=== PATIENT | female | born 1960 | race Caucasian/White ===

== ENCOUNTER 2025-03-28 08:31 | Emergency (ER) | payer OTHER, SELFPAY ==
[2025-03-28] VITALS (11 sets, daily range): BP systolic 162–191; BP diastolic 78–104
[2025-03-28 08:55] LABS: % Basophils 0.7 % (0-2); % Eosinophils 0.9 % (0-6); % Immature Granulocytes 1.1 % (0-0.5); % Lymphocytes 13.4 % (20.5-51.1); % Monocytes 5.4 % (1.7-9.3); % Neutrophils 78.5 % (42.2-75.2); Absolute Basophils 0.1 10^3/uL (0-0.2); Absolute Eosinophils 0.1 10^3/uL (0-0.7); Absolute Immature Granulocytes 0.1 10^3/uL (0-0.05); Absolute Lymphocytes 1.4 10^3/uL (1.2-3.4); Absolute Monocytes 0.6 10^3/uL (0.1-0.6); Hematocrit 27.3 % (37.0-47.0); Hemoglobin 9.5 g/dL (12.0-16.0); Mean Corp Hgb Conc. 34.8 g/dL (33.0-37.0); Mean Corpuscular Hgb 31.1 pg (27.0-31.0); Mean Corpuscular Volume 89.5 fL (81.0-99.0); Mean Platelet Volume 10.3 fL (7.4-10.4); Nucleated Red Blood Cells % 0 %; Platelet Count 355 10^3/uL (130-400); Red Blood Cell Count 3.05 10^6/uL (4.20-5.40); Red Cell Dist. Width 14.5 % (11.5-14.5); White Blood Cell Count 10.2 10^3/uL (4.8-10.8)
--- NOTE | 2025-03-28 08:59 | ED.GENMED ---
History of Present Illness
General
Chief Complaint: Vomiting Blood
Source: patient, records and intermediate records
Exam Limitations: none
Time Seen by Provider: 03/28/25 08:34
Nursing documentation reviewed up to this point in time: agreed with
History of Present Illness
History of Present Illness:
64-year-old female with a past medical history of hypertension, diabetes, ESRD on dialysis, GERD and Wallis's esophagus, hypothyroidism, chronic anemia, TIA, chronic left foot wound, chronic pancreatitis with GJ tube who presents to the emergency
department from [facility] for evaluation of vomiting. Patient notably was admitted at [facility] about 6 weeks ago�partha says she was admitted for infected foot and redness and unfortunately during this hospitalization had to
be transition from peritoneal dialysis (had been on PD for 2.5 years) to hemodialysis; she also had a GJ tube placed for vomiting related to chronic pancreatitis. She presents today with vomiting that she says started yesterday evening and has been
profuse and constant since. She says vomit is dark brown (coffee-ground emesis in basin during assessment). She reports some mild discomfort in the epigastrium. Denies any diarrhea or constipation. She denies fever or chills. Has not had any
chest pain. She denies any other complaints. Her last dialysis session was 2 days ago on Wednesday she reports a full uncomplicated session; she was due for dialysis this morning but instead was sent to the ER.
Review of Systems
Review of Systems
All Other Systems: ROS reviewed and negative except as documented in HPI and ROS
Constitutional: Denies fever
Respiratory: Denies trouble breathing
Cardiac: Denies chest pain
ABD/GI: Reports abdominal pain, nausea and vomiting; Denies diarrhea
: Denies flank pain
Musculoskeletal: Denies neck pain
Neurological: Denies headache
Phy Exam
Physical Exam
Physical Exam:
General: Awake, alert, oriented x3; holding emesis bag occasionally vomiting
Head: Normocephalic, atraumatic
Eyes: Conjunctiva normal, sclera anicteric
Throat: Airway intact, mucous membranes slightly dry
Neck: Trachea midline, supple without meningismus
Lungs: Clear to auscultation bilaterally, no wheezing, rales, rhonchi
Heart: Regular rate and rhythm, no murmurs, gallops, or rubs
Abd: Soft, non distended, mildly tender in the epigastrium; she has a GJ tube in place; she has surgical incision in the mid abdomen with spencer in place�no drainage, no erythema, warmth or signs of infection near surgical site
Neuro: No gross deficits
Skin: no rash; hemodialysis catheter right chest wall with no signs of infection; chronic left foot wound
Extremities: Warm and well-perfused
Scores
Heart Failure Risk
Heart Failure Risk Score: Not Applicable
Heart Score for Chest Pain Patients
STEMI patient?: Not applicable
Withdrawal Assessment of Alcohol
Withdrawal Assessment Completed?: Not applicable
Course
Orders/Labs/Results
Orders:
Orders
03/28/25 08:42
Bedside Glucose- Treatment ONCE
Ondansetron Injectable [Zofran] 4 mg IV NOW STA
03/28/25 08:43
Electrocardiogram (*1) Urgent
Reason for Study: QTc Monitoring
CT Abd/pelvis W Iv Cont Urgent
Comment:
Reason For Exam: abd pain, N/V, recent GJ tube
EKG- Treatment ONCE
Urinalysis Reflex To Culture Urgent
0.9% Sodium Chloride 500 ml [Nss] 500 ml IV BOLUS
03/28/25 08:48
Complete Blood Count/With Diff Urgent
Troponin I Urgent
03/28/25 09:21
Pantoprazole [Protonix IV] 40 mg IV NOW STA
03/28/25 10:11
Basic Metabolic Panel Stat
Lipase Stat
PTT Urgent
Prothrombin Time Urgent
03/28/25 10:54
Type+Screen Routine
BBK Wristband Number:
Magnesium Urgent
Potassium Urgent
03/28/25 12:03
ABO2 Routine
BBK Wristband Number:
Associate notified that ABO2 has been ordered: [id number]
Date: 03/28/25
Time: 11:20
Automotive Assembler ID: [id number]
03/28/25 15:32
Vital Signs- Treatment ONCE
Frequency: Once
Comment: respiratory rate
Abnormal Lab Results
03/28/25 03/28/25 03/28/25
08:48 10:11 10:54
RBC 3.05 L 10^6/uL
(4.20-5.40)
Hgb 9.5 L g/dL
(12.0-16.0)
Hct 27.3 L %
(37.0-47.0)
MCH 31.1 H pg
(27.0-31.0)
Abs Immat Gran (auto) 0.1 H 10^3/uL
(0-0.05)
Absolute Neuts (auto) 8.0 H 10^3/uL
(1.4-6.5)
Immature Gran % 1.1 H %
(0-0.5)
Neutrophils % 78.5 H %
(42.2-75.2)
Lymphocytes % 13.4 L %
(20.5-51.1)
APTT 36.7 H Sec
(23.4-35.0)
Sodium 132 L mmol/L
(135-145)
Chloride 91 L mmol/L
(98-107)
BUN 33 H mg/dl
(7-17)
Creatinine 2.1 H mg/dL
(0.6-1.0)
Glucose 123 H mg/dl
(70-99)
Magnesium 2.5 H mg/dl
(1.6-2.3)
POC Glucose
03/28/25
12:09
RBC
Hgb
Hct
MCH
Abs Immat Gran (auto)
Absolute Neuts (auto)
Immature Gran %
Neutrophils %
Lymphocytes %
APTT
Sodium
Chloride
BUN
Creatinine
Glucose
Magnesium
POC Glucose 125 H mg/dl
(70-99)
03/28/25 08:48
03/28/25 10:54
Vital Signs
Initial and Last Documented VS:
Initial Vital Signs
Pulse Pulse Ox
102 95
03/28/25 08:39 03/28/25 08:39
Last Documented Vital Signs
Temp Pulse BP Pulse Ox
36.5 C 91 178/82 93
03/28/25 08:43 03/28/25 15:45 03/28/25 15:00 03/28/25 15:45
MDM/Problems Addressed
Differential Diagnosis Includes:
Pancreatitis, cholecystitis, cholelithiasis, gastritis, bowel obstruction, DKA, anginal equivalent, uremia
MDM/Problems Addressed:
64-year-old female with history as noted, recent hospitalization and placement of GJ tube for chronic pancreatitis presents to the ER for evaluation of nausea/vomiting�dark brown coffee-ground emesis noted on assessment. She is hypertensive and
mildly tachycardic but otherwise normal vitals. Physical exam is as above. Will place large-bore IV send labs including a CBC and a CMP, lipase, troponin, type and screen and coags. Will treat with IV PPI for some upper GI bleeding associated
with vomiting. Will check CT abdomen pelvis. Will monitor closely reassess after the above.
Labs reviewed: CBC shows anemia with a hemoglobin of 9.5�no priors available for comparison. CMP shows findings consistent with known ESRD. Her lipase is normal. CT abdomen pelvis shows no acute abnormalities. No additional vomiting since Zoan
here. Patient's is now at bedside�at this point I think she should be admitted for trending of hemoglobin and monitoring of bleeding with concern for upper GI bleed. She was given PPI. Patient and are requesting that she be
transferred to [facility] for continuity of care as all of her physicians are through [facility]. Will discuss with transfer center there.
Spoke with the hospitalist at [facility] (Dr. Bravo) and patient was accepted for transfer. Will monitor pending transport.
Chronic conditions affecting care:
ESRD, chronic pancreatitis
Acute Exacerbation and/or Progression of Chronic Illness:
Acutely hypertensive
Acute Exacerbation and/or Progression of Chronic Illness: HTN
*Radiology
Radiology exam reviewed: radiology read reviewed
*Pulse Oximetry
SaO2: 95
Oxygen Mode of Delivery: Room air
Patient hypoxic: no (95%)
*Critical Care Note
Total Time (30-74mins, 75-104mins- exclusive of procedures): Not Applicable
Data Reviewed
Source: patient, records and intermediate records
Patient Management
Discussion with other providers: Hospitalist (Discussed with accepting hospitalist at [facility])
Escalation/DeEscalation of care consider admission/obs:
Admission indicated�transfer
ED Attending Note
-
Portions of this chart may have been created with voice recognition software.� Occasional wrong word or��sound alike� substitutions may have occurred due to the inherent limitations of voice recognition software.
Discharge Plan
Departure
Patient Disposition: Acute Care Hospital
Date of Disposition: 03/28/25
Time of Disposition: 14:19
Discharge Problem:
Acute upper GI bleed
Referrals:
Mario Peres, [Family Provider, Internal Medicine]
Hospital Transfer
Other hospital: [facility]
I certify that the patient requires transfer: Yes
Discussed case with accepting physician: Dr. Aure Sampson
Reason for transfer: continuity of care PCP and other
Interventions
Interventions:
*Risk Screen - Suicide Last Done: 03/28/25 08:43
*General Assessment Last Done: 03/28/25 08:43
*Neglect/Abuse Screening Last Done: 03/28/25 08:43
*ED- Fall Risk Assessment Last Done: 03/28/25 12:32
*ED COVID-19 Vaccine History Last Done: 03/28/25 12:32
VY-Mndsyx-Xqpoadyltw Assessment Last Done: 03/28/25 09:05
ED- Cardiac Assessment Last Done: 03/28/25 08:44
ED- Pulmonary Assessment Last Done: 03/28/25 09:05
Discharge Date and Time
Print Language: CHADIAN
[2025-03-28 09:38] LABS: Troponin I 0.029 ng/ml
[2025-03-28] MEDS: PROTONIX IV 40 MG IV (09:45)
[2025-03-28] MEDS: ZOFRAN 4 MG IV ×2 (09:47→10:09)
[2025-03-28 10:30] LABS: INR 1.05; PT 14.2 Sec (11.4-14.6)
[2025-03-28 10:31] LABS: APTT 36.7 Sec (23.4-35.0)
[2025-03-28 10:36] LABS: Blood Urea Nitrogen 33 mg/dl (7-17); Calcium 9.2 mg/dl (8.4-10.2); Carbon Dioxide 29 mmol/L (22-30); Chloride 91 mmol/L (98-107); Estimated Creatinine Clearance 32 ml/min; Glucose 123 mg/dl (70-99); Lipase 34 U/L (23-300); Sodium 132 mmol/L (135-145); eGFR 25.51
[2025-03-28 11:20] LABS: Magnesium 2.5 mg/dl (1.6-2.3); Potassium 4.7 mmol/L (3.5-5.1)
[2025-03-28 12:12] LABS: Glucose - Point of Care 125 mg/dl (70-99)
--- NOTE | 2025-03-28 14:10 | EDRN ---
Pt and family state that the PT is unable to give a urine sample. She states that her kidneys are 'shut down' and that we would have to pump her full of fluid and cath her. Provider made aware and stated that he is ok without the UA.
[2025-03-28] MEDS: MORPHINE SULFATE 2 MG IV (18:35)
== END 2025-03-28 20:00 | disposition short-term general hospital (02) ==
LOC: EMR 08:31
PROVIDERS: EMERGENCY PHYSICIAN Emergency Medicine; FAMILY PHYSICIAN Internal Medicine
DX: K92.2 Gastrointestinal hemorrhage, unspecified (principal); E03.9 Hypothyroidism, unspecified; E11.22 Type 2 diabetes mellitus with diabetic chronic kidney disease; I12.0 Hypertensive chronic kidney disease with stage 5 chronic kidney disease or end stage renal disease; N18.6 End stage renal disease; Z99.2 Dependence on renal dialysis; Z86.73 Personal history of transient ischemic attack (TIA), and cerebral infarction without residual deficits; Z93.1 Gastrostomy status; K86.1 Other chronic pancreatitis
CPT/HCPCS: 96374; 96375; 99285; 74177; 80048; 82962; 83690; 83735; 84132; 84484; 85025; 85610; 85730; 86850; 86900; 86901; 93005; Q9967

== ENCOUNTER 2025-04-13 11:17 | Inpatient (IN) | payer OTHER, SELFPAY ==
[2025-04-13] VITALS (42 sets, daily range): BP systolic 114–219; BP diastolic 62–130; PULSE 85; BMI 36.8; BMI 35.2
--- NOTE | 2025-04-13 09:38 | EDRN ---
Port CXR done at this time.
--- NOTE | 2025-04-13 09:44 | ED.GENMED ---
History of Present Illness
General
Chief Complaint: Breathing Problem
Source: patient, records, spouse and ambulance crew
Exam Limitations: none
Time Seen by Provider: 04/13/25 09:31
Nursing documentation reviewed up to this point in time: agreed with
History of Present Illness
History of Present Illness:
64-year-old female with a past medical history of hypertension, diabetes, ESRD on dialysis, GERD, hypothyroidism, chronic anemia, TIA, chronic pancreatitis with GJ tube who presents to the emergency department from [facility] for
evaluation of shortness of breath. Patient reports that she woke up today with significant shortness of breath�per EMS report staff noted she was hypoxic and tachypneic and EMS was called to bring her to the hospital. Per EMS on their arrival she
was hypoxic to 82% and tachypneic with labored breathing; she was placed on 4 L nasal cannula with some improvement and transported to the emergency room. Patient reports that she feels very short of breath but denies feeling chest pain. She has
had mild cough recently. She has some nausea but no vomiting. Has not noticed increased swelling in the legs. She was due for dialysis today but due to her respiratory symptoms did not receive treatment. Of note she was recently admitted at [facility] for prolonged hospitalization at which point she was transition from peritoneal dialysis to hemodialysis and had GJ tube placed; she returned with upper GI bleeding to this emergency room on 03/28 and was transferred back to [facility] at
patient request before returning to [facility].
Review of Systems
Review of Systems
All Other Systems: ROS reviewed and negative except as documented in HPI and ROS
Constitutional: Denies fever
Respiratory: Reports cough and trouble breathing
Cardiac: Denies chest pain
ABD/GI: Reports nausea; Denies abdominal pain or vomiting
Musculoskeletal: Denies edema
Neurological: Denies dizzy or headache
Phy Exam
Physical Exam
Physical Exam:
General: Awake, alert, moderate respiratory distress
Head: Normocephalic, atraumatic
Eyes: Conjunctiva normal, sclera anicteric
Throat: Airway intact, handling secretions
Neck: Trachea midline, slight JVD
Lungs: Patient has diffuse wheeze, tachypnea, speaking in 1-2 word sentences, hypoxic requiring 4 L nasal cannula
Heart: Tachycardia with regular rhythm, no murmurs, gallops, or rubs
Abd: Soft, non distended, nontender; GJ tube in place
Extremities: Trace edema on the legs bilaterally, extremities warm and well-perfused
Scores
Heart Failure Risk
Heart Failure Risk Score: Not Applicable
Heart Score for Chest Pain Patients
STEMI patient?: Not applicable
Withdrawal Assessment of Alcohol
Withdrawal Assessment Completed?: Not applicable
Course
Orders/Labs/Results
Orders:
Orders
04/13/25 09:31
Electrocardiogram (*1) Urgent
Reason for Study: Chest Pain
Cardiac Monitoring- Treatment ONCE
EKG- Treatment ONCE
04/13/25 09:32
CR Chest Portable - 1 View Urgent
Comment:
Reason For Exam: sob
Reason Study Needs to be Portable: Unable to Transport
04/13/25 09:37
Nitroglycerin Sublingual [Nitrostat (Sublingual)] 0.4 mg SL NOW STA
04/13/25 09:43
Complete Blood Count/With Diff Urgent
Comprehensive Metabolic Panel Urgent
Ferritin Urgent
Iron Urgent
NT-proBNP Urgent
Total Iron Binding Urgent
04/13/25 09:51
Furosemide [Lasix] 40 mg IV NOW STA
Furosemide [Lasix] 80 mg IV NOW STA
04/13/25 Lunch
NPO
Allow oral meds: Yes
Allow clear liquids: No
04/13/25 10:09
NEPHROLOGY CONSULT Urgent
Consulting Provider: Kya Robbins
Was physician already notified: Yes
04/13/25 10:15
Type+Screen Urgent
Venous Blood Gas Urgent
%Oxygen/Room Air: 82%
04/13/25 10:56
Admit/Transfer Patient As Directed
Co-Sign Provider:
Level of Care: Inpatient admission
Assign to:: IMU- Intermediate Care
Physician / Group: Shahrzad Howard
Diagnosis: acute heart failure exacerbation
Reason for Hospitalization: acute heart failure, ESRD on HD
Expected length of stay greater than two midnights?: Yes
ELOS- Estimated Length of Stay in days: 3
I certify the patient meets the requirements for IP care: Yes
04/13/25 10:57
PRN Pain Medication Management As Directed
May give lesser potent ordered pain med per pt: Yes
preference::
Protocol:: Medication orders for pain may be administered in a
manner that supports deferring to patient preference
when the pt is:
- Requesting an ordered lesser potent pain medication.
Least to most potent pain medications are defined
as: acetaminophen < NSAID < tramadol < opioids
(morphine, oxycodone, hydromorphone).
- Requesting a lesser dose of the same medication IF
ORDERED.
- Requesting a less intrusive route of administration
if both routes are prescribed by the provider (PO <
IV).
04/13/25 11:00
Nitroglycerin 100 mg/250 ml [Nitroglycerin Premix] 100 mg in 250 ml IV PER PROTOCOL
Initial dose in mcg/min, then titrate:: 5
Titrate to keep:: SBP < 160 mmHg
Titrate by mcg/min:: 5 mcg/min, may increase by 10 mcg/min if dose > 20 mcg/min
Frequency of titrations (minutes):: every 3-5 minutes
Maximum dose in mcg/min:: 200
Begin to taper infusion when:: Remained at goal for 2hrs
Taper by mcg/min:: 5 mcg/min
Frequency of taper (minutes) if patient maintains goal:: 30
Taper to off?: Yes
If infusion off & no longer maintaining goal:: Contact Provider
04/13/25 11:01
Code Status As Directed
Resuscitation Status: Full Code
04/13/25 11:[address] Non Medication Order As Directed
Physician Order: please wait until arrives prior to sending patient upstairs (wants to accept
admission first)
Above order entered?: Yes
04/13/25 11:12
Epoetin Mor-Epbx [Retacrit] 10,000 units IV HD-ONCE ONE
Heparin 500 units IV HD-ONCE ONE
Heparin 500 units IV HD-ONCE ONE
Heparin See Dose Instructions INTRACATH HD-ONCE ONE
Hemodialysis treatment As Directed
Treatment date:: 04/13/25
Treatment type: Hemodialysis
Ultrafiltration (kg): 2.5-3.5
Treatment time (duration): 3 hours 30 minutes
Use dialysis access:: Tunneled Cath
Dialyzer:: Optiflux 160
Blood flow rate minimum: 350
Blood flow rate maximum: 400
Dialysis flow rate: 600 mL/min
Dialysate temperature: 37 degrees Celsius
Sodium (Na): 137
Potassium (K): 2
Calcium (Ca): 2.5
Bicarbonate (HCO3): 35
04/13/25 11:13
Add On- LAB Routine
Tests Added?: Iron, Ferritin, TIBC, iron % saturation
04/13/25 11:40
Troponin I Q6H
04/13/25 12:14
Acetaminophen [Tylenol] 650 mg TUBE Q6HPRN PRN mild pain
Bisacodyl [Dulcolax] 10 mg RECTAL DAILYPRN PRN constipation
HydrOXYZINE [Atarax] 25 mg TUBE Q6HPRN PRN itching
Oxycodone [Roxicodone Oral Solution] 15 mg TUBE Q6HPRN PRN severe pains
Polyethylene Glycol Powder [Miralax] 17 grams TUBE DAILYPRN PRN constipation
Scopolamine [Transderm-Scop] 1 patch TRANSDERM Q3D
Sucralfate [Carafate] 1 gram TUBE BID
ammonium lactate 1 applic TOPICAL DAILYPRN PRN
guaifenesin 200 mg TUBE Q4HPRN PRN
hydralazine 100 mg TUBE Q8H
melatonin 10 mg TUBE HSPRN PRN
04/13/25 12:14
Echo 2D MMode Color/Doppler Routine
Reason for Study: acute heart failure
Activity As Directed
Activity Level: As Tolerated
Nursing to Place Non Medication Order As Directed
Physician Order: please TT me afternoon Hg results
Obtain Records As Directed
Dates of Information to be Released: 2024
Type of Information Requested: Discharge Summary
Consults
ER Record
Comment: 2 admissions to [facility] this year
Pneumatic Compression Sleeves As Directed
Type: Knee high
Vital Signs As Directed
Frequency: Per unit guidelines
DX Deep Vein Thrombosis Video Routine
04/13/25 Dinner
Tube Feeding
At Your Request: Non-Participating
Tube Feeding Product: Nepro w/ Carb Steady
Initial continuous pump rate (mL/hr): 20 ml/hr
Advance to goal rate (mL/hr): 45
Flush Continuous pump feedings with water (mL/hr): 25
04/13/25 16:00
Hemoglobin Routine
Clonidine [Catapres] 0.3 mg TUBE TID
04/13/25 17:00
Troponin I Q6H
04/13/25 20:00
Cholestyramine [Questran] 4 gram TUBE BID
buspirone 30 mg TUBE BID
dorzolamide-timolol (PF) 1 drop BOTH EYES BID
nystatin 1 applic TOPICAL BID
04/13/25 22:00
FAMOTIDINE /peds [PEPCID /peds] 10 mg TUBE HS
Latanoprost [Xalatan Ophthalmic Solution] 1 drop BOTH EYES HS
Mirtazapine [Remeron] 15 mg TUBE HS
simvastatin [Zocor] 40 mg TUBE HS
04/13/25 23:00
Troponin I Q6H
04/14/25 06:00
Basic Metabolic Panel IN AM
Cardiovascular Evaluation IN AM
Complete Blood Count/No Diff IN AM
Magnesium IN AM
Levothyroxine [Synthroid] 50 mcg TUBE DAILY@0600
04/14/25 08:00
Aspirin Low Dose EC [Aspir Low (Enteric Coated)] 81 mg S DAILY
Bupropion Regular Release [Wellbutrin Regular Release] 300 mg TUBE DAILY
Docusate W/Senna [Senokot-S] 1 tablet TUBE DAILY
Doxazosin Mesylate [Cardura] 2 mg TUBE DAILY
Lansoprazole [Prevacid] 30 mg TUBE DAILY
Pyridoxine [Vitamin B-6] 50 mg TUBE DAILY
Abnormal Lab Results
04/13/25 04/13/25
09:43 10:15
WBC 12.8 H 10^3/uL
(4.8-10.8)
RBC 2.36 L 10^6/uL
(4.20-5.40)
Hgb 7.1 L g/dL
(12.0-16.0)
Hct 21.3 L %
(37.0-47.0)
RDW 15.3 H %
(11.5-14.5)
MPV 10.7 H fL
(7.4-10.4)
Abs Immat Gran (auto) 0.1 H 10^3/uL
(0-0.05)
Absolute Neuts (auto) 9.8 H 10^3/uL
(1.4-6.5)
Absolute Monos (auto) 1.2 H 10^3/uL
(0.1-0.6)
Neutrophils % 76.6 H %
(42.2-75.2)
Lymphocytes % 12.1 L %
(20.5-51.1)
Monocytes % 9.5 H %
(1.7-9.3)
VBG pO2 177 H mmHg
(30-50)
Sodium 130 L mmol/L
(135-145)
Potassium 5.4 H mmol/L
(3.5-5.1)
Chloride 97 L mmol/L
(98-107)
BUN 38 H mg/dl
(7-17)
Creatinine 1.8 H mg/dL
(0.6-1.0)
Glucose 180 H mg/dl
(70-99)
TIBC 173 L ug/dl
(265-497)
Ferritin 936.0 H ng/ml
(11.1-264.0)
Alkaline Phosphatase 326 H U/L
(38-126)
Total Protein 6.0 L g/dl
(6.3-8.2)
Albumin 2.8 L g/dl
(3.5-5.0)
04/13/25 09:43
04/13/25 09:43
Vital Signs
Initial and Last Documented VS:
Initial Vital Signs
Temp Pulse Resp BP Pulse Ox
36.9 C 102 30 219/103 86
04/13/25 09:20 04/13/25 09:20 04/13/25 09:20 04/13/25 09:20 04/13/25 09:20
Last Documented Vital Signs
Temp Pulse Resp BP Pulse Ox
36.7 C 82 9 125/67 97
04/13/25 12:42 04/13/25 14:30 04/13/25 14:30 04/13/25 14:30 04/13/25 14:37
MDM/Problems Addressed
Differential Diagnosis Includes:
Volume/circulatory overload, congestive heart failure/flash pulmonary edema, pneumonia, pneumothorax, pulmonary embolism, hypertensive crisis
MDM/Problems Addressed:
64-year-old female with extensive history as described presents from [facility] for evaluation of respiratory distress�hypoxia and tachypnea with increased work of breathing. On arrival here she is in moderate respiratory distress with hypoxia and
tachypnea requiring 4 L nasal cannula�oxygenation improved but she remains mildly tachypneic despite supplemental oxygen. Will monitor respiratory status very closely if work of breathing and tachypnea not improving may consider escalation of
BiPAP. She is severely hypertensive with a blood pressure of 219/103 on arrival. Will treat with nitroglycerin. Her exam seems most consistent with volume overload although congestive heart failure/flash pulmonary edema a consideration as well.
Case was discussed with nephrology for expeditious dialysis treatment. Patient still makes urine per her report in the meantime we will treat with 80 mg of IV Lasix. Will manage blood pressure as described above. Usual labs sent off including a
CBC and a CMP, proBNP. Will check VBG. Check stat chest x-ray. Monitor very closely and reassess after the above.
Chest x-ray reviewed by me shows signs consistent with pulmonary edema. On clinical reassessment her respiratory status has stabilized nasal cannula with acceptable oxygenation, improvement in her respiratory rate and work of breathing. Discussed
with nephrology and they are facilitating dialysis treatment. Patient given Lasix and nitroglycerin and her blood pressure is improving�down from 219/103 to 172/83. Continue to monitor very closely.
Lab work reviewed: CBC does show anemia with a hemoglobin of 7.1�prior hemoglobin here was 9.5. I spoke with patient and her brother who is now at the bedside and it sounds like her baseline is closer to 7 and so this is not necessarily an unusual
number for her today�in fact they were surprised to hear that she was at 9.5 on prior hemoglobin check. She has occasionally required transfusions from GI bleeding related to esophagitis and it sounds like her prior visit that resulted in transfer
to [facility] ended up in an endoscopy showing esophagitis as likely source of bleeding. She has been on Carafate and PPI. She has not had any hematemesis or hematochezia/melena since leaving [facility] recently she says. Nevertheless I did
consent for blood in case of need and we will need to trend her hemoglobin. On review of her chemistry today, signs consistent with ESRD. Case was discussed with hospitalist to facilitate admission for this patient.
Chronic conditions affecting care:
ESRD, hypertension
Acute Exacerbation and/or Progression of Chronic Illness:
Acutely hypertensive managed as above
Acute Exacerbation and/or Progression of Chronic Illness: HTN
*Pulse Oximetry
SaO2: 99
Nasal Cannula flow liters per minute: 2
Oxygen Mode of Delivery: Room air
Patient hypoxic: yes (82% on room air)
*EKG
Interpreted by ED Provider?: Yes
Heart Rate: 103
Rate: tachycardiac
Rhythm: sinus tachycardia
[place]: normal axis
Interval: normal interval
QRS Pattern: normal QRS
Ischemia: non-specific ST changes
*Critical Care Note
Total Time (30-74mins, 75-104mins- exclusive of procedures): 36
comment:
Critical care statement: A total of 36 minutes of critical care time was provided for this patient. This includes management of unstable vital signs, evaluation of the patient at bedside, frequent reassessment, discussion with
consultants/hospitalist, and review of pertinent medical records. This time was separate from time utilized to perform any aforementioned documented procedures
Data Reviewed
Review of Other/Old Records Reveals: Labs and Records
Source: patient, records, spouse, ambulance crew and jail records
Patient Management
Discussion with other providers: Hospitalist (Discussed with hospitalist) and Chemist Enzymes (Discussed with dry heat cabinet attendant)
Escalation/DeEscalation of care consider admission/obs:
Admission indicated
ED Attending Note
-
Portions of this chart may have been created with voice recognition software.� Occasional wrong word or��sound alike� substitutions may have occurred due to the inherent limitations of voice recognition software.
Discharge Plan
Departure
Patient Disposition: Admit
Date of Disposition: 04/13/25
Time of Disposition: 10:07
Admit to doctor: Blessingu
Presentation/result/management discussed w/ accepting MD/DO: Hospitalist
Discharge Problem:
Anemia, Volume overload, Pulmonary edema, Hypertensive crisis, Acute hypoxic respiratory failure
Interventions
Interventions:
*Risk Screen - Suicide Last Done: 04/13/25 09:29
*General Assessment Last Done: 04/13/25 09:29
*Neglect/Abuse Screening Last Done: 04/13/25 09:29
*ED- Fall Risk Assessment Last Done: 04/13/25 09:33
*ED COVID-19 Vaccine History Last Done: 04/13/25 09:33
*Nursing Disposition Last Done: 04/13/25 12:10
ED- Cardiac Assessment Last Done: 04/13/25 10:15
ED- Pulmonary Assessment Last Done: 04/13/25 10:15
Discharge Date and Time
Discharge Date/Time: 04/13/25 12:10
[2025-04-13] MEDS: NITROSTAT (SUBLINGUAL) 0.4 MG SL (09:47)
[2025-04-13 09:50] LABS: Hematocrit 21.3 % (37.0-47.0); Hemoglobin 7.1 g/dL (12.0-16.0); Mean Corp Hgb Conc. 33.3 g/dL (33.0-37.0); Mean Corpuscular Volume 90.3 fL (81.0-99.0); Nucleated Red Blood Cells % 0 %; Platelet Count 321 10^3/uL (130-400); Red Cell Dist. Width 15.3 % (11.5-14.5)
--- NOTE | 2025-04-13 09:55 | EDRN ---
Dr. Pickard in room w/ pt.
[2025-04-13 10:11] LABS: ALT (SGPT) 19 U/L (0-35); AST (SGOT) 34 U/L (14-36); Albumin 2.8 g/dl (3.5-5.0); Alkaline Phosphatase 326 U/L (38-126); Blood Urea Nitrogen 38 mg/dl (7-17); Calcium 8.8 mg/dl (8.4-10.2); Carbon Dioxide 22 mmol/L (22-30); Chloride 97 mmol/L (98-107); Estimated Creatinine Clearance 39 ml/min; Glucose 180 mg/dl (70-99); Potassium 5.4 mmol/L (3.5-5.1); Sodium 130 mmol/L (135-145); Total Protein 6.0 g/dl (6.3-8.2); eGFR 30.69
[2025-04-13] MEDS: LASIX 80 MG IV (10:20)
--- NOTE | 2025-04-13 10:20 | EDRN ---
Dr. Rosen in to see pt. POX on oxygen via NC 2lpm was 98%. Pt requesting more oxygen and Dr. Rosen increased oxygen to 3lpom via NC at this time.
[2025-04-13 10:23] LABS: Venous Blood Gas B.E. -0.8 mmol/L (-4 to +4); Venous Blood Gas O2 Sat % 99.5 %
--- NOTE | 2025-04-13 10:28 | EDRN ---
Case Management in to see pt.
--- NOTE | 2025-04-13 10:31 | HPS.HSE ---
Addendum entered and electronically signed by Shahrzad Howard MD 04/13/25 11:30:
updated by patient is on plavix for stents placed in right leg for PAD
she receives sodium thiosulfate for calciphylaxis which I ordered here
GI bleed was related to esophageal irritation which she was prescribed carafate for and takes by mouth
Original Note:
Family Physician
-
Family Physician: Mario Peres, DO
Chief Complaint
-
shortness of breath
History of Present Illness
Ms. 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
presents to the ER from [facility] with shortness of breath.
Patient found to be short of breath by staff, EMS noted patient to be hypoxic to 82% and tachypneic. Patient states last HD was on Wednesday. She has not missed sessions. she was feeling fine yesterday. No recent fevers/chills, no cough or
congestion. This morning she woke up very short of breath. She denies chest pain.
Patient was recently at [facility] for prolonged hospitalization where transitioned form peritoneal dialysis to HD and had GJ tube placed; then readmitted with anemia and GI Bleeding.
Patient states she was given her anti-HTN medications this morning.
Medical History
Past Medical History
Past Medical History: Reports Other (ESRD on HD, essential HTN, DM, GERD, Hypothyroidism, TIA, chronic pancreatitis, s/p GJ tube)
Past Surgical History: Reports Other
Social History
Tobacco: Non-smoker
Alcohol: None
Family History
Family History: Not pertinent
Allergies / Home Medications
Allergies reflects when Allergies were last updated in [facility].
Home Medications with original date entered in [facility]
Allergy/Medication List:
Allergies
Allergy/AdvReac Type Severity Reaction Status Date / Time
iron Allergy diarrhea Verified 04/13/25 09:19
latex Allergy Swelling Verified 04/13/25 09:19
Penicillins Allergy Unknown Verified 04/13/25 09:19
Home Medications
acetaminophen 325 mg tablet (Tylenol) 650 mg feeding tube Q6HPRN PRN mild pain 04/13/25
ammonium lactate 12 % topical cream 1 applic topical DAILYPRN PRN dry skin 04/13/25
aspirin 81 mg tablet,delayed release 81 mg feeding tube DAILY 04/13/25
bisacodyl 10 mg rectal suppository (Dulcolax (bisacodyl)) 10 mg [place] DAILYPRN PRN constipation 04/13/25
bupropion HCl 100 mg tablet 300 mg PO DAILY g-tube 04/13/25
buspirone 30 mg tablet 30 mg feeding tube BID 04/13/25
cholestyramine (with sugar) 4 gram powder for susp in a packet (Questran) 4 g feeding tube BID 04/13/25
clonidine HCl 0.3 mg tablet 0.3 mg feeding tube TID 04/13/25
clopidogrel 75 mg tablet (Plavix) 75 mg feeding tube DAILY 04/13/25
colestipol 1 gram tablet (Colestid) 4 g PO BID g-tube 04/13/25
dorzolamide-timolol (PF) 2 %-0.5 % eye drops in a dropperette 1 drp BOTH EYES BID 04/13/25
doxazosin 2 mg tablet 2 mg feeding tube DAILY 04/13/25
famotidine 40 mg/5 mL (8 mg/mL) oral suspension 20 mg feeding tube HS 04/13/25
gemfibrozil 600 mg tablet 600 mg feeding tube BID 04/13/25
guaifenesin 200 mg/5 mL oral liquid 200 mg feeding tube Q4HPRN PRN cough 04/13/25
hydralazine 100 mg tablet 100 mg feeding tube Q6H 04/13/25
hydroxyzine HCl 25 mg tablet 25 mg feeding tube Q6HPRN PRN itching 04/13/25
latanoprost 0.005 % eye drops 1 drp BOTH EYES HS 04/13/25
levothyroxine 50 mcg tablet (Synthroid) 50 mcg feeding tube DAILY 04/13/25
melatonin 10 mg tablet 10 mg feeding tube HSPRN PRN sleep 04/13/25
mirtazapine 15 mg tablet 15 mg feeding tube HS 04/13/25
nystatin 100,000 unit/gram topical powder 1 applic topical BID abd folds 04/13/25
omeprazole 40 mg capsule,delayed release 40 mg feeding tube DAILY 04/13/25
oxycodone 5 mg/5 mL oral solution 15 mg feeding tube Q6HPRN PRN severe pains 04/13/25
polyethylene glycol 3350 17 gram oral powder packet (Miralax) 17 g feeding tube DAILYPRN PRN constipation 04/13/25
pyridoxine (vitamin B6) 50 mg tablet 50 mg feeding tube DAILY 04/13/25
scopolamine base 1 mg over 3 days transdermal patch 1 patch transdermal Q3D 04/13/25
sennosides 8.6 mg-docusate sodium 50 mg tablet (Senna Plus) 1 tab-cap PO DAILY g-tube 04/13/25
simvastatin 40 mg tablet (Zocor) 40 mg feeding tube HS 04/13/25
sodium thiosulfate 12.5 gram/50 mL (250 mg/mL) intravenous solution 25 g IV MOWEFR 04/13/25
sorbitol 70 % solution 30 ml PO DAILYPRN PRN constipation via g-tube 04/13/25
sucralfate 1 gram tablet (Carafate) 1 g feeding tube BID 04/13/25
torsemide 100 mg tablet 100 mg feeding tube DAILY 04/13/25
vitamin B complex 1 tab feeding tube DAILY 04/13/25
Review of Systems
-
History Source: Patient
A 12 point ROS was completed and negative except as noted: Yes
Physical Exam
Vital Signs
Vital Signs
Temp Pulse Resp BP Pulse Ox
98.4 F 96 12 189/84 100
04/13/25 09:20 04/13/25 10:20 04/13/25 10:00 04/13/25 10:20 04/13/25 10:29
Physical Exam
General: Other (tachypneic but able to converse )
HEENT: PERRLA
Respiratory: Rales and Other (mild end expiratory wheezing)
Cardiac: S1/S2 and Regular Rhythm
GI: Other (G-J tube in place; spencer at site of prior peritoneal dialysis tube )
Musculoskeletal: Other (2+ edema; left calf wrapped around areas of calciphylaxis wounds )
Skin: Warm and Dry
Neuro: AO x 3
Psych: Calm
Laboratory Results
-
04/13/25 09:43
04/13/25 09:43
Laboratory Results
Total Bilirubin 0.5 mg/dl (0.2-1.3) 04/13/25 09:43
AST 34 U/L (14-36) 04/13/25 09:43
ALT 19 U/L (0-35) 04/13/25 09:43
Alkaline Phosphatase 326 U/L (38-126) H 04/13/25 09:43
Data Reviewed
-
Diagnostic Radiology: Report Reviewed by me
Lab Data: Labs Reviewed by me
Impression/Plan
-
Ms. 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
presents to the ER from [facility] with shortness of breath.
Triage VS: T 36.9 C, P 102, RR 30, BP 219/103, SpO2 86%
LABS: WBC 12.8, Hg 7.1, PLT 321, Na 130, K+ 5.4, Cl 97, CO2 22, BUN 38, Cr 1.8, Glucose 180, Mag 2.5, T. Bili 0.5, AST 34, ALT 19, Alk Phos 326
CXR
IMPRESSION:
Radiographic findings highly suggestive of pulmonary edema pattern with associated pleural effusions.
MAR: IV lasix x 1, nitro subL
Hypoxic Respiratory Failure
Heart Failure unknown EF, Acute Exacerbation
-patient has not missed HD sessions, volume overloaded on exam requiring urgent HD
-admit to IMU
-currently resp status stable on supplemental O2, appears mildly tachypneic
-s/p nitro x 1, plan was to start nitro gtt but SBP now 150's
-obtain Troponins and trend
-obtain TTE
-Nephrology consulted
-may also require Cardiology consult
Hypertensive Emergency
Essential HTN
-if needed can start nitro gtt, which can easily be weaned off once HD initiated with better BP control
-continue home regimen:
Clonidine 0.3mg tube TID
Doxazosin 2mg tube daily
Hydralazine 100mg tube written as q 6h - ordered for TID here
ESRD on HD
-plans for urgent HD
-Renal consulted
Hx TIA
-MEDICAL HISTORIAN aspirin
-hold plavix with low Hg and recent GI Bleed
Recent hospitalizations at [facility]
-order in to obtain records
Acute on chronic anemia
-she had a recent GI Bleed
-blood consented in ER
-will hold Plavix, while trending Hg
-add on iron studies
-continue MEDICAL HISTORIAN PPI
HLD
-MEDICAL HISTORIAN statin
Chronic Pain, Opiate Dependence
Calciphylaxis
-MEDICAL HISTORIAN Oxycodone PRN
Hypothyroidism - MEDICAL HISTORIAN Synthroid
Anxiety - MEDICAL HISTORIAN Buspar
Gastroparesis
Chronic Pancreatitis
-recent placement G-J tube, need to obtain outside records
DVT PPx SCD with low threshold to start hep subQ if we see Hg stable
FULL CODE - confirmed on admission
Total Critical Care Time 50 minutes. I was immediately available to the patient and staff. I personally examined, reviewed labs, diagnostic images/reports, interpretations, treatment plans, discussed patient care with other providers and family
or caregivers (if patient is unable to make decisions), entered orders as appropriate and documented the medical record.
--- NOTE | 2025-04-13 10:45 | EDRN ---
Dr. Howard in to see pt.
--- NOTE | 2025-04-13 11:01 | CM ---
CM reviewed chart and met with pt and her brother bedside in ED.
Lives in LTC at [facility] since 03/2025 following an admission at [facility], lives in [place]
Is bedbound since 11/2024, uses andriy lift to move from bed to dialysis chair.
Needs assistance with ADLs and personal care.
Receives HD MWF at [facility]. Also has GJ tube.
PCP: Mario Peres
Pharmacy: [facility]
Discharge plan: Anticipate return to [facility] pending ongoing medical evaluation
--- NOTE | 2025-04-13 11:20 | W.CON.NEPH ---
Consultation
-
Date/Time Consultation Requested: 04/13/25 0950
Date/Time Consultation Performed: 04/13/25 1020
Requesting Provider: Will Trejo
Performing Provider: Kya Luis
Reason for Consultation: ESRD
Medical History
-
Chief Complaint: SOB
History of Present Illness:
64 yo woman with hx ESRD initially on PD for 2yrs and then switched to HD since December, on sodium thiosulfate for calciphylaxis, essential HTN on multiple meds, DM not on meds, GERD on carefate, Hypothyroidism on levothyroxine, TIA, chronic
pancreatitis, gastroparesis with GJ tube for tube feedings(recently rate increased to 70cc/hr), bile duct cancer (recently diagnosed, not currently undergoing chemotherapy) presents to the ER from [facility] with shortness of breath.
Patient was recently at [facility] for prolonged hospitalization where transitioned form peritoneal dialysis to HD and had GJ tube placed; then readmitted with anemia and GI Bleeding. Also diagnosed with biliary cancer, calciphylaxis and sent to
[facility] -she as been at [place] for few weeks. Due to abdominal infections PD catheter was removed 1 month ago at [facility]. She does not recall any issues with HD. Has tunneled Rt IJ catheter.
Today pt was preparing to go to HD but noted to have sob when she woke up. per EMS hypoxic to 82% and tachypneic. She has not missed sessions. she was feeling fine yesterday. No recent fevers/chills, no cough or congestion. She denies chest pain.
in ER her BPs are 200 range, feels nausea. no CORREIA. on 2lit of O2 at sat 98%. Nephrology asked for dialysis needs.
Past Medical History
ESRD on HD, essential HTN, DM, GERD, Hypothyroidism, TIA, chronic pancreatitis, s/p GJ tube
Past Surgical History: Other (PD catheter insertion and removal, right CVC )
Social History
Tobacco: Non-Smoker
Alcohol: None
Personal:
Living: [facility]
Employment: Retired (worked as patient care secretary)
Family History
Family History: Not Pertinent
Allergies / Home Medications
Allergy/AdvReac Type Severity Reaction Status Date / Time
iron Allergy diarrhea Verified 04/13/25 09:19
latex Allergy Swelling Verified 04/13/25 09:19
Penicillins Allergy Unknown Verified 04/13/25 09:19
�Medication �Instructions �Recorded �Confirmed �Type
acetaminophen 325 mg tablet 650 mg feeding tube Q6HPRN PRN 04/13/25 04/13/25 History
(Tylenol) mild pain
ammonium lactate 12 % topical cream 1 applic topical DAILYPRN PRN dry 04/13/25 04/13/25 History
skin
aspirin 81 mg tablet,delayed 81 mg feeding tube DAILY 04/13/25 04/13/25 History
release
bisacodyl 10 mg rectal suppository 10 mg [place] DAILYPRN PRN constipation 04/13/25 04/13/25 History
(Dulcolax (bisacodyl))
bupropion HCl 100 mg tablet 300 mg PO DAILY g-tube 04/13/25 04/13/25 History
buspirone 30 mg tablet 30 mg feeding tube BID 04/13/25 04/13/25 History
cholestyramine (with sugar) 4 gram 4 g feeding tube BID 04/13/25 04/13/25 History
powder for susp in a packet
(Questran)
clonidine HCl 0.3 mg tablet 0.3 mg feeding tube TID 04/13/25 04/13/25 History
clopidogrel 75 mg tablet (Plavix) 75 mg feeding tube DAILY 04/13/25 04/13/25 History
colestipol 1 gram tablet (Colestid) 4 g PO BID g-tube 04/13/25 04/13/25 History
dorzolamide-timolol (PF) 2 %-0.5 % 1 drp BOTH EYES BID 04/13/25 04/13/25 History
eye drops in a dropperette
doxazosin 2 mg tablet 2 mg feeding tube DAILY 04/13/25 04/13/25 History
famotidine 40 mg/5 mL (8 mg/mL) 20 mg feeding tube HS 04/13/25 04/13/25 History
oral suspension
gemfibrozil 600 mg tablet 600 mg feeding tube BID 04/13/25 04/13/25 History
guaifenesin 200 mg/5 mL oral liquid 200 mg feeding tube Q4HPRN PRN 04/13/25 04/13/25 History
cough
hydralazine 100 mg tablet 100 mg feeding tube Q8H 04/13/25 04/13/25 History
hydroxyzine HCl 25 mg tablet 25 mg feeding tube Q6HPRN PRN 04/13/25 04/13/25 History
itching
latanoprost 0.005 % eye drops 1 drp BOTH EYES HS 04/13/25 04/13/25 History
levothyroxine 50 mcg tablet 50 mcg feeding tube DAILY 04/13/25 04/13/25 History
(Synthroid)
melatonin 10 mg tablet 10 mg feeding tube HSPRN PRN sleep 04/13/25 04/13/25 History
mirtazapine 15 mg tablet 15 mg feeding tube HS 04/13/25 04/13/25 History
nystatin 100,000 unit/gram topical 1 applic topical BID abd folds 04/13/25 04/13/25 History
powder
omeprazole 40 mg capsule,delayed 40 mg feeding tube DAILY 04/13/25 04/13/25 History
release
oxycodone 5 mg/5 mL oral solution 15 mg feeding tube Q6HPRN PRN 04/13/25 04/13/25 History
severe pains
polyethylene glycol 3350 17 gram 17 g feeding tube DAILYPRN PRN 04/13/25 04/13/25 History
oral powder packet (Miralax) constipation
pyridoxine (vitamin B6) 50 mg 50 mg feeding tube DAILY 04/13/25 04/13/25 History
tablet
scopolamine base 1 mg over 3 days 1 patch transdermal Q3D 04/13/25 04/13/25 History
transdermal patch
sennosides 8.6 mg-docusate sodium 1 tab-cap PO DAILY g-tube 04/13/25 04/13/25 History
50 mg tablet (Senna Plus)
simvastatin 40 mg tablet (Zocor) 40 mg feeding tube HS 04/13/25 04/13/25 History
sodium thiosulfate 12.5 gram/50 mL 25 g IV MOWEFR 04/13/25 04/13/25 History
(250 mg/mL) intravenous solution
sorbitol 70 % solution 30 ml PO DAILYPRN PRN constipation 04/13/25 04/13/25 History
via g-tube
sucralfate 1 gram tablet (Carafate) 1 g feeding tube BID 04/13/25 04/13/25 History
torsemide 100 mg tablet 100 mg feeding tube DAILY 04/13/25 04/13/25 History
vitamin B complex 1 tab feeding tube DAILY 04/13/25 04/13/25 History
Review of Systems
-
All other systems: Negative unless noted
Physical Exam
Vital Signs
Vital Signs
Temp Pulse Resp BP Pulse Ox
98.1 F 78 15 146/68 100
04/13/25 12:42 04/13/25 12:00 04/13/25 12:00 04/13/25 12:00 04/13/25 12:00
Lab Results
WBC 12.8 10^3/uL (4.8-10.8) H 04/13/25 09:43
RBC 2.36 10^6/uL (4.20-5.40) L 04/13/25 09:43
Hct 21.3 % (37.0-47.0) L 04/13/25 09:43
Plt Count 321 10^3/uL (130-400) 04/13/25 09:43
Sodium 130 mmol/L (135-145) L 04/13/25 09:43
Potassium 5.4 mmol/L (3.5-5.1) H 04/13/25 09:43
Chloride 97 mmol/L (98-107) L 04/13/25 09:43
Carbon Dioxide 22 mmol/L (22-30) 04/13/25 09:43
BUN 38 mg/dl (7-17) H 04/13/25 09:43
Creatinine 1.8 mg/dL (0.6-1.0) H 04/13/25:43
eGFR 30.69 04/13/25:43
Glucose 180 mg/dl (70-99) H 04/13/25:43
Calcium 8.8 mg/dl (8.4-10.2) 04/13/25:43
Spz-I-[id number] Pept > 36161 pg/ml 04/13/25:43
Albumin 2.8 g/dl (3.5-5.0) L 04/13/25:43
Physical Exam
General: Awake, Alert, Oriented, AOx3 and Nontoxic
HEENT: EOMI, Anicteric and Facial Symmetry
Cardiac: S1/S2 and Regular Rate/Rhythm
Breast: Deferred by me
Abdomen: Soft, Nontender and Nondistended
Musculoskeletal: No Cyanosis and Edema
Skin: No Rash
Neuro: Nonfocal/Grossly Intact
Psych: Appropriate
Data Reviewed
-
Radiology: Report Reviewed by me, Discussed with Patient and Discussed with Family
Labs: Labs Reviewed by me, Discussed with Patient and Discussed with Family
Assessment/Plan
-
IMP:
Hypoxic Respiratory Failure
Heart Failure unknown EF, Acute Exacerbation
Hypertensive Emergency
Essential HTN
mild hyperkalemia
ESRD on HD at [facility] IJ HD catheter
Hx TIA
Recent hospitalizations at [facility]
Acute on chronic anemia
h/o GIB
HLD
Chronic Pain, Opiate Dependence
Calciphylaxis
Hypothyroidism
hyponatremia
Anxiety
Gastroparesis- GJ tube
Chronic Pancreatitis
Recent disgnosis of biliary malignancy
Hypoalbuminemia
Plan:
A/w sob, HTN emergency from vol overload
plan HD today and UF as tolerates
resume sodium thiosulfate for caliphylaxis
wean nitro gtt and resume home meds after HD
renal diet and FR strictly
anemia-high dose MARGARET, check fe panel, prn transfusion
await records
d/w pt and family at bedside
--- NOTE | 2025-04-13 11:21 | EDRN ---
Dr. Howard in room w/pt speaking w/ spouse.
--- NOTE | 2025-04-13 11:33 | EDRN ---
Dr. Rosen in room w/ pt at this time.
[2025-04-13 11:47] LABS: Iron 68 ug/dl (37-170)
[2025-04-13 11:56] LABS: Total Iron Binding Capacity 173 ug/dl (265-497)
[2025-04-13 12:44] LABS: Troponin I 0.164 ng/ml
[2025-04-13] MEDS: HEPARIN 500 UNITS IV ×2 (12:55→13:55)
[2025-04-13 13:01] LABS: Glucose - Point of Care 141 mg/dl (70-99)
[2025-04-13] MEDS: RETACRIT 10000 UNITS IV (14:02)
--- NOTE | 2025-04-13 14:10 | PTCARENOTE ---
Patient arrived to IMU from ED. AOx3. Patient is drowsy, but arouses to voice. On 2L NC with SpO2 greater than 92%. NSR on monitor. G tube in place. See worklist for wound care. Wound care consulted. Call garcia within reach, bed in lowest position,
and bed of wheels locked.
[2025-04-13] MEDS: FLEXBUMIN 25% FOR HEMODIALYSIS 12.5 GRAMS IV ×2 (14:36→15:25)
[2025-04-13] MEDS: MANNITOL 25% 12.5 GRAMS IV ×2 (14:36→15:35)
--- NOTE | 2025-04-13 14:40 | CON.CAR ---
Addendum entered and electronically signed by Stoney Mcneill MD 04/13/25 15:50:
Patient seen and examined in collaboration with FILM OR VIDEOTAPE EDITOR; agree with below.
- 64-year-old female with end-stage renal disease/HD, hypertension, hyperlipidemia, diabetes, previous TIA, chronic pancreatitis, and gastroparesis presenting with volume overload likely secondary to hypertensive crisis (219/103 mmHg). Cardiology
was consulted for minimal troponin elevation of 0.164.
- Troponin elevation is most likely secondary to acute nonischemic myocardial injury in the setting of hypertensive emergency and volume overload (ESRD/HD).
- Patient is currently receiving dialysis; blood pressure is now normalized.
- Echocardiogram.
- Trend cardiac enzymes.
- school lunch monitor; will follow.
Original Note:
Consultation
Consultation Request
Date/Time Consultation Requested: 04/13/2025 12:45
Date/Time Consultation Performed: 04/13/2025 14:00
Requesting Provider: Dr. Howard
Performing Provider: CAR Hollis for Dr. Mcneill
Reason for Consultation: Shortness of breath
Medical History
-
Chief Complaint: Shortness of breath
History of Present Illness:
Grace Parker is a 64-year-old female with ESRD on HD, calciphylaxis, hypertension, type 2 diabetes mellitus, TIA, chronic pancreatitis, bile duct cancer, and gastroparesis with GJ tube who presented to the emergency department with a chief
complaint of shortness of breath. She resides at [facility]. She was recently at hemodialysis for a prolonged hospitalization where peritoneal dialysis was transition to hemodialysis. During that hospitalization she also had a GJ tube placed.
Her shortness of breath started today. Per EMS, SpO2 was 82% and she was tachypneic. CXR consistent with pulmonary edema. She is due for dialysis today. Cardiology was consulted for an abnormal troponin of 0.164. Her triage blood pressure was
219/103 mmHg
Past Medical History
Past Medical History: Cancer (Bile duct), HTN, Hypercholesterolemia, NIDDM, Renal Failure (ESRD on HD) and Other (TIA)
Social History
Tobacco: Non-Smoker
Alcohol: None
Living: Shelter ([facility])
Employment: Retired
Family History
Family History: Reviewed & Not Pertinent
Allergies / Home Medications
Allergy/AdvReac Type Severity Reaction Status Date / Time
iron Allergy diarrhea Verified 04/13/25 09:19
latex Allergy Swelling Verified 04/13/25 09:19
Penicillins Allergy Unknown Verified 04/13/25 09:19
�Medication �Instructions �Recorded �Confirmed �Type
acetaminophen 325 mg tablet 650 mg feeding tube Q6HPRN PRN 04/13/25 04/13/25 History
(Tylenol) mild pain
ammonium lactate 12 % topical cream 1 applic topical DAILYPRN PRN dry 04/13/25 04/13/25 History
skin
aspirin 81 mg tablet,delayed 81 mg feeding tube DAILY 04/13/25 04/13/25 History
release
bisacodyl 10 mg rectal suppository 10 mg TX DAILYPRN PRN constipation 04/13/25 04/13/25 History
(Dulcolax (bisacodyl))
bupropion HCl 100 mg tablet 300 mg PO DAILY g-tube 04/13/25 04/13/25 History
buspirone 30 mg tablet 30 mg feeding tube BID 04/13/25 04/13/25 History
cholestyramine (with sugar) 4 gram 4 g feeding tube BID 04/13/25 04/13/25 History
powder for susp in a packet
(Questran)
clonidine HCl 0.3 mg tablet 0.3 mg feeding tube TID 04/13/25 04/13/25 History
clopidogrel 75 mg tablet (Plavix) 75 mg feeding tube DAILY 04/13/25 04/13/25 History
colestipol 1 gram tablet (Colestid) 4 g PO BID g-tube 04/13/25 04/13/25 History
dorzolamide-timolol (PF) 2 %-0.5 % 1 drp BOTH EYES BID 04/13/25 04/13/25 History
eye drops in a dropperette
doxazosin 2 mg tablet 2 mg feeding tube DAILY 04/13/25 04/13/25 History
famotidine 40 mg/5 mL (8 mg/mL) 20 mg feeding tube HS 04/13/25 04/13/25 History
oral suspension
gemfibrozil 600 mg tablet 600 mg feeding tube BID 04/13/25 04/13/25 History
guaifenesin 200 mg/5 mL oral liquid 200 mg feeding tube Q4HPRN PRN 04/13/25 04/13/25 History
cough
hydralazine 100 mg tablet 100 mg feeding tube Q8H 04/13/25 04/13/25 History
hydroxyzine HCl 25 mg tablet 25 mg feeding tube Q6HPRN PRN 04/13/25 04/13/25 History
itching
latanoprost 0.005 % eye drops 1 drp BOTH EYES HS 04/13/25 04/13/25 History
levothyroxine 50 mcg tablet 50 mcg feeding tube DAILY 04/13/25 04/13/25 History
(Synthroid)
melatonin 10 mg tablet 10 mg feeding tube HSPRN PRN sleep 04/13/25 04/13/25 History
mirtazapine 15 mg tablet 15 mg feeding tube HS 04/13/25 04/13/25 History
nystatin 100,000 unit/gram topical 1 applic topical BID abd folds 04/13/25 04/13/25 History
powder
omeprazole 40 mg capsule,delayed 40 mg feeding tube DAILY 04/13/25 04/13/25 History
release
oxycodone 5 mg/5 mL oral solution 15 mg feeding tube Q6HPRN PRN 04/13/25 04/13/25 History
severe pains
polyethylene glycol 3350 17 gram 17 g feeding tube DAILYPRN PRN 04/13/25 04/13/25 History
oral powder packet (Miralax) constipation
pyridoxine (vitamin B6) 50 mg 50 mg feeding tube DAILY 04/13/25 04/13/25 History
tablet
scopolamine base 1 mg over 3 days 1 patch transdermal Q3D 04/13/25 04/13/25 History
transdermal patch
sennosides 8.6 mg-docusate sodium 1 tab-cap PO DAILY g-tube 04/13/25 04/13/25 History
50 mg tablet (Senna Plus)
simvastatin 40 mg tablet (Zocor) 40 mg feeding tube HS 04/13/25 04/13/25 History
sodium thiosulfate 12.5 gram/50 mL 25 g IV MOWEFR 04/13/25 04/13/25 History
(250 mg/mL) intravenous solution
sorbitol 70 % solution 30 ml PO DAILYPRN PRN constipation 04/13/25 04/13/25 History
via g-tube
sucralfate 1 gram tablet (Carafate) 1 g feeding tube BID 04/13/25 04/13/25 History
torsemide 100 mg tablet 100 mg feeding tube DAILY 04/13/25 04/13/25 History
vitamin B complex 1 tab feeding tube DAILY 04/13/25 04/13/25 History
Review of Systems
-
All other systems: Negative unless noted
Constitutional: Fatigue
EENT: No Symptoms
Respiratory: Trouble Breathing
Cardiac: No Symptoms
Abdomen/GI: No Symptoms
: No Symptoms
Musculoskeletal: No Symptoms
Skin: No Symptoms
Neurological: No Symptoms
Endocrine: No Symptoms
Hematologic/Lymphatic: No Symptoms
Physical Exam
Vital Signs
Temp Pulse Resp BP Pulse Ox
98.1 F 78 15 146/68 100
04/13/25 12:42 04/13/25 12:00 04/13/25 12:00 04/13/25 12:00 04/13/25 12:00
Lab Results
04/13/25 09:43
Troponin I 0.164 ng/ml H* 04/13/25 11:40
Tng-C-Rignmqvyoki Pept > 63900 pg/ml 04/13/25 09:43
Physical Exam
General: Well Developed, Well Nourished, No Apparent Distress and Comfortable
HEENT: Normocephalic, Anicteric and Moist Mucous Membranes
Respiratory: Crackles and Non Labored Respirations
Cardiac: S1/S2 and Peripheral Edema
Breast: Deferred by me
GI: Soft, Non Tender, Non Distended and Normal Bowel Sounds
Rectal: Deferred by Provider
Genito-urinary: No Costovertebral Tender
Musculoskeletal: No Clubbing, No Cyanosis and No Edema
Skin: Warm and Dry
Neuro: AO x 3
Hematologic/Lymphatic: No Lymphadenopathy
Psych: Calm
Impression / Plan
-
I/P: 64F with ESRD on HD, calciphylaxis, hypertension, type 2 diabetes mellitus, TIA, chronic pancreatitis, bile duct cancer, and gastroparesis with GJ tube who presented to the emergency department with a chief complaint of shortness of breath
Outpatient shop welder: None
Acute hypoxic respiratory insufficiency, in the setting of volume overload
- HD per metal tube cutter
- Wean as tolerated
Hypertensive urgency
- In the setting of volume overload
- BP improving, reassess after HD
- Medical therapy per nephrology given her ESRD
- TTE Wednesday
Volume overload
- Volume management with hemodialysis
- CXR with pulmonary congestion
- proBNP >27,000 but again she is dialysis dependent
Abnormal troponin, nonischemic myocardial injury in the setting of ESRD
- Initial troponin 0.164, trend
- She denies chest pain
- EKG without acute ischemia
ESRD, on HD, consult performed while patient was on hemodialysis
Anemia, type unknown, perhaps in the setting of chronic disease
Prior TIA, on DAPT
Gastroparesis with GJ tube
SUBJECTIVE:
As above.
Data Reviewed
-
EKG: Report Reviewed by me (Sinus rhythm, rate 103)
Radiology: Report Reviewed by me (CXR: Pulmonary edema)
Labs: Labs Reviewed by me
Old Records: Reviewed
[2025-04-13 14:48] LABS: Ferritin 936.0 ng/ml (11.1-264.0)
--- NOTE | 2025-04-13 15:02 | W.PN.NEPH.HD ---
Assessment
-
pt seen during HD
vitals stable, BP improved to 130 range
cont UF as tolerates
not on nitro, only had SL in ER
sodium thiosulfate for claciphylaxis, bandage intact of left LE
CVC functions fine
will assess extra UF if needed tomorrow
wean O2 as possible
Progress Note - Hemodialysis
-
Date of Service: April 13, 2025
Duration: 30 minutes and 3 hours
Potassium Bath: 2
Calcium Bath: 2.5
Opti-Dialyzer: 160
Ultrafiltration: Other (2.5-3kg)
Blood Flow: 400
Dialysate Flow: 600
Heparin: yesx2
EPO: [id number]
[2025-04-13 15:06] LABS: Hepatitis B Surface Antigen Negative (Negative)
[2025-04-13] MEDS: DILAUDID 0.5 MG IV ×2 (15:18→21:16)
--- NOTE | 2025-04-13 15:49 | WOUNDNOTE ---
L MEDIAL PROXIMAL LOWER LEG NEAR KNEE
--- NOTE | 2025-04-13 15:49 | WOUNDNOTE ---
L LATERAL POSTERIOR LOWER LEG
--- NOTE | 2025-04-13 15:52 | WOUNDNOTE ---
WO RN note: Patient admitted with Anemia, pulmonary edema and hypoxia.
See H&P for complete history. Lives at [facility].
PMH: 64-year-old female with a past medical history of hypertension, diabetes, ESRD on dialysis, GERD, hypothyroidism, chronic anemia, TIA, chronic pancreatitis with GJ tube who presents to the emergency department from [facility] for
evaluation of shortness of breath.
Wound Location and type/assessment: Patient admitted with: L leg wounds, Aramis at bedside reports are Calciphylaxis wounds, lateral posterior is shallow, mostly pink base. Medial leg near knee intact eschar. Wounds on legs very painful,
nurse Dionna pre medicated for pain. L medial heel with thin serosanguineous filled shallow blister, suspect healing stage 3 vs stage 2 PI. said it was down to muscle in the past and is now nearly healed. Sacrum with healing stage 3 PI, base
pelaez mixed with pink, periwound macerated. R heel intact, dry flaky skin on body.
Appetite: TF, is NPO.
Pressure redistribution devices in place: On [facility] air bed, needs to stay on air mattress if transferred. TruVue lite offloading heel boots placed on, patient states are comfortable. Foam wedge used for turning, air cushion given.
Plan: Honey gel applied to sacral wound, skin prep to periwound and same silicone foam dressing used. Nurse applied recently. Silicone foams maintained on heels. L leg dressing changed with adaptic, abd pad and bill. Nurse Villareal assisted with
care. Patient had small brown formed bm when turned, asked for bedpan. Ammonium lactate lotion already on order for dry skin. fungal powder on order for skin folds.
Will confirm orders with hospitalist and update nurse. Updated care plan and will follow as needed.
Note to case management of equipment requested for discharge: Air mattress if not already has.
Recommend follow up at wound care center upon discharge.
[2025-04-13] MEDS: SODIUM THIOSULFATE 350 GRAMS IV (16:06)
[2025-04-13] MEDS: CARAFATE SUSPENSION TUBE (16:07)
[2025-04-13] MEDS: TRANSDERM-SCOP 1 PATCH TRANSDERM (16:11)
[2025-04-13 16:42] LABS: Hemoglobin 5.8 g/dL (12.0-16.0)
[2025-04-13] MEDS: HEPARIN 3200 UNITS INTRACATH (16:44)
--- NOTE | 2025-04-13 17:07 | W.PN.UPDATE ---
Update Note
Progress Note Update
patient with drop in Hg to 5.8. No cassia evidence of bleeding. Her BP is now elevated again.
1 unit PRBC ordered now
IV Protonix gtt for now.
Per , patient has required multiple transfusions over past several months
post transfusion will repeat Hg and if inappropriate rise then will send for CT angio to see if source of bleeding found (discussed with Dr. Robbins). I want patient to be stable and resuscitated before sending off unit.
patient had never had small bowel capsule endoscopy study
She had an EGD last hospitalization, awaiting records
Iron studies show anemia chronic disease
updated
[2025-04-13] MEDS: LIPITOR 20 MG TUBE (17:26)
[2025-04-13 17:35] LABS: Glucose - Point of Care 99 mg/dl (70-99)
[2025-04-13] MEDS: ZOFRAN 4 MG IV (17:48)
[2025-04-13] MEDS: CATAPRES 0.3 MG TUBE ×2 (17:57→20:26)
[2025-04-13] MEDS: PROTONIX IV 80 MG IV (17:57)
[2025-04-13] MEDS: PROTONIX 100 IV (18:11)
[2025-04-13] MEDS: NOVOLOG FLEXPEN-LOW RESISTANCE SC (18:13)
[2025-04-13 18:40] LABS: Troponin I 0.301 ng/ml
[2025-04-13] MEDS: REMERON 15 MG TUBE (20:26)
[2025-04-13] MEDS: PEPCID neonatal/peds 10 MG TUBE (20:26)
[2025-04-13] MEDS: APRESOLINE 50 MG TUBE ×2 (20:26→22:25)
[2025-04-13] MEDS: BUSPAR 30 MG TUBE (20:26)
[2025-04-13] MEDS: CARAFATE SUSPENSION 1 GM TUBE (20:27)
[2025-04-13] MEDS: QUESTRAN 4 GRAM TUBE (20:27)
[2025-04-13] MEDS: XALATAN OPHTHALMIC SOLUTION 1 DROP BOTH EYES (20:28)
[2025-04-13] MEDS: TIMOPTIC 0.5% OPHTHALMIC SOLUTION 1 DROP BOTH EYES (20:29)
[2025-04-13] MEDS: DESENEX/MITRAZOL/ZEASORB 1 APPLIC TOPICAL (20:30)
[2025-04-13] MEDS: TRUSOPT 2% OPHTHALMIC SOLUTION 1 DROP BOTH EYES (20:30)
--- NOTE | 2025-04-13 22:36 | PTCARENOTE ---
Unit of PRBCs completed without incident. Repeat H/H sent. BP continues to be hypertensive; SBP 180-200. CAR Winslow ordered another 50mg Hydralazine on top of patient's scheduled 50mg Hydralazine. Patient on and off the bedpan multiple times. Small
BM. Negative Hemetest. Barrier cream applied to perianal area; redness and irritation present. heels elevated, pt being turned q2 hours. wound dressings intact. Patient requesting pain medication; PRN IV Dilaudid provided for 9/10 pain. Protonix gtt
infusing per the DEC. Nepro w/ carb steady TF started at 20cc/hr with 25cc/hr water flush; TF to be held at midnight for possible procedure. at bedside. Call garcia within reach.
[2025-04-13 23:10] LABS: Hemoglobin 6.7 g/dL (12.0-16.0)
--- NOTE | 2025-04-13 23:19 | PTCARENOTE ---
Hemoglobin 6.7 reported to CAR Winslow.
[2025-04-13] MEDS: APRESOLINE 5 MG IV (23:50)
[2025-04-14] VITALS (83 sets, daily range): BP systolic 101–197; BP diastolic 60–168; PULSE 88; BMI 34.7
[2025-04-14] MEDS: NOVOLOG FLEXPEN-LOW RESISTANCE SC ×4 (00:31→18:45)
--- NOTE | 2025-04-14 00:37 | PTCARENOTE ---
Second unit of blood initiated. Pt offers no complaints at 15 min check. No s/s of reaction. Infusing slowly for pt tolerance. BP 181/75 (107) HR 76. NSR on telemetry. CAR Winslow was updated on BP post IV hydralazine administration. TF on hold at
this time. Call garcia within reach. at bedside.
[2025-04-14 00:42] LABS: Glucose - Point of Care 86 mg/dl (70-99)
[2025-04-14 00:50] LABS: Troponin I 0.166 ng/ml
[2025-04-14] MEDS: APRESOLINE 10 MG IV (02:11)
--- NOTE | 2025-04-14 02:43 | W.PN.UPDATE ---
Addendum entered and electronically signed by CAR Mcpherson 04/14/25 05:35:
Pt remains with uncontrolled HTN overnight despite increased po hydralazine, additional iv hydralazine and lasix in between blood transfusion. Will add nitro gtt for better control. Likely will need another HD session today
Original Note:
Update Note
Progress Note Update
2200 HH 6.7 (appropriately went up 1 gm after 1 unit). Heme test negative per RN.
Will give one more unit to get her to her baseline hemoglobin of 7s.
[2025-04-14] MEDS: LASIX 80 MG IV (03:55)
[2025-04-14] MEDS: APRESOLINE 50 MG TUBE ×3 (03:56→20:51)
[2025-04-14] MEDS: PROTONIX 100 IV (04:02)
--- NOTE | 2025-04-14 04:09 | PTCARENOTE ---
BP 183/84 after IV Hydralazine. CAR Winslow aware. Order for 80 mg IV Lasix received. Second unit PRBC complete without incident. Pt offers no complaints. Respirations even and unlabored on CPAP. NSR on telemetry. Call garcia within reach.
[2025-04-14] MEDS: ZOFRAN 4 MG IV (06:03)
[2025-04-14] MEDS: NITROGLYCERIN PREMIX 250 IV (06:08)
[2025-04-14] MEDS: SYNTHROID 50 MCG TUBE (06:27)
[2025-04-14 06:40] LABS: Glucose - Point of Care 76 mg/dl (70-99)
--- NOTE | 2025-04-14 06:43 | PTCARENOTE ---
Patient remains hypertensive. Nitro gtt initiated per protocol; refer to worklist.
PRN zofran provided for nausea.
[2025-04-14 06:47] LABS: Hematocrit 25.5 % (37.0-47.0); Hemoglobin 8.5 g/dL (12.0-16.0); Mean Corp Hgb Conc. 33.3 g/dL (33.0-37.0); Mean Corpuscular Volume 89.8 fL (81.0-99.0); Platelet Count 269 10^3/uL (130-400); Red Cell Dist. Width 15.1 % (11.5-14.5)
[2025-04-14 06:49] LABS: Blood Urea Nitrogen 19 mg/dl (7-17); Calcium 8.7 mg/dl (8.4-10.2); Carbon Dioxide 24 mmol/L (22-30); Chloride 101 mmol/L (98-107); Estimated Creatinine Clearance 61 ml/min; Glucose 59 mg/dl (70-99); HDL Cholesterol 60 mg/dl; LDL Cholesterol, Calculated 70 mg/dl; Magnesium 2.3 mg/dl (1.6-2.3); Potassium 4.1 mmol/L (3.5-5.1); Sodium 133 mmol/L (135-145); Very Low Density Lipoprotein 13 mg/dl (0-30); eGFR 55.42
--- NOTE | 2025-04-14 08:00 | W.PN.HOSP.TC ---
Today's Communication/Plan
-
HD per renal
IV nitro gtt, wean off as able with possible HD and home med regimen; consider resuming Nifedipine on DC
IV PPI BID
hold Plavix one more day, resume tomorrow if Hg remains stable
OK to resume TF
TTE
appreciate consultants
Assessment / Plan
Assessment / Plan
Ms. 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
presents to the ER from [facility] with shortness of breath.
CXR
IMPRESSION:
Radiographic findings highly suggestive of pulmonary edema pattern with associated pleural effusions.
Hypoxic Respiratory Failure; Flash Pulmonary Edema
Heart Failure unknown EF, Acute Exacerbation
ESRD on HD
-patient has not missed HD sessions, on admission she volume overloaded on exam requiring urgent HD, FPE likely 2/2 hypertensive emergency (see below)
-admitted to IMU and status post urgent HD with fluid removal and improvement in respiratory status
-Nephrology consult appreciated
-HD per renal
-O2 support as needed
Acute on Chronic Anemia
-patient with recent hospitalization at [facility] for GI bleed where she was told she had esophageal irritation and prescribed carafate
-per , she has had multiple transfusions over past 2 months
-iron studies show inflammation
-she received 2 units PRBC overnight with more than appropriate rise
-per , she has never had capsule endoscopy; she has had multiple CT scans
-given appropriate rise with transfusion, possible initial Hg in ER was outlier and patient presented more anemic? I do not see evidence of active bleeding now
-hold Plavix one more day and resume tomorrow if no further evidence of bleeding
-patient will need follow up with outpatient physicians, and close monitoring Hg as outpatient
Non ischemic Troponin elevation in setting of hypertensive emergency and fluid overload
Troponin peaked at 0.301 - appreciate Cardiology consult
-TTE ordered
Hypertensive Emergency
Essential HTN
-nitro gtt started overnight
-continue home regimen:
Clonidine 0.3mg tube TID
Doxazosin 2mg tube daily
Hydralazine 100mg tube written as q 6h - ordered for TID here
-patient was on Nifedipine in past, not on [facility] list - will consider resuming
Recent GI Bleed with diagnosis of esophageal irritation
-continue PPI, IV BID for now
-continue SPICE MILLER [employer]AMMER MILL carafate
Hx TIA
-SPICE MILLER HAMMER MILL aspirin
-hold plavix with low Hg and recent GI Bleed
Recent hospitalizations at [facility]
-order in to obtain records
HLD
-SPICE MILLER HAMMER MILL statin
Chronic Pain, Opiate Dependence
Calciphylaxis
-SPICE MILLER HAMMER MILL Oxycodone PRN
-IV sodium thiosulfate with HD
Hypothyroidism - SPICE MILLER HAMMER MILL Synthroid
Anxiety - SPICE MILLER HAMMER MILL Buspar
Gastroparesis
Chronic Pancreatitis
-recent placement G-J tube, need to obtain outside records
DVT PPx SCD with low threshold to start hep subQ if we see Hg stable
FULL CODE - confirmed on admission
51 minutes spent on patient care
Anticipated Discharge: 24 - 48 hours
Subjective/Interval History
-
Date of Service: April 14, 2025
she is tired this morning but breathing is stable
no chest pain
no bleeding
no significant abdominal or back pain
Objective Data
-
Labs:
Laboratory Results
04/13/25 04/14/25
22:18 06:06
WBC 9.7
Hgb 6.7 L* 8.5 L D
Hct 25.5 L
Plt Count 269
Sodium 133 L
Potassium 4.1
Chloride 101
Carbon Dioxide 24
BUN 19 H
Creatinine 1.1 H
Glucose 59 L
Calcium 8.7
Vital Signs:
Vital Signs
Temp Pulse Resp BP Pulse Ox
98.2 F 82 15 186/78 100
04/14/25 07:24 04/14/25 06:40 04/14/25 06:40 04/14/25 06:40 04/14/25 06:35
I&O
04/13/25 04/14/25 04/15/25
06:59 06:59 06:59
Intake Total 850 / 850
Output Total 225 / 225
Balance 625 / 625
Review of Systems
-
History Source: Patient
All other systems: Reviewed and negative
Physical Exam
-
General: No Apparent Distress and Other (frail appearing)
HEENT: PERRLA
Respiratory: Rales
Cardiac: Regular Rhythm and S1/S2
GI: Soft and Nontender
Musculoskeletal: No Edema
Skin: Warm, Dry and Other (left leg calciphylaxis wounds )
Neuro: AO x 3
Psych: Calm
Data Reviewed
-
Diagnostic Radiology: Report Reviewed by me
Labs: Labs Reviewed by me
[2025-04-14] MEDS: CARAFATE SUSPENSION 1 GM TUBE ×2 (08:59→20:51)
[2025-04-14] MEDS: NSS (PRESERVATIVE FREE) 10 ML IV ×2 (08:59→20:53)
[2025-04-14] MEDS: PROTONIX IV 40 MG IV ×2 (08:59→20:52)
[2025-04-14] MEDS: QUESTRAN 4 GRAM TUBE ×2 (08:59→20:52)
[2025-04-14] MEDS: CATAPRES 0.3 MG TUBE ×3 (09:00→22:13)
[2025-04-14] MEDS: BUSPAR 30 MG TUBE ×2 (09:00→20:51)
[2025-04-14] MEDS: WELLBUTRIN REGULAR RELEASE 300 MG TUBE (09:00)
[2025-04-14] MEDS: CARDURA 2 MG TUBE (09:00)
[2025-04-14] MEDS: VITAMIN B-6 50 MG TUBE (09:00)
[2025-04-14] MEDS: LOW STRENGTH ASPIRIN 81 MG TUBE (09:01)
[2025-04-14] MEDS: SENOKOT-S 1 TABLET TUBE (09:01)
[2025-04-14] MEDS: DESENEX/MITRAZOL/ZEASORB 1 APPLIC TOPICAL ×2 (09:01→20:53)
[2025-04-14] MEDS: TIMOPTIC 0.5% OPHTHALMIC SOLUTION 1 DROP BOTH EYES ×2 (09:03→21:06)
[2025-04-14] MEDS: TRUSOPT 2% OPHTHALMIC SOLUTION 1 DROP BOTH EYES ×2 (09:03→21:06)
[2025-04-14 10:16] LABS: Glycohemoglobin (HgbA1c) 5.7 % (4.0-5.6)
--- NOTE | 2025-04-14 11:11 | W.PN.CD ---
Today's Communication / Plan
-
Cardiology will sign off
Impression / Plan
-
Background: 64F with ESRD on HD, calciphylaxis, hypertension, type 2 diabetes mellitus, TIA, chronic pancreatitis, bile duct cancer, and gastroparesis with GJ tube who presented to the emergency department with a chief complaint of shortness of
breath
'Patient was recently at [facility] for prolonged hospitalization where transitioned form peritoneal dialysis to HD and had GJ tube placed; then readmitted with anemia and GI Bleeding'
Outpatient instrument processing tech: None
Acute hypoxic respiratory insufficiency, in the setting of volume overload
- Severe anemia (hgb 5.8) and HTN added to her acute presentation
- Volume control via HD and BP control and improving anemia are the appropriate treatments
- HD per greens keeper
Hypertensive urgency
- per nephrology
- Echo as below
Abnormal troponin, nonischemic myocardial injury in the setting of ESRD and uncontrolled HTN
- Initial troponin 0.164 = Peak 0.301
- She denies chest pain
- EKG without acute ischemia
ESRD, on HD
Anemia, multifactorial (renal, chronic disease, recent GI bleed)
Prior TIA, typically after 3 weeks therapy is decreased to single antiplatelet agent, this patient had a recent GI bleed
Gastroparesis with GJ tube
Subjective:
No CP or dyspnea.
Echo 04/13/2025:
CONCLUSIONS
Normal biventricular size and systolic function without regional wall motion
abnormality.
Mild concentric left ventricular hypertrophy.
Stage II diastolic dysfunction suggestive of abnormal relaxation and increased
filling pressures.
Moderate left atrial enlargement.
Mitral annular calcification.
Mild to moderate mitral regurgitation.
Aortic sclerosis without stenosis.
Mild to moderate tricuspid regurgitation.
Elevated pulmonary artery pressure, estimated PASP 45-50 mmHg.
No prior study available for comparison.
Physical Exam
Vital Signs/Labs
Vital Signs
Temp Pulse Resp BP Pulse Ox
98.2 F 81 13 176/142 98
04/14/25 07:24 04/14/25 09:16 04/14/25 09:16 04/14/25 09:16 04/14/25 09:16
04/13/25 04/14/25 04/15/25
06:59 06:59 06:59
Actual Weight 100.3 kg
04/14/25 06:06
04/14/25 06:06
Magnesium 2.3 mg/dl (1.6-2.3) 04/14/25 06:06
Triglycerides 68 mg/dl (10-149) 04/14/25 06:06
LDL Cholesterol, Calc 70 mg/dl 04/14/25 06:06
VLDL Cholesterol, Calc 13 mg/dl (0-30) 04/14/25 06:06
HDL Cholesterol 60 mg/dl 04/14/25 06:06
04/13/25
09:43
Kqh-F-Fomrfjgwrvr Pept > 08428
LAB Results
04/13/25 04/13/25 04/13/25
11:40 17:00 18:04
Troponin I 0.164 H* Cancelled 0.301 H* D
04/13/25 04/14/25 04/14/25
23:00 00:12 06:04
Troponin I Cancelled 0.166 H* D Cancelled
04/14/25 04/14/25
12:04 18:04
Troponin I Cancelled Cancelled
Physical Exam
Constitutional: No acute distress
EENT: Anicteric
Cardiovascular: Rhythm & rate is regular and Pedal edema is absent
Respiratory: Respiratory effort normal and Lungs clear to auscul.
GI: Soft
Neuro/Psych: Alert
Data Reviewed
-
Date of Service: April 14, 2025
[2025-04-14] MEDS: DEXTROSE 50% SYRINGE 12.5 GRAMS IV (11:32)
[2025-04-14 11:35] LABS: Glucose - Point of Care 61 mg/dl (70-99)
--- NOTE | 2025-04-14 12:07 | W.PN.NEPH.PH ---
Today's Communication / Plan
-
UF today
attempt wean nitro gtt
Assessment/Plan
-
IMP:
Hypoxic Respiratory Failure
Heart Failure unknown EF, Acute Exacerbation
Hypertensive Emergency
Essential HTN
mild hyperkalemia
ESRD on HD at [facility] HD catheter
Hx TIA
Recent hospitalizations at [facility]
Acute on chronic anemia
h/o GIB
HLD
Chronic Pain, Opiate Dependence
Calciphylaxis
Hypothyroidism
hyponatremia
Anxiety
Gastroparesis- GJ tube
Chronic Pancreatitis
Recent disgnosis of biliary malignancy
Hypoalbuminemia
Plan:
A/w sob, HTN emergency from vol overload
tolerated HD yesterday but UF was difficult with decreasing BPs
she is on nitro gtt since last night for HTN
wean nitro gtt as able post HD
cont clonidine, cardura and may increase hydralazine dose if needed
will get isolated UF today
resume sodium thiosulfate for caliphylaxis-missed dose on 04/13, dose with HD today
renal diet and FR strictly
anemia-hb better post 2 PRBC, per family pt has frequent trasnfusion lately
back on TF-decrease FWF to 10cc/hr-may have to d.c if needed
await records
d/w pt and family at bedside
d/w primary
-
-
Date of Service: April 14, 2025
CC / HPI / ROS
-
Chief Complaint:
ESRD
History of Present Illness:
had 2 untis of PRBC post HD yesterday for hb of 5.8, now today 8.5
BP high and started on nitro gtt last night
no fever. remains on O2
Review of Systems:
c/o sob
no cp
no n/v
Labs
-
Labs:
WBC 9.7 10^3/uL (4.8-10.8) 04/14/25 06:06
RBC 2.84 10^6/uL (4.20-5.40) L 04/14/25 06:06
Hgb 8.5 g/dL (12.0-16.0) L D 04/14/25 06:06
Hct 25.5 % (37.0-47.0) L 04/14/25 06:06
Plt Count 269 10^3/uL (130-400) 04/14/25 06:06
Sodium 133 mmol/L (135-145) L 04/14/25 06:06
Potassium 4.1 mmol/L (3.5-5.1) 04/14/25 06:06
Chloride 101 mmol/L (98-107) 04/14/25 06:06
Carbon Dioxide 24 mmol/L (22-30) 04/14/25 06:06
BUN 19 mg/dl (7-17) H 04/14/25 06:06
Creatinine 1.1 mg/dL (0.6-1.0) H 04/14/25 06:06
eGFR 55.42 04/14/25 06:06
Glucose 59 mg/dl (70-99) L 04/14/25 06:06
Calcium 8.7 mg/dl (8.4-10.2) 04/14/25 06:06
Ibb-R-Zkwwzfyfgmr Pept > 45321 pg/ml 04/13/25 09:43
Albumin 2.8 g/dl (3.5-5.0) L 04/13/25 09:43
Physical Exam
-
Vital Signs:
Vital Signs
Temp Pulse Resp BP Pulse Ox
98.2 F 73 13 179/79 98
04/14/25 07:24 04/14/25 11:37 04/14/25 09:16 04/14/25 11:37 04/14/25 09:16
Cardiovascular:: Regular rate and rhythm
Respiratory:: Bilateral: Coarse
Lung Excursion:: Normal
Abdomen:: Nontender and Soft
Extremity Edema:: +2: Bilateral:
Simon Catheter: No
Other Findings::
leg in bandage for calciphylaxis
[2025-04-14 12:17] LABS: Glucose - Point of Care 77 mg/dl (70-99)
[2025-04-14] MEDS: SODIUM THIOSULFATE 350 GRAMS IV (12:49)
--- NOTE | 2025-04-14 13:41 | W.PN.NEPH.HD ---
Assessment
-
pt seen during HD /isolated UF only
wean nitro as possible
UF as tolerates
sodium thiosulfate post HD
follow h/h
next HD on Wednesday
Progress Note - Hemodialysis
-
Date of Service: April 14, 2025
Duration: 30 minutes and 2 hours
Opti-Dialyzer: 160
Ultrafiltration: Other (2-3.5kg)
Blood Flow: 350
Dialysate Flow: 600
Heparin: no
EPO: no
[2025-04-14 14:14] LABS: Glucose - Point of Care 79 mg/dl (70-99)
[2025-04-14 16:44] LABS: Glucose - Point of Care 78 mg/dl (70-99)
[2025-04-14] MEDS: LIPITOR 20 MG TUBE (16:55)
[2025-04-14 17:57] LABS: Glucose - Point of Care 78 mg/dl (70-99)
[2025-04-14] MEDS: XALATAN OPHTHALMIC SOLUTION 1 DROP BOTH EYES (22:13)
[2025-04-14] MEDS: PEPCID neonatal/peds 10 MG TUBE (22:13)
[2025-04-14] MEDS: REMERON 15 MG TUBE (22:13)
[2025-04-15] VITALS (22 sets, daily range): BP systolic 126–177; BP diastolic 68–130; PULSE 81–82; O2SAT 95–96; BMI 33.5
--- NOTE | 2025-04-15 00:10 | RESPNOTE ---
PT is ordered CPAP for HS use and uses it at home. PT wore the mask last night all night until the AM, but does not want to wear it tonight. She would rather just use the nasal O2. We will monitor resp status and place the CPAP if needed.
[2025-04-15] MEDS: NOVOLOG FLEXPEN-LOW RESISTANCE SC ×4 (00:20→18:48)
[2025-04-15 00:23] LABS: Glucose - Point of Care 89 mg/dl (70-99)
[2025-04-15 03:29] LABS: Glucose - Point of Care 101 mg/dl (70-99)
[2025-04-15] MEDS: APRESOLINE 50 MG TUBE ×3 (05:43→12:34)
[2025-04-15 05:50] LABS: Hematocrit 22.1 % (37.0-47.0); Hemoglobin 7.6 g/dL (12.0-16.0); Mean Corp Hgb Conc. 34.4 g/dL (33.0-37.0); Mean Corpuscular Volume 88.8 fL (81.0-99.0); Nucleated Red Blood Cells % 0 %; Platelet Count 285 10^3/uL (130-400); Red Cell Dist. Width 15.6 % (11.5-14.5)
[2025-04-15 06:02] LABS: Blood Urea Nitrogen 30 mg/dl (7-17); Calcium 9.4 mg/dl (8.4-10.2); Carbon Dioxide 23 mmol/L (22-30); Chloride 100 mmol/L (98-107); Estimated Creatinine Clearance 39 ml/min; Glucose 109 mg/dl (70-99); Magnesium 2.5 mg/dl (1.6-2.3); Potassium 4.5 mmol/L (3.5-5.1); Sodium 135 mmol/L (135-145); eGFR 32.87
[2025-04-15 06:04] LABS: Glucose - Point of Care 116 mg/dl (70-99)
[2025-04-15] MEDS: SYNTHROID 50 MCG TUBE (06:31)
--- NOTE | 2025-04-15 08:21 | W.PN.HOSP.TC ---
Addendum entered and electronically signed by Shahrzad Howard MD 04/15/25 17:09:
patient's UA is inflamed. In setting of suprapubic discomfort, I will start IV Ceftriaxone and monitor response.
Addendum entered and electronically signed by Shahrzad Howard MD 04/15/25 15:35:
she now has some suprapubic tenderness
will obtain UA, as patient may have UTI
she also has excoriation/fungal infection in folds of skin - unclear if this is source of pain, RN to place more anti-fungal powder over area
Addendum entered and electronically signed by hSahrzad Howard MD 04/15/25 14:47:
briefly discussed Plavix with Vascular surgery, who agrees OK to hold if significant risk anemia/bleeding
stent now over 6 months ago
discussed with patient and family
Addendum entered and electronically signed by Shahrzad Howard MD 04/15/25 11:49:
nitroglycern drip was not stopped
may be able to titrate down now that increasing Hydralazine
Addendum entered and electronically signed by Shahrzad Howard MD 04/15/25 11:47:
increase Hydralazine back to home dosing given hypertension
(was lowered when concern for possible bleed)
Original Note:
Today's Communication/Plan
-
repeat Hg this afternoon
HD per Renal
PT/OT
Plavix held
Assessment / Plan
Assessment / Plan
Ms. 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
presents to the ER from [facility] with shortness of breath.
CXR
IMPRESSION:
Radiographic findings highly suggestive of pulmonary edema pattern with associated pleural effusions.
Hypoxic Respiratory Failure; Flash Pulmonary Edema
Heart Failure unknown EF, Acute Exacerbation
ESRD on HD
-patient has not missed HD sessions, on admission she volume overloaded on exam requiring urgent HD, FPE likely 2/2 hypertensive emergency (see below)
-admitted to IMU and status post urgent HD with fluid removal and improvement in respiratory status
-s/p 2nd UF HD on 04/14; with plan for next session tomorrow 04/16
-Nephrology consult appreciated
-HD per renal
-O2 support as needed
Acute on Chronic Anemia
-patient with recent hospitalization at [facility] for GI bleed where she was told she had esophageal irritation and prescribed carafate
-per , she has had multiple transfusions over past 2 months
-iron studies show inflammation
-per , she has never had capsule endoscopy; she has had multiple CT scans
-she received 2 units PRBC overnight 04/13-04/14 with more than appropriate rise
-given appropriate rise with transfusion, possible initial Hg in ER was outlier and patient presented more anemic? I do not see evidence of active bleeding now
-04/15 Hg 7.4 (would still be appropriate rise post 2 units, suspect value yesterday morning was an outlier) - we will repeat later this morning
-patient is on PLavix for PAD, reaching out to vascular; may consider holding Plavix given risks with anemia and possibility of slow occult bleed
-patient will need follow up with outpatient physicians, and close monitoring Hg as outpatient
Non ischemic Troponin elevation in setting of hypertensive emergency and fluid overload
Troponin peaked at 0.301 - appreciate Cardiology consult
-TTE ordered
Hypertensive Emergency
Essential HTN
-nitro gtt started overnight 04/13-04/14; now off post repeat session HD
-continue home regimen:
Clonidine 0.3mg tube TID
Doxazosin 2mg tube daily
Hydralazine 100mg tube written as q 6h - ordered for TID here
-patient was on Nifedipine in past, not on [facility] list
Bile Duct Cancer
-per , patient is not a candidate for treatment at this point. They are hopeful for treatment
once acute issues resolve
Recent GI Bleed with diagnosis of esophageal irritation
-continue PPI, IV BID for now
-continue GREASE MAN carafate
Hx TIA
-GREASE MAN aspirin
Recent hospitalizations at [facility]
-order in to obtain records
HLD
-GREASE MAN statin
Chronic Pain, Opiate Dependence
Calciphylaxis
-GREASE MAN Oxycodone PRN
-IV sodium thiosulfate with HD
Hypothyroidism - GREASE MAN Synthroid
Anxiety - GREASE MAN Buspar
Gastroparesis
Chronic Pancreatitis
-recent placement G-J tube, need to obtain outside records
DVT PPx SCD
FULL CODE - confirmed on admission
51 minutes spent on patient care
Anticipated Discharge: 24 - 48 hours
Subjective/Interval History
-
Date of Service: April 15, 2025
no active complaints
she denies shortness of breath
she denies abdominal pain
Objective Data
-
Labs:
Laboratory Results
04/15/25 04/15/25
05:20 11:00
WBC 9.3
Hgb 7.6 L Pending
Hct 22.1 L
Plt Count 285
Sodium 135
Potassium 4.5
Chloride 100
Carbon Dioxide 23
BUN 30 H
Creatinine 1.7 H
Glucose 109 H
Calcium 9.4
Vital Signs:
Vital Signs
Temp Pulse Resp BP Pulse Ox
98.1 F 80 15 161/96 99
04/15/25 03:28 04/15/25 06:30 04/15/25 06:30 04/15/25 06:00 04/15/25 06:30
I&O
04/14/25 04/15/25 04/16/25
06:59 06:59 06:59
Intake Total 850 / 850
Output Total 225 / 225
Balance 625 / 625
Review of Systems
-
History Source: Patient
All other systems: Reviewed and negative
Physical Exam
-
General: No Apparent Distress and Appears Chronically Ill
HEENT: PERRLA and Other (pale conjunctiva )
Respiratory: Decreased Breath Sounds
Cardiac: Regular Rhythm and S1/S2
GI: Soft and Nontender
Musculoskeletal: No Edema
Skin: Warm, Dry and Other (left leg calciphylaxis wounds )
Neuro: AO x 3
Psych: Calm
Data Reviewed
-
Diagnostic Radiology: Report Reviewed by me
Labs: Labs Reviewed by me
[2025-04-15] MEDS: ROXICODONE ORAL SOLUTION 15 MG TUBE (08:46)
[2025-04-15] MEDS: WELLBUTRIN REGULAR RELEASE 300 MG TUBE (08:47)
[2025-04-15] MEDS: DESENEX/MITRAZOL/ZEASORB 1 APPLIC TOPICAL ×2 (08:48→22:03)
[2025-04-15] MEDS: CATAPRES 0.3 MG TUBE ×3 (08:48→22:01)
[2025-04-15] MEDS: LOW STRENGTH ASPIRIN 81 MG TUBE (08:48)
[2025-04-15] MEDS: BUSPAR 30 MG TUBE ×2 (08:49→22:02)
[2025-04-15] MEDS: SENOKOT-S 1 TABLET TUBE (08:49)
[2025-04-15] MEDS: VITAMIN B-6 50 MG TUBE (08:49)
[2025-04-15] MEDS: NSS (PRESERVATIVE FREE) 10 ML IV ×2 (08:49→22:02)
[2025-04-15] MEDS: PROTONIX IV 40 MG IV ×2 (08:49→22:02)
[2025-04-15] MEDS: CARDURA 2 MG TUBE (08:49)
[2025-04-15] MEDS: CARAFATE SUSPENSION 1 GM TUBE ×2 (08:49→22:01)
[2025-04-15] MEDS: QUESTRAN 4 GRAM TUBE ×2 (08:50→22:03)
[2025-04-15] MEDS: TIMOPTIC 0.5% OPHTHALMIC SOLUTION 1 DROP BOTH EYES ×2 (08:50→22:03)
[2025-04-15] MEDS: TRUSOPT 2% OPHTHALMIC SOLUTION 1 DROP BOTH EYES ×2 (08:50→22:04)
[2025-04-15] MEDS: NITROGLYCERIN PREMIX 250 IV (11:22)
[2025-04-15 12:06] LABS: Hemoglobin 7.6 g/dL (12.0-16.0)
--- NOTE | 2025-04-15 12:12 | W.PN.NEPH.PH ---
Today's Communication / Plan
-
HD tomorrow
add procardia
attempt wean nitro gtt
check ARR, renal duplex
check UA as she c/o supra pubic pain
resume Torsemide
Assessment/Plan
-
IMP:
Hypoxic Respiratory Failure
Heart Failure unknown EF, Acute Exacerbation
Hypertensive Emergency
Essential HTN
mild hyperkalemia
ESRD on HD at [place] MWF, [facility] IJ HD catheter
Hx TIA
Recent hospitalizations at [facility]
Acute on chronic anemia
h/o GIB
HLD
Chronic Pain, Opiate Dependence
Calciphylaxis
Hypothyroidism
hyponatremia
Anxiety
Gastroparesis- GJ tube
Chronic Pancreatitis
Recent diagnosis of biliary malignancy
Hypoalbuminemia
Plan:
A/w sob, HTN emergency from vol overload
tolerated extra UF yesterday , wt is down and off O2 , HD tomorrow
but remains on nitro gtt
agree increasing back hydralzine
will add procardia 30mg and attempt to wean nitro
also check ARR, renal duplex to r/o JASSON
echo noted mild LVF, DDII, pulm HTN
cont clonidine, cardura , resume Torsemide
sodium thiosulfate for caliphylaxis-with HD
renal diet and FR strictly
anemia-hb decreasing post 2 PRBC, per family pt has frequent trasnfusion lately
on TF-decrease FWF to 10cc/hr-may have to d.c if needed
check UA as she c/o supra pubic pain, also check bladder scan
await records
d/w pt and family at bedside
-
-
Date of Service: April 15, 2025
CC / HPI / ROS
-
Chief Complaint:
ESRD
History of Present Illness:
hb today 7.6 down from 8.5
BP high remains on nitro gtt last night
no fever.
Review of Systems:
improved sob off O2
no cp
has nausea
lower abd pain
Labs
-
Labs:
WBC 9.3 10^3/uL (4.8-10.8) 04/15/25 05:20
RBC 2.49 10^6/uL (4.20-5.40) L 04/15/25 05:20
Hgb 7.6 g/dL (12.0-16.0) L 04/15/25 11:54
Hct 22.1 % (37.0-47.0) L 04/15/25 05:20
Plt Count 285 10^3/uL (130-400) 04/15/25 05:20
Sodium 135 mmol/L (135-145) 04/15/25 05:20
Potassium 4.5 mmol/L (3.5-5.1) 04/15/25 05:20
Chloride 100 mmol/L (98-107) 04/15/25 05:20
Carbon Dioxide 23 mmol/L (22-30) 04/15/25 05:20
BUN 30 mg/dl (7-17) H 04/15/25 05:20
Creatinine 1.7 mg/dL (0.6-1.0) H 04/15/25 05:20
eGFR 32.87 04/15/25 05:20
Glucose 109 mg/dl (70-99) H 04/15/25 05:20
Calcium 9.4 mg/dl (8.4-10.2) 04/15/25 05:20
Tgv-C-Njqmhbmjnjf Pept > 81555 pg/ml 04/13/25 09:43
Albumin 2.8 g/dl (3.5-5.0) L 04/13/25 09:43
Physical Exam
-
Vital Signs:
Vital Signs
Temp Pulse Resp BP Pulse Ox
98.8 F 80 9 170/87 93
04/15/25 11:05 04/15/25 10:32 04/15/25 10:32 04/15/25 10:32 04/15/25 10:32
Cardiovascular:: Regular rate and rhythm
Respiratory:: Bilateral: Coarse
Lung Excursion:: Normal
Abdomen:: Soft and Tender (mild TTP-lower abd )
Extremity Edema:: +1: Bilateral:
Simon Catheter: No
Other Findings::
leg in bandage for calciphylaxis
[2025-04-15] MEDS: DEMADEX 100 MG PO (12:34)
[2025-04-15 12:45] LABS: Glucose - Point of Care 116 mg/dl (70-99)
[2025-04-15] MEDS: PROCARDIA XL (EXTENDED RELEASE) 30 MG PO (13:44)
[2025-04-15] MEDS: DILAUDID 0.5 MG IV (14:37)
[2025-04-15 16:46] LABS: Urine Character Slightly Cloudy (Clear)
[2025-04-15 16:54] LABS: Urine White Cell 30-40 /HPF (0-5)
[2025-04-15] MEDS: LIPITOR 20 MG TUBE (17:25)
[2025-04-15] MEDS: STERILE WATER FOR INJECTION 10 ML IV (18:21)
[2025-04-15] MEDS: ROCEPHIN 1000 MG IV (18:22)
--- NOTE | 2025-04-15 18:56 | PTCARENOTE ---
tube feed rate decreased to 20mL/hr. Dr. Howard notified via tiger text. Pt complaining of nausea and vomiting.
[2025-04-15] MEDS: REMERON 15 MG TUBE (22:01)
[2025-04-15] MEDS: APRESOLINE 100 MG TUBE (22:02)
[2025-04-15] MEDS: PEPCID neonatal/peds 10 MG TUBE (22:03)
[2025-04-15] MEDS: XALATAN OPHTHALMIC SOLUTION 1 DROP BOTH EYES (22:04)
--- NOTE | 2025-04-15 23:23 | PTCARENOTE ---
Patient pleasant, alert and forgetful. CHG done. All linens changed. Meds given. at bedside. Denies pain. Reports abd/stomach feels slightly better than earlier. Patient with nausea and vomiting after turning and repositioning; unable to
swallow. Nausea resolved on its own. PRN zofran does not work per patient. TF @ a decreased rate of 20cc/hr. G/J tube site with small healing abrasion. Heel dressings changed; heels in green EHOB boots. Sacrum dressing intact; changed this morning.
LLE wound dressing intact; changed earlier today. Repositioning with waffle cushion. Chronic fungal rash present to bilateral lower legs/feet. Abd fold with MASD and split skin. Right IJ HD catheter dressing intact. LUE midline dressing with small
amount of old drainage. Nitro gtt infusing; refer to work-list. Goal of SBP <160s; unable to titrate down at this time.
Call garcia and tray table within reach.
[2025-04-15 23:51] LABS: Glucose - Point of Care 139 mg/dl (70-99)
[2025-04-16] VITALS (31 sets, daily range): BP systolic 109–169; BP diastolic 47–104; BMI 33.5
[2025-04-16] MEDS: NOVOLOG FLEXPEN-LOW RESISTANCE SC ×3 (00:01→23:56)
[2025-04-16] MEDS: APRESOLINE 100 MG TUBE ×2 (05:41→21:24)
[2025-04-16 05:56] LABS: Hematocrit 21.9 % (37.0-47.0); Hemoglobin 7.4 g/dL (12.0-16.0); Mean Corp Hgb Conc. 33.8 g/dL (33.0-37.0); Mean Corpuscular Volume 90.5 fL (81.0-99.0); Platelet Count 288 10^3/uL (130-400); Red Cell Dist. Width 15.6 % (11.5-14.5)
[2025-04-16 06:13] LABS: Blood Urea Nitrogen 39 mg/dl (7-17); Calcium 9.8 mg/dl (8.4-10.2); Carbon Dioxide 22 mmol/L (22-30); Chloride 99 mmol/L (98-107); Estimated Creatinine Clearance 29 ml/min; Glucose 152 mg/dl (70-99); Potassium 4.5 mmol/L (3.5-5.1); Sodium 134 mmol/L (135-145); eGFR 22.87
[2025-04-16] MEDS: SYNTHROID 50 MCG TUBE (06:14)
[2025-04-16 06:37] LABS: Glucose - Point of Care 167 mg/dl (70-99)
--- NOTE | 2025-04-16 07:30 | PTCARENOTE ---
Pt AAOx3 with some nausea and spitting up secretions. no vomit. Zofran given, meds via peg tube.
[2025-04-16] MEDS: NOVOLOG FLEXPEN-LOW RESISTANCE 1 UNITS SC ×2 (07:45→12:20)
[2025-04-16] MEDS: PROTONIX IV 40 MG IV ×2 (07:47→21:26)
[2025-04-16] MEDS: ZOFRAN 4 MG IV ×2 (07:48→22:39)
[2025-04-16] MEDS: NSS (PRESERVATIVE FREE) 10 ML IV ×2 (07:48→21:26)
[2025-04-16] MEDS: DEMADEX 100 MG PO (07:51)
[2025-04-16] MEDS: BUSPAR 30 MG TUBE ×2 (07:52→21:24)
[2025-04-16] MEDS: VITAMIN B-6 50 MG TUBE (07:53)
[2025-04-16] MEDS: CATAPRES 0.3 MG TUBE ×3 (07:53→21:27)
[2025-04-16] MEDS: CARDURA 2 MG TUBE (07:54)
[2025-04-16] MEDS: WELLBUTRIN REGULAR RELEASE 300 MG TUBE (07:54)
[2025-04-16] MEDS: CARAFATE SUSPENSION 1 GM TUBE ×2 (07:54→21:24)
[2025-04-16] MEDS: LOW STRENGTH ASPIRIN 81 MG TUBE (07:55)
[2025-04-16] MEDS: PROCARDIA XL (EXTENDED RELEASE) 30 MG PO (07:55)
[2025-04-16] MEDS: DESENEX/MITRAZOL/ZEASORB 1 APPLIC TOPICAL ×2 (07:56→21:23)
[2025-04-16] MEDS: SENOKOT-S 1 TABLET TUBE (07:56)
[2025-04-16] MEDS: QUESTRAN 4 GRAM TUBE ×2 (07:57→22:37)
[2025-04-16] MEDS: TRUSOPT 2% OPHTHALMIC SOLUTION 1 DROP BOTH EYES ×2 (08:07→21:28)
[2025-04-16] MEDS: TIMOPTIC 0.5% OPHTHALMIC SOLUTION 1 DROP BOTH EYES ×2 (08:07→21:27)
[2025-04-16] MEDS: APRESOLINE TUBE (12:05)
[2025-04-16 12:09] LABS: Glucose - Point of Care 152 mg/dl (70-99)
--- NOTE | 2025-04-16 12:41 | W.PN.NEPH.PH ---
Today's Communication / Plan
-
Dialysis
Assessment/Plan
-
IMP:
Hypoxic Respiratory Failure
Heart Failure unknown EF, Acute Exacerbation
Hypertensive Emergency
Essential HTN
mild hyperkalemia
ESRD on HD at [place] MWF, righ IJ HD catheter
Hx TIA
Recent hospitalizations at [facility]
Acute on chronic anemia
h/o GIB
HLD
Chronic Pain, Opiate Dependence
Calciphylaxis
Hypothyroidism
hyponatremia
Anxiety
Gastroparesis- GJ tube
Chronic Pancreatitis
Recent diagnosis of biliary malignancy
Hypoalbuminemia
Plan:
A/w sob, HTN emergency from vol overload/previously on peritoneal dialysis changed to hemodialysis status post foot infection at [facility] and has been at [facility]
renal duplex was ordered r/o JASSON on initial consultation still pending
echo noted mild LVF, DDII, pulm HTN
sodium thiosulfate for caliphylaxis-with HD
renal diet and FR strictly
Epogen
on TF-decrease FWF to 10cc/hr
Discussed with at bedside
Dialysis today
33 minutes critical care time
-
-
Date of Service: April 16, 2025
CC / HPI / ROS
-
Chief Complaint:
ESRD
History of Present Illness:
hb today 7.6 down from 8.5
BP high remains on nitro gtt last night
no fever.
Review of Systems:
improved sob off O2
no cp
Labs
-
Labs:
WBC 10.4 10^3/uL (4.8-10.8) 04/16/25 05:35
RBC 2.42 10^6/uL (4.20-5.40) L 04/16/25 05:35
Hgb 7.4 g/dL (12.0-16.0) L 04/16/25 05:35
Hct 21.9 % (37.0-47.0) L 04/16/25 05:35
Plt Count 288 10^3/uL (130-400) 04/16/25 05:35
Sodium 134 mmol/L (135-145) L 04/16/25 05:35
Potassium 4.5 mmol/L (3.5-5.1) 04/16/25 05:35
Chloride 99 mmol/L (98-107) 04/16/25 05:35
Carbon Dioxide 22 mmol/L (22-30) 04/16/25 05:35
BUN 39 mg/dl (7-17) H 04/16/25 05:35
Creatinine 2.3 mg/dL (0.6-1.0) H 04/16/25 05:35
eGFR 22.87 04/16/25 05:35
Glucose 152 mg/dl (70-99) H 04/16/25 05:35
Calcium 9.8 mg/dl (8.4-10.2) 04/16/25 05:35
Mfd-Z-Kztbfthdkta Pept > 27589 pg/ml 04/13/25 09:43
Albumin 2.8 g/dl (3.5-5.0) L 04/13/25 09:43
Physical Exam
-
Vital Signs:
Vital Signs
Temp Pulse Resp BP Pulse Ox
97.9 F 77 19 126/104 95
04/16/25 11:20 04/16/25 10:00 04/16/25 10:00 04/16/25 10:00 04/16/25 10:00
Cardiovascular:: Regular rate and rhythm
Respiratory:: Bilateral: Coarse
Lung Excursion:: Normal
Abdomen:: Soft and Tender (mild TTP-lower abd )
Extremity Edema:: +1: Bilateral:
Simon Catheter: No
Other Findings::
leg in bandage for calciphylaxis
--- NOTE | 2025-04-16 12:44 | W.PN.NEPH.HD ---
Progress Note - Hemodialysis
-
Date of Service: April 16, 2025
Duration: 30 minutes and 2 hours
Opti-Dialyzer: 160
Ultrafiltration: Other (2-3.5kg)
Blood Flow: 350
Dialysate Flow: 600
Heparin: no
EPO: no
--- NOTE | 2025-04-16 12:45 | W.PN.HOSP.TC ---
Today's Communication/Plan
-
Monitor vital signs see plan
Follow urine culture
Continue with ceftriaxone
wean nitro drip
HD per nephrology
Assessment / Plan
Assessment / Plan
Ms. 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
presents to the ER from [facility] with shortness of breath.
CXR
IMPRESSION:
Radiographic findings highly suggestive of pulmonary edema pattern with associated pleural effusions.
Hypoxic Respiratory Failure; Flash Pulmonary Edema
Heart Failure unknown EF, Acute Exacerbation
ESRD on HD
-patient has not missed HD sessions, on admission she volume overloaded on exam requiring urgent HD, FPE likely 2/2 hypertensive emergency (see below)
-s/p 2nd UF HD on 04/14; with plan for next session 04/16
-Nephrology consult appreciated
-HD per renal
-O2 support as needed
UTI
Continue with ceftriaxone
Follow urine culture
Acute on Chronic Anemia
-patient with recent hospitalization at [facility] for GI bleed where she was told she had esophageal irritation and prescribed carafate
-per , she has had multiple transfusions over past 2 months
-iron studies show inflammation
-per , she has never had capsule endoscopy; she has had multiple CT scans
-she received 2 units PRBC overnight 04/13-04/14 with more than appropriate rise
-given appropriate rise with transfusion, possible initial Hg in ER was outlier and patient presented more anemic? I do not see evidence of active bleeding now
Continue to monitor hemoglobin
-patient is on PLavix for PAD, per vascular benefits are with low risk. Okay to discontinue Plavix
-patient will need follow up with outpatient physicians, and close monitoring Hg as outpatient
Non ischemic Troponin elevation in setting of hypertensive emergency and fluid overload
Troponin peaked at 0.301 - appreciate Cardiology consult
- Echo 04/13 with stage II diastolic dysfunction, aortic sclerosis without stenosis, elevated PASP
Hypertensive Emergency
Essential HTN
- Wean nitro drip
-continue home regimen:
Clonidine 0.3mg tube TID
Doxazosin 2mg tube daily
Hydralazine 100mg tube written as q 6h - ordered for TID here
-patient was on Nifedipine in past, not on [facility] list
Renal artery ultrasound pending
Bile Duct Cancer
-per , patient is not a candidate for treatment at this point. They are hopeful for treatment
once acute issues resolve
Recent GI Bleed with diagnosis of esophageal irritation
-continue PPI, IV BID for now
-continue WIRE ANNEALER carafate
Hx TIA
-WIRE ANNEALER aspirin
Recent hospitalizations at [facility]
-order in to obtain records
HLD
-WIRE ANNEALER statin
Chronic Pain, Opiate Dependence
Calciphylaxis
-WIRE ANNEALER Oxycodone PRN
-IV sodium thiosulfate with HD
Hypothyroidism - WIRE ANNEALER Synthroid
Anxiety - WIRE ANNEALER Buspar
Gastroparesis
Chronic Pancreatitis
-recent placement G-J tube, need to obtain outside records
DVT PPx SCD
FULL CODE - confirmed on admission
I spent a total of 53 minutes with the patient or on the floor. More than 50% of this time involved counseling and coordination of care.
General: No Apparent Distress and Appears Chronically Ill
HEENT: PERRLA and Other (pale conjunctiva )
Respiratory: Decreased Breath Sounds
Cardiac: Regular Rhythm and S1/S2
GI: Soft and Nontender
Musculoskeletal: No Edema
Skin: Warm, Dry and Other (left leg calciphylaxis wounds )
Neuro: AO x 3
Psych: Calm
Anticipated Discharge: > 48 hours
Subjective/Interval History
-
Date of Service: April 16, 2025
Denies nausea
Objective Data
-
Labs:
Laboratory Results
04/16/25
05:35
WBC 10.4
Hgb 7.4 L
Hct 21.9 L
Plt Count 288
Sodium 134 L
Potassium 4.5
Chloride 99
Carbon Dioxide 22
BUN 39 H
Creatinine 2.3 H
Glucose 152 H
Calcium 9.8
Vital Signs:
Vital Signs
Temp Pulse Resp BP Pulse Ox
97.9 F 77 19 126/104 95
04/16/25 11:20 04/16/25 10:00 04/16/25 10:00 04/16/25 10:00 04/16/25 10:00
I&O
04/15/25 04/16/25 04/17/25
06:59 06:59 06:59
Output Total 490 / 490
Balance -490 / -490
[2025-04-16] MEDS: RETACRIT 10000 UNITS IV (13:12)
--- NOTE | 2025-04-16 14:11 | CM ---
Addendum entered by [facility] 04/16/25 15:12:
Call from admissions [facility]/Yaima
She has accepted pt for admission
Will transport pt to outpt HD via stretcher
She will provide NPIs in Care Port
Call to [facility] in [facility] [phone]
Pt previously received outpt HD there
Has been closed to clinic so new referral is needed
Referral sent to [facility] via Care Port
Discharge Disposition- [facility] in [facility] with new outpt HD at [facility]
Addendum entered by [facility] 04/16/25 14:48:
Urgent call from spouse
He noted [facility] now not accepting pt back for admission as he will not private pay nor complete MA shana
He is requesting referral to SNF near [facility]
He noted he has already spoke with admissions/Yaima [phone]
Referral sent in Care Port and pending
VM left for admissions
Original Note:
CM reviewed chart and ADC >48 hours
Return SNF referral sent via Care Port to [facility]
Pt continues to receive bedside HD, she was on a MWF schedule at [facility]
Per admissions, she will require auth for SNF return
PT/OT following
[facility]
Mario Peres
Discharge Disposition- return to [facility], will need auth per SNF
[2025-04-16] MEDS: SODIUM THIOSULFATE 350 GRAMS IV (14:34)
--- NOTE | 2025-04-16 14:55 | PTCARENOTE ---
Pt on DH BP 138 sytolic NTG gtt titrated down as per order
[2025-04-16] MEDS: TRANSDERM-SCOP 1 PATCH TRANSDERM (15:09)
[2025-04-16] MEDS: LIPITOR 20 MG TUBE ×2 (17:06)
[2025-04-16] MEDS: STERILE WATER FOR INJECTION 10 ML IV (17:07)
[2025-04-16] MEDS: ROCEPHIN 1000 MG IV (17:07)
--- NOTE | 2025-04-16 17:29 | PTCARENOTE ---
Pt from [address] [place] [address] minimally responsive. at bedside.
[2025-04-16 18:08] LABS: Glucose - Point of Care 112 mg/dl (70-99)
[2025-04-16] MEDS: REMERON 15 MG TUBE (21:27)
[2025-04-16] MEDS: QUESTRAN TUBE (21:27)
[2025-04-16] MEDS: PEPCID neonatal/peds 10 MG TUBE (21:27)
[2025-04-16] MEDS: XALATAN OPHTHALMIC SOLUTION 1 DROP BOTH EYES (21:28)
[2025-04-16 23:59] LABS: Glucose - Point of Care 115 mg/dl (70-99)
[2025-04-17] VITALS (29 sets, daily range): BP systolic 149–187; BP diastolic 52–90; PULSE 75; O2SAT 99; BMI 32.8
--- NOTE | 2025-04-17 00:41 | PTCARENOTE ---
Assumed care of Pt from day RN. Pt had complaint of nausea with small amount of emesis. Zofran given, see dec. TF held until nauseas stops.
[2025-04-17] MEDS: APRESOLINE 10 MG IV ×4 (01:17→23:22)
--- NOTE | 2025-04-17 01:31 | PTCARENOTE ---
VAT to bed side to check blood around midline site. VAT informed RN she was informed about bleeding from day shift. Pt having nausea and emesis, TF paused and COMPUTER ANALYST made aware in hope for nausea medication. Pt hypertensive, prn medication given with
some positive affect.
[2025-04-17] MEDS: COMPAZINE 5 MG IV (03:46)
[2025-04-17] MEDS: APRESOLINE 100 MG TUBE ×3 (04:03→21:27)
[2025-04-17 04:48] LABS: Hematocrit 24.5 % (37.0-47.0); Hemoglobin 8.2 g/dL (12.0-16.0); Mean Corp Hgb Conc. 33.5 g/dL (33.0-37.0); Mean Corpuscular Volume 91.1 fL (81.0-99.0); Nucleated Red Blood Cells % 0 %; Platelet Count 290 10^3/uL (130-400); Red Cell Dist. Width 15.9 % (11.5-14.5)
[2025-04-17 05:06] LABS: Blood Urea Nitrogen 22 mg/dl (7-17); Calcium 9.1 mg/dl (8.4-10.2); Carbon Dioxide 26 mmol/L (22-30); Chloride 103 mmol/L (98-107); Estimated Creatinine Clearance 44 ml/min; Glucose 110 mg/dl (70-99); Potassium 3.9 mmol/L (3.5-5.1); Sodium 136 mmol/L (135-145); eGFR 38.20
[2025-04-17] MEDS: SYNTHROID 50 MCG TUBE (05:29)
[2025-04-17] MEDS: NOVOLOG FLEXPEN-LOW RESISTANCE SC ×4 (05:43→23:23)
[2025-04-17 05:49] LABS: Glucose - Point of Care 112 mg/dl (70-99)
--- NOTE | 2025-04-17 07:55 | W.PN.NEPH.PH ---
Today's Communication / Plan
-
Hd tomorrow
continue to reduce EDW for hypertension and respiratory distress
Assessment/Plan
-
IMP:
Hypoxic Respiratory Failure
Heart Failure unknown EF, Acute Exacerbation
Hypertensive Emergency
Essential HTN
mild hyperkalemia
ESRD on HD at [place] MWF, righ IJ HD catheter
Hx TIA
Recent hospitalizations at [facility]
Acute on chronic anemia
h/o GIB
HLD
Chronic Pain, Opiate Dependence
Calciphylaxis
Hypothyroidism
hyponatremia
Anxiety
Gastroparesis- GJ tube
Chronic Pancreatitis
Recent diagnosis of biliary malignancy
Hypoalbuminemia
Plan:
A/w sob, HTN emergency from vol overload/previously on peritoneal dialysis changed to hemodialysis status post foot infection at [facility] and has been at [facility]
renal duplex was ordered r/o JASSON on initial consultation still pending
echo noted mild LVF, DDII, pulm HTN
sodium thiosulfate for caliphylaxis-with HD
renal diet and FR strictly
Epogen
on TF-decrease FWF to 10cc/hr
Dialysis tomorrow, orders provided
-
-
Date of Service: April 17, 2025
CC / HPI / ROS
-
Chief Complaint:
ESRD
History of Present Illness:
Hemoglobin 8.2
Now off nitroglycerin drip,bpremains high
no fever.
Review of Systems:
improved sob
no cp
Weight is down
Labs
-
Labs:
WBC 12.5 10^3/uL (4.8-10.8) H 04/17/25 03:39
RBC 2.69 10^6/uL (4.20-5.40) L 04/17/25 03:39
Hgb 8.2 g/dL (12.0-16.0) L 04/17/25 03:39
Hct 24.5 % (37.0-47.0) L 04/17/25 03:39
Plt Count 290 10^3/uL (130-400) 04/17/25 03:39
Sodium 136 mmol/L (135-145) 04/17/25 03:39
Potassium 3.9 mmol/L (3.5-5.1) 04/17/25 03:39
Chloride 103 mmol/L (98-107) 04/17/25 03:39
Carbon Dioxide 26 mmol/L (22-30) 04/17/25 03:39
BUN 22 mg/dl (7-17) H 04/17/25 03:39
Creatinine 1.5 mg/dL (0.6-1.0) H 04/17/25 03:39
eGFR 38.20 04/17/25 03:39
Glucose 110 mg/dl (70-99) H 04/17/25 03:39
Calcium 9.1 mg/dl (8.4-10.2) 04/17/25 03:39
Vsr-T-Innhiidrkrt Pept > 31098 pg/ml 04/13/25 09:43
Albumin 2.8 g/dl (3.5-5.0) L 04/13/25 09:43
Physical Exam
-
Vital Signs:
Vital Signs
Temp Pulse Resp BP Pulse Ox
98.1 F 74 19 170/68 97
04/17/25 04:02 04/17/25 07:00 04/17/25 07:00 04/17/25 07:00 04/17/25 07:00
Cardiovascular:: Regular rate and rhythm
Respiratory:: Bilateral: Coarse
Lung Excursion:: Normal
Abdomen:: Soft and Tender (mild TTP-lower abd )
Extremity Edema:: +1: Bilateral:
Simon Catheter: No
Other Findings::
leg in bandage for calciphylaxis
[2025-04-17] MEDS: CATAPRES 0.3 MG TUBE ×3 (08:22→21:39)
[2025-04-17] MEDS: WELLBUTRIN REGULAR RELEASE 300 MG TUBE (08:22)
[2025-04-17] MEDS: QUESTRAN 4 GRAM TUBE ×2 (08:22→22:03)
[2025-04-17] MEDS: BUSPAR 30 MG TUBE ×2 (08:22→21:26)
[2025-04-17] MEDS: CARAFATE SUSPENSION 1 GM TUBE ×2 (08:22→21:27)
[2025-04-17] MEDS: NORVASC 5 MG TUBE (08:23)
[2025-04-17] MEDS: VITAMIN B-6 50 MG TUBE (08:23)
[2025-04-17] MEDS: PROTONIX IV 40 MG IV ×2 (08:23→21:29)
[2025-04-17] MEDS: NSS (PRESERVATIVE FREE) 10 ML IV ×2 (08:23→21:29)
[2025-04-17] MEDS: LOW STRENGTH ASPIRIN 81 MG TUBE (08:23)
[2025-04-17] MEDS: SENOKOT-S 1 TABLET TUBE (08:23)
[2025-04-17] MEDS: DEMADEX 100 MG TUBE (08:23)
[2025-04-17] MEDS: TRUSOPT 2% OPHTHALMIC SOLUTION 1 DROP BOTH EYES ×2 (08:24→21:30)
[2025-04-17] MEDS: TIMOPTIC 0.5% OPHTHALMIC SOLUTION 1 DROP BOTH EYES ×2 (08:24→21:30)
[2025-04-17] MEDS: DESENEX/MITRAZOL/ZEASORB 1 APPLIC TOPICAL ×2 (08:25→21:27)
[2025-04-17] MEDS: CARDURA 2 MG TUBE (08:31)
--- NOTE | 2025-04-17 10:01 | CM ---
Addendum entered by Buffy Caldera RN 04/17/25 15:30:
Clinical Info faxed to Peter via Active Fax.
Hep B Core AB faxed to [facility].
Plan [facility] with [facility] Outpt HD once insurance approves and medically ready.
Original Note:
Patient from [facility] with with Hx ESRD on HD, gastroparesis with GJ tube, bile duct cancer with Dx Hypoxic Respiratory Failure, Flash Pulmonary Edema, Heart Failure, UTI, Anemia, Hypertensive Emergency. O2 2L. Receiving IV Abx. Nepro tube
feeds. PT & OT; requires assist of 2, recommend skilled rehab. Per nurse; forgetful.
Message with Dr Dailey; may be ready for d/c in 1-2 days if nephrology agrees.
Received phone call from [facility] (ph [phone], fax [phone]); she requested CXR (added to [facility]) and Hep B Core AB (request to Dr Dailey- ordered). Offered HD schedule choices - selected MWF 6a-6:45am start time.
[facility] - completed and faxed back. The assigned Coordinator is Ricarda [phone].
Spoke with Peter Davila; requested insurance auth for [facility]. Pending Auth # [id number]. Request to send clinical info to fax [phone]- info to be sent when updated therapy notes are available.
Spoke with Trena Erwin [facility] (fax [phone]); provided update that SNF auth was been started for anticipated d/c in the few days. Yaima confirms preferred HD Chair MWF 6a-6:45am start time.
Spoke with patient's LION Self; provided update about d/c plans for [facility] and [facility]. Informed Aramis that [facility] requested he assist patient in signing her consents for Outpt HD. expressed
frustration about patient needing to be here instead of closer to home, having to drive down here, and having inconsistency with patient's medical team instead of [facility] doctors who are more familiar with her- attempted to provide reassurance that
hopefully soon patient will be backend developer to home. He will be here today.
Plan fax clinicals to [facility] once updated PT/OT notes are available.
Plan fax Hep B Core AB to [facility] once available.
Plan [facility] with [facility] Outpt HD when medically ready.
--- NOTE | 2025-04-17 10:42 | PN.CDI ---
CDI
- -
CDI:
Physician Documentation Request
Admit Date: 04/13/25 11:17
Dear Doctor Asim,
Patient admitted for heart failure exacerbation.
04/13 Echo Report: 'Normal biventricular size and systolic function without regional wall motion abnormality...LV ejection fraction is 52% by volumetric assessment.'
04/16 Hospitalist PN: 'Heart Failure unknown EF, Acute Exacerbation'
Please provide further specificity regarding the most likely type and acuity of CHF you are evaluating, treating or monitoring.
Systolic
Diastolic
Combined systolic/diastolic
Other
Use of terms such as suspected, likely, concern for, or probable (associated with a specific diagnosis that is being evaluated, monitored, or treated as if it exists) are acceptable and can be coded in the inpatient setting, when documented at the
time of discharge.
Thank you,
Mary Perry RN, BSN
CDI Specialist
Available via [place] text
Please use your independent medical judgment in providing your response.
--- NOTE | 2025-04-17 11:06 | PN.CDI ---
CDI
- -
CDI:
Physician Documentation Request
Admit Date: 04/13/25 11:17
Dear Doctor Asim,
Patient admitted for heart failure exacerbation.
04/16 Hospitalist PN: 'Hypoxic Respiratory Failure; Flash Pulmonary Edema
Heart Failure unknown EF, Acute Exacerbation'
Clarify which of the following accurately represents the acuity of the hypoxic respiratory failure. Possible options might include:
____ Acute
____ Other
____ Unable to determine
Use of terms such as suspected, likely, concern for, or probable (associated with a specific diagnosis that is being evaluated, monitored, or treated as if it exists) are acceptable and can be coded in the inpatient setting, when documented at the
time of discharge.
Thank you,
Mary Perry RN, BSN
CDI Specialist
Available via [place] text
Please use your independent medical judgment in providing your response.
--- NOTE | 2025-04-17 12:32 | W.PN.HOSP.TC ---
Today's Communication/Plan
-
Monitor vital signs and see plan
Continue antibiotics
Check abdominal x-ray
Laxatives
HD per nephrology
Discharge planning
Discussed with brother at bedside
Assessment / Plan
Assessment / Plan
Ms. 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
presents to the ER from [facility] with shortness of breath.
CXR
IMPRESSION:
Radiographic findings highly suggestive of pulmonary edema pattern with associated pleural effusions.
Acute hypoxic Respiratory Failure secondary to acute flash pulmonary edema from hypertensive emergency and acute on chronic diastolic congestive heart failure
ESRD on HD
-patient has not missed HD sessions, on admission she volume overloaded on exam requiring urgent HD, FPE likely 2/2 hypertensive emergency (see below)
-s/p HD on 04/16; with plan for next session 04/17
-Nephrology consult appreciated
-HD per renal
-O2 support as needed
UTI
Continue with ceftriaxone
Follow urine culture
Vomiting overnight possible secondary to constipation
Tube feeds currently on hold
Obtain x-ray abdomen
Continue MiraLAX
Acute on Chronic Anemia
-patient with recent hospitalization at [facility] for GI bleed where she was told she had esophageal irritation and prescribed carafate
-per , she has had multiple transfusions over past 2 months
-iron studies show inflammation
-per , she has never had capsule endoscopy; she has had multiple CT scans
-she received 2 units PRBC overnight 04/13-04/14 with more than appropriate rise
-given appropriate rise with transfusion, possible initial Hg in ER was outlier and patient presented more anemic? I do not see evidence of active bleeding now
Continue to monitor hemoglobin
-patient is on PLavix for PAD, per vascular benefits are with low risk. Okay to discontinue Plavix
-patient will need follow up with outpatient physicians, and close monitoring Hg as outpatient
Non ischemic Troponin elevation in setting of hypertensive emergency and fluid overload
Troponin peaked at 0.301 - appreciate Cardiology consult
- Echo 04/13 with stage II diastolic dysfunction, aortic sclerosis without stenosis, elevated PASP
Hypertensive Emergency
Essential HTN
- Nitro drip weaned
-continue home regimen:
Clonidine 0.3mg tube TID
Doxazosin 2mg tube daily
Hydralazine 100mg tube written as q 6h - ordered for TID here
-patient was on Nifedipine in past, not on [facility] list, now on amlodipine
Renal artery ultrasound pending
Bile Duct Cancer
-per , patient is not a candidate for treatment at this point. They are hopeful for treatment
once acute issues resolve
Recent GI Bleed with diagnosis of esophageal irritation
-continue PPI, IV BID for now
-continue VESSEL WELDER carafate
Hx TIA
-VESSEL WELDER aspirin
Recent hospitalizations at [facility]
-order in to obtain records
HLD
-VESSEL WELDER statin
Chronic Pain, Opiate Dependence
Calciphylaxis
-VESSEL WELDER Oxycodone PRN
-IV sodium thiosulfate with HD
Hypothyroidism - VESSEL WELDER Synthroid
Anxiety - VESSEL WELDER Buspar
Gastroparesis
Chronic Pancreatitis
-recent placement G-J tube, need to obtain outside records
DVT PPx SCD; heparin
FULL CODE - confirmed on admission
I spent a total of 52 minutes with the patient or on the floor. More than 50% of this time involved counseling and coordination of care.
General: No Apparent Distress and Appears Chronically Ill
HEENT: PERRLA and Other (pale conjunctiva )
Respiratory: Decreased Breath Sounds
Cardiac: Regular Rhythm and S1/S2
GI: Soft and Nontender
Musculoskeletal: No Edema
Skin: Warm, Dry and Other (left leg calciphylaxis wounds )
Neuro: AO x 3
Psych: Calm
Anticipated Discharge: 24 - 48 hours
Subjective/Interval History
-
Date of Service: April 17, 2025
vomiting overnight
Objective Data
-
Labs:
Laboratory Results
04/17/25
03:39
WBC 12.5 H
Hgb 8.2 L
Hct 24.5 L
Plt Count 290
Sodium 136
Potassium 3.9
Chloride 103
Carbon Dioxide 26
BUN 22 H
Creatinine 1.5 H
Glucose 110 H
Calcium 9.1
Vital Signs:
Vital Signs
Temp Pulse Resp BP Pulse Ox
98.4 F 76 19 149/73 99
04/17/25 07:55 04/17/25 12:00 04/17/25 12:00 04/17/25 11:55 04/17/25 12:00
I&O
04/16/25 04/17/25 04/18/25
06:59 06:59 06:59
Intake Total 305 / 305
Output Total 490 / 490 0 / 0
Balance -490 / -490 305 / 305
[2025-04-17] MEDS: MIRALAX 17 GRAMS TUBE (12:44)
[2025-04-17 12:48] LABS: Glucose - Point of Care 85 mg/dl (70-99)
--- NOTE | 2025-04-17 13:56 | VATNOTE ---
Pt's midline dressing changed due to being saturated with blood at time of routine assessment. Found with ABD and bill wrap covering it. No bleeding noted during dressing change.
--- NOTE | 2025-04-17 14:13 | PTCARENOTE ---
TF remain on hold, Dr Dailey aware.
--- NOTE | 2025-04-17 16:16 | PTCARENOTE ---
Pt's assessment as documented. TF remain on hold d/t intermittent nausea and dry heaves-Dr. Dailey aware. NSR on tele monitor. BP elevated, medicated standing BP meds and with PRN Hydralazine, see MAR. Pt worked with PT/OT. Able to tolerate chair
position for less than 45 minutes. Family at bedside, updated on POC. Ringing appropriately, call garcia within reach.
[2025-04-17] MEDS: ROCEPHIN 1000 MG IV (18:11)
[2025-04-17] MEDS: STERILE WATER FOR INJECTION 10 ML IV (18:11)
[2025-04-17 18:30] LABS: Glucose - Point of Care 71 mg/dl (70-99)
[2025-04-17] MEDS: HEPARIN 5000 UNITS SC (21:28)
[2025-04-17] MEDS: ZOFRAN 4 MG IV (21:30)
[2025-04-17] MEDS: XALATAN OPHTHALMIC SOLUTION 1 DROP BOTH EYES (21:30)
[2025-04-17] MEDS: APRESOLINE IV (21:31)
[2025-04-17] MEDS: REMERON 15 MG TUBE (21:39)
[2025-04-17] MEDS: PEPCID neonatal/peds 10 MG TUBE (21:39)
[2025-04-17 23:35] LABS: Glucose - Point of Care 70 mg/dl (70-99)
[2025-04-18] VITALS (34 sets, daily range): BP systolic 97–184; BP diastolic 46–99; BMI 32.7
--- NOTE | 2025-04-18 01:46 | PTCARENOTE ---
Pt AAOx3 appearing to be withdraw/ flat affect. Pt TF remain on hold d/t nausea. Pt BP remaining hypertensive, prn medications given see dec. VAT called to bed side to evaluate Pt left midline d/t dressing being bloody enough to soak into gown.
Dressing changed. SQ heparin held d/t continuous small amounts of bleeding from midline, BALL WINDER made aware. Pt scheduled for HD 0700.
[2025-04-18] MEDS: APRESOLINE 10 MG IV (03:25)
[2025-04-18] MEDS: SYNTHROID 50 MCG TUBE (03:26)
[2025-04-18] MEDS: APRESOLINE 100 MG TUBE ×2 (03:26→21:51)
[2025-04-18] MEDS: LAC HYDRIN, AM LACTIN LOTION 1 APPLIC TOPICAL (03:37)
[2025-04-18] MEDS: ZOFRAN 4 MG IV ×2 (04:13→17:53)
[2025-04-18] MEDS: NOVOLOG FLEXPEN-LOW RESISTANCE SC ×4 (06:17→23:27)
--- NOTE | 2025-04-18 06:24 | W.PN.UPDATE ---
Update Note
Progress Note Update
Patient with nausea and dry heaving, currently TF on hold. X-ray result 04/17 noted and patient continue on bowel regimen. BS is gradually dropping and this am BS is 64. Will start the patient D5 IVF @ low rate of 30cc/hr to avoid hypoglycemic
episodes while patient is NPO.
[2025-04-18] MEDS: DEXTROSE 50% SYRINGE 12.5 GRAMS IV (06:29)
[2025-04-18 06:30] LABS: Glucose - Point of Care 63 mg/dl (70-99)
--- NOTE | 2025-04-18 06:37 | PTCARENOTE ---
Pt morning glucose resulting low 63. Protocol followed SORTING MACHINE OPERATOR made aware. orders placed for D5 IVF@ 33cc.
[2025-04-18] MEDS: D5W 1000 IV (07:01)
[2025-04-18 07:09] LABS: Glucose - Point of Care 86 mg/dl (70-99)
[2025-04-18] MEDS: MIRALAX 17 GRAMS TUBE (08:22)
[2025-04-18] MEDS: WELLBUTRIN REGULAR RELEASE 300 MG TUBE (08:22)
[2025-04-18] MEDS: QUESTRAN 4 GRAM TUBE ×2 (08:22→22:11)
[2025-04-18] MEDS: NSS (PRESERVATIVE FREE) 10 ML IV ×2 (08:22→21:49)
[2025-04-18] MEDS: PROTONIX IV 40 MG IV ×2 (08:22→21:49)
[2025-04-18] MEDS: BUSPAR 30 MG TUBE ×2 (08:22→21:51)
[2025-04-18] MEDS: NORVASC 5 MG TUBE (08:22)
[2025-04-18] MEDS: CARAFATE SUSPENSION 1 GM TUBE ×2 (08:23→21:52)
[2025-04-18] MEDS: SENOKOT-S 1 TABLET TUBE (08:23)
[2025-04-18] MEDS: VITAMIN B-6 50 MG TUBE (08:23)
[2025-04-18] MEDS: DEMADEX 100 MG TUBE (08:23)
[2025-04-18] MEDS: LOW STRENGTH ASPIRIN 81 MG TUBE (08:23)
[2025-04-18] MEDS: TRUSOPT 2% OPHTHALMIC SOLUTION 1 DROP BOTH EYES ×2 (08:23→21:54)
[2025-04-18] MEDS: CARDURA 2 MG TUBE (08:23)
[2025-04-18] MEDS: TIMOPTIC 0.5% OPHTHALMIC SOLUTION 1 DROP BOTH EYES ×2 (08:23→21:54)
[2025-04-18] MEDS: CATAPRES 0.3 MG TUBE ×3 (08:23→21:51)
[2025-04-18] MEDS: DESENEX/MITRAZOL/ZEASORB 1 APPLIC TOPICAL ×2 (08:24→21:52)
[2025-04-18 09:08] LABS: Glucose - Point of Care 93 mg/dl (70-99)
[2025-04-18] MEDS: HEPARIN SC ×2 (10:19→21:56)
[2025-04-18] MEDS: SENNA SYRUP 8.8 MG TUBE (10:29)
[2025-04-18] MEDS: DULCOLAX 10 MG RECTAL (10:29)
[2025-04-18 11:25] LABS: Glucose - Point of Care 95 mg/dl (70-99)
--- NOTE | 2025-04-18 11:45 | PTCARENOTE ---
AM heparin held d/t continuous oozing of blood around midline site. Dr Dailey notified and in agreement. IVT RN notified.
--- NOTE | 2025-04-18 12:26 | CM ---
Patient from [facility] with with Hx ESRD on HD, gastroparesis with GJ tube, bile duct cancer with Dx Hypoxic Respiratory Failure, Pulmonary Edema, Heart Failure, UTI, Anemia. Vomiting overnight possible secondary to constipation - Tube feeds
on hold. O2 2L. Receiving IVF, IV Abx. PT & OT; requires assist of 2, recommend skilled rehab. Per nurse; forgetful.
Received phone call from Peter Simpson; request for SNF is approved, from 04/18 to 04/23. NR to Sandra [phone] x [phone], fax [phone]. Auth # [id number].
Spoke with [facility]; patient is setup with [facility] MWF, 5:45am start time, tentative start date 04/20.
Phone call to [facility] (ph [phone]); left message and provided auth info via [employer], new HD Schedule at [facility] and update that d/c on hold today due to constipation/vomiting.
Phone call to [facility], ; left message providing update re; SNF auth, updated Outpt HD facility & schedule, and d/c on hold today.
Plan [facility] with [facility] Out[facility] HD when medically ready.
[2025-04-18 12:31] LABS: Glucose - Point of Care 92 mg/dl (70-99)
--- NOTE | 2025-04-18 12:50 | W.PN.HOSP.TC ---
Today's Communication/Plan
-
Monitor vital signs see plan
HD per nephrology
Continue with BP meds
Hold tube feeds for now, can restart once constipation resolves
Enema
Assessment / Plan
Assessment / Plan
Ms. 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
presents to the ER from [facility] with shortness of breath.
CXR
IMPRESSION:
Radiographic findings highly suggestive of pulmonary edema pattern with associated pleural effusions.
Acute hypoxic Respiratory Failure secondary to acute flash pulmonary edema from hypertensive emergency and acute on chronic diastolic congestive heart failure
ESRD on HD
-patient has not missed HD sessions, on admission she volume overloaded on exam requiring urgent HD, FPE likely 2/2 hypertensive emergency (see below)
- Continue with HD per nephrology
-Nephrology consult appreciated
-HD per renal
-O2 support as needed
UTI
Urine culture without significant growth. Finished 3 days of antibiotic
Vomiting secondary to severe constipation
Tube feeds currently on hold
X-ray abdomen suggestive of constipation
Continue MiraLAX, senna. Not much response with Toprol suppository. Enema
currently on d5 for hypoglycemia
Acute on Chronic Anemia
-patient with recent hospitalization at [facility] for GI bleed where she was told she had esophageal irritation and prescribed carafate
-per , she has had multiple transfusions over past 2 months
-iron studies show inflammation
-per , she has never had capsule endoscopy; she has had multiple CT scans
-she received 2 units PRBC overnight 04/13-04/14 with more than appropriate rise
-given appropriate rise with transfusion, possible initial Hg in ER was outlier and patient presented more anemic? I do not see evidence of active bleeding now
Continue to monitor hemoglobin
-patient is on PLavix for PAD, per vascular benefits are with low risk. Okay to discontinue Plavix
-patient will need follow up with outpatient physicians, and close monitoring Hg as outpatient
Non ischemic Troponin elevation in setting of hypertensive emergency and fluid overload
Troponin peaked at 0.301 - appreciate Cardiology consult
- Echo 04/13 with stage II diastolic dysfunction, aortic sclerosis without stenosis, elevated PASP
Hypertensive Emergency
Essential HTN
- Nitro drip weaned off
-continue home regimen:
Clonidine 0.3mg tube TID
Doxazosin 2mg tube daily
Hydralazine 100mg tube written as q 6h - ordered for TID here
-patient was on Nifedipine in past, not on [facility] list, now on amlodipine
Renal artery ultrasound unable to visualize. Defer CT angiogram or MR angiogram to nephrology
Bile Duct Cancer
-per , patient is not a candidate for treatment at this point. They are hopeful for treatment
once acute issues resolve
Recent GI Bleed with diagnosis of esophageal irritation
-continue PPI, IV BID for now
-continue FIBER GLASS WORKER carafate
Hx TIA
-FIBER GLASS WORKER aspirin
Recent hospitalizations at [facility]
-order in to obtain records
HLD
-FIBER GLASS WORKER statin
Chronic Pain, Opiate Dependence
Calciphylaxis
-FIBER GLASS WORKER Oxycodone PRN
-IV sodium thiosulfate with HD
Hypothyroidism - FIBER GLASS WORKER Synthroid
Anxiety - FIBER GLASS WORKER Buspar
Gastroparesis
Chronic Pancreatitis
-recent placement G-J tube, need to obtain outside records
DVT PPx SCD; heparin
FULL CODE - confirmed on admission
Accepted at [place] [facility]
I spent a total of 52 minutes with the patient or on the floor. More than 50% of this time involved counseling and coordination of care.
General: No Apparent Distress and Appears Chronically Ill
HEENT: PERRLA and Other (pale conjunctiva )
Respiratory: Decreased Breath Sounds
Cardiac: Regular Rhythm and S1/S2
GI: Soft and Nontender
Musculoskeletal: No Edema
Skin: Warm, Dry and Other (left leg calciphylaxis wounds )
Neuro: AO x 3
Psych: Calm
Anticipated Discharge: 24 - 48 hours
Subjective/Interval History
-
Date of Service: April 18, 2025
nauseous
Objective Data
-
Labs:
Laboratory Results
04/18/25
12:47
WBC Pending
Hgb Pending
Hct Pending
Plt Count Pending
Sodium Pending
Potassium Pending
Chloride Pending
Carbon Dioxide Pending
BUN Pending
Creatinine Pending
Glucose Pending
Calcium Pending
Vital Signs:
Vital Signs
Temp Pulse Resp BP Pulse Ox
98.4 F 72 18 139/53 97
04/18/25 12:26 04/18/25 10:00 04/18/25 10:00 04/18/25 10:00 04/18/25 11:05
I&O
04/17/25 04/18/25 04/19/25
06:59 06:59 06:59
Intake Total 305 / 305 100 / 100
Output Total 0 / 0 200 / 200
Balance 305 / 305 -100 / -100
[2025-04-18 13:09] LABS: Hematocrit 27.3 % (37.0-47.0); Hemoglobin 8.9 g/dL (12.0-16.0); Mean Corp Hgb Conc. 32.6 g/dL (33.0-37.0); Mean Corpuscular Volume 93.8 fL (81.0-99.0); Nucleated Red Blood Cells % 0 %; Platelet Count 297 10^3/uL (130-400); Red Cell Dist. Width 16.4 % (11.5-14.5)
[2025-04-18 13:52] LABS: Blood Urea Nitrogen 31 mg/dl (7-17); Calcium 9.3 mg/dl (8.4-10.2); Carbon Dioxide 23 mmol/L (22-30); Chloride 101 mmol/L (98-107); Estimated Creatinine Clearance 28 ml/min; Glucose 90 mg/dl (70-99); Potassium 4.2 mmol/L (3.5-5.1); Sodium 132 mmol/L (135-145); eGFR 22.87
[2025-04-18] MEDS: RETACRIT 10000 UNITS IV (14:01)
[2025-04-18] MEDS: APRESOLINE TUBE (14:11)
[2025-04-18] MEDS: HEPARIN 4000 UNITS INTRACATH (16:18)
--- NOTE | 2025-04-18 16:22 | W.PN.NEPH.HD ---
Assessment
-
pt seen during HD
vitals stable
UF as tolerates
CVC functions fin e
wean O2 as possible
BP seem to improve, monitor BP post HD
sodium thiosulfate post HD
on D5 at 30cc/hr while off TF
treat constipation
Progress Note - Hemodialysis
-
Date of Service: April 18, 2025
Duration: 30 minutes and 3 hours
Potassium Bath: 2
Calcium Bath: 2.5
Opti-Dialyzer: 160
Ultrafiltration: Other (2-2.5kg)
Blood Flow: 400
Dialysate Flow: 600
Heparin: no
EPO: [id number]
[2025-04-18] MEDS: SODIUM THIOSULFATE 350 GRAMS IV (16:46)
[2025-04-18] MEDS: STERILE WATER FOR INJECTION IV (17:35)
[2025-04-18] MEDS: LIPITOR 20 MG TUBE (17:49)
--- NOTE | 2025-04-18 18:00 | PTCARENOTE ---
Pt with nausea and dry heaves. PRN Zofran administered. Dr Dailey aware.
[2025-04-18 18:19] LABS: Glucose - Point of Care 90 mg/dl (70-99)
[2025-04-18] MEDS: TYLENOL 650 MG TUBE (21:51)
[2025-04-18] MEDS: REMERON 15 MG TUBE (21:51)
[2025-04-18] MEDS: PEPCID neonatal/peds 10 MG TUBE (21:52)
[2025-04-18] MEDS: XALATAN OPHTHALMIC SOLUTION 1 DROP BOTH EYES (21:54)
[2025-04-18] MEDS: SENNA SYRUP TUBE (21:54)
[2025-04-18 23:42] LABS: Glucose - Point of Care 106 mg/dl (70-99)
[2025-04-19] VITALS (17 sets, daily range): BP systolic 150–211; BP diastolic 54–136; BMI 31.5
[2025-04-19] MEDS: APRESOLINE 100 MG TUBE ×3 (03:34→20:12)
[2025-04-19] MEDS: SYNTHROID 50 MCG TUBE (03:50)
[2025-04-19 03:59] LABS: Glucose - Point of Care 95 mg/dl (70-99)
[2025-04-19] MEDS: LAC HYDRIN, AM LACTIN LOTION 1 APPLIC TOPICAL (04:09)
[2025-04-19 04:23] LABS: Hematocrit 25.9 % (37.0-47.0); Hemoglobin 8.8 g/dL (12.0-16.0); Mean Corp Hgb Conc. 34.0 g/dL (33.0-37.0); Mean Corpuscular Volume 90.2 fL (81.0-99.0); Nucleated Red Blood Cells % 0 %; Platelet Count 303 10^3/uL (130-400); Red Cell Dist. Width 16.6 % (11.5-14.5)
--- NOTE | 2025-04-19 04:44 | PTCARENOTE ---
Pt affect appearing to be more up beat. Pt brother at bedside. Pt able to get sleep over night allowing most Q2 turns. Wound care done see work list. TF still on hold. No complaints of nausea over night. Assessment care and vitals as charted.
[2025-04-19 04:54] LABS: Blood Urea Nitrogen 17 mg/dl (7-17); Calcium 8.9 mg/dl (8.4-10.2); Carbon Dioxide 23 mmol/L (22-30); Chloride 101 mmol/L (98-107); Estimated Creatinine Clearance 46 ml/min; Glucose 86 mg/dl (70-99); Potassium 3.3 mmol/L (3.5-5.1); Sodium 136 mmol/L (135-145); eGFR 41.49
[2025-04-19] MEDS: KCL ELIXIR 40 MEQ TUBE (05:47)
[2025-04-19] MEDS: NOVOLOG FLEXPEN-LOW RESISTANCE SC ×4 (05:51→23:21)
[2025-04-19 06:02] LABS: Glucose - Point of Care 92 mg/dl (70-99)
[2025-04-19] MEDS: APRESOLINE 10 MG IV ×2 (06:03→23:27)
[2025-04-19 08:50] LABS: Aldosterone/Renin Activ Ratio 28.5 ratio (<=25.0); Renin Activity Results 0.4 ng/mL/hr
[2025-04-19] MEDS: PROTONIX IV 40 MG IV ×2 (10:07→20:14)
[2025-04-19] MEDS: WELLBUTRIN REGULAR RELEASE 300 MG TUBE (10:08)
[2025-04-19] MEDS: SENNA SYRUP 8.8 MG TUBE ×2 (10:08→20:12)
[2025-04-19] MEDS: NORVASC 5 MG TUBE (10:08)
[2025-04-19] MEDS: NSS (PRESERVATIVE FREE) 10 ML IV ×2 (10:08→20:14)
[2025-04-19] MEDS: HEPARIN 5000 UNITS SC ×2 (10:09→20:13)
[2025-04-19] MEDS: SENOKOT-S 1 TABLET TUBE (10:09)
[2025-04-19] MEDS: VITAMIN B-6 50 MG TUBE (10:09)
[2025-04-19] MEDS: MIRALAX 17 GRAMS TUBE (10:09)
[2025-04-19] MEDS: DEMADEX 100 MG TUBE (10:10)
[2025-04-19] MEDS: CARDURA 2 MG TUBE (10:11)
[2025-04-19] MEDS: CATAPRES 0.3 MG TUBE ×3 (10:11→21:50)
[2025-04-19] MEDS: LOW STRENGTH ASPIRIN 81 MG TUBE (10:11)
[2025-04-19] MEDS: BUSPAR 30 MG TUBE ×2 (10:11→20:12)
[2025-04-19] MEDS: CARAFATE SUSPENSION 1 GM TUBE ×2 (10:12→20:12)
[2025-04-19] MEDS: TIMOPTIC 0.5% OPHTHALMIC SOLUTION 1 DROP BOTH EYES ×2 (10:15→20:14)
[2025-04-19] MEDS: TRUSOPT 2% OPHTHALMIC SOLUTION 1 DROP BOTH EYES ×2 (10:15→20:14)
[2025-04-19] MEDS: DESENEX/MITRAZOL/ZEASORB 1 APPLIC TOPICAL ×2 (10:16→20:13)
[2025-04-19] MEDS: QUESTRAN 4 GRAM TUBE ×2 (10:54→20:12)
[2025-04-19] MEDS: ROXICODONE ORAL SOLUTION 15 MG TUBE (10:55)
[2025-04-19] MEDS: D5W IV (10:57)
[2025-04-19 11:57] LABS: Glucose - Point of Care 100 mg/dl (70-99)
--- NOTE | 2025-04-19 12:33 | W.PN.HOSP.TC ---
Today's Communication/Plan
-
Monitor vitals
See plan
Continue with BP meds
HD per nephrology
Restart tube feeds
Continue with laxatives
Hopeful discharge tomorrow
Assessment / Plan
Assessment / Plan
Ms. 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
presents to the ER from [facility] with shortness of breath.
CXR
IMPRESSION:
Radiographic findings highly suggestive of pulmonary edema pattern with associated pleural effusions.
Acute hypoxic Respiratory Failure secondary to acute flash pulmonary edema from hypertensive emergency and acute on chronic diastolic congestive heart failure
ESRD on HD
-patient has not missed HD sessions, on admission she volume overloaded on exam requiring urgent HD, FPE likely 2/2 hypertensive emergency (see below)
- Continue with HD per nephrology
-Nephrology consult appreciated
-HD per renal
-O2 support as needed
UTI
Urine culture without significant growth. Finished 3 days of antibiotic
Vomiting secondary to severe constipation
X-ray abdomen suggestive of constipation, status post enema, suppository. Continue with laxative. Now with multiple bowel movement
Restart tube feeds
Acute on Chronic Anemia
-patient with recent hospitalization at [facility] for GI bleed where she was told she had esophageal irritation and prescribed carafate
-per , she has had multiple transfusions over past 2 months
-iron studies show inflammation
-per , she has never had capsule endoscopy; she has had multiple CT scans
-she received 2 units PRBC overnight 04/13-04/14 with more than appropriate rise
-given appropriate rise with transfusion, possible initial Hg in ER was outlier and patient presented more anemic? I do not see evidence of active bleeding now
Continue to monitor hemoglobin
-patient is on PLavix for PAD, per vascular benefits are with low risk. Okay to discontinue Plavix
-patient will need follow up with outpatient physicians, and close monitoring Hg as outpatient
Requested records however per medical records this came empty
Non ischemic Troponin elevation in setting of hypertensive emergency and fluid overload
Troponin peaked at 0.301 - appreciate Cardiology consult
- Echo 04/13 with stage II diastolic dysfunction, aortic sclerosis without stenosis, elevated PASP
Hypertensive Emergency
Essential HTN
- Nitro drip weaned off
-continue home regimen:
Clonidine 0.3mg tube TID
Doxazosin 2mg tube daily
Hydralazine 100mg tube written as q 6h - ordered for TID here
-patient was on Nifedipine in past, not on [facility] list, now on amlodipine
Renal artery ultrasound unable to visualize. Defer CT angiogram or MR angiogram to nephrology
Bile Duct Cancer
-per , patient is not a candidate for treatment at this point. They are hopeful for treatment
once acute issues resolve
Recent GI Bleed with diagnosis of esophageal irritation
-continue PPI, IV BID for now
-continue TIPPING MACHINE OPERATOR AUTOMATIC carafate
Hx TIA
-TIPPING MACHINE OPERATOR AUTOMATIC aspirin
Recent hospitalizations at [facility]
-order in to obtain records; disk came however empty per medical records
HLD
-TIPPING MACHINE OPERATOR AUTOMATIC statin
Chronic Pain, Opiate Dependence
Calciphylaxis
-TIPPING MACHINE OPERATOR AUTOMATIC Oxycodone PRN
-IV sodium thiosulfate with HD
Hypothyroidism - TIPPING MACHINE OPERATOR AUTOMATIC Synthroid
Anxiety - TIPPING MACHINE OPERATOR AUTOMATIC Buspar
Gastroparesis
Chronic Pancreatitis
-recent placement G-J tube, need to obtain outside records
DVT PPx SCD; heparin
FULL CODE - confirmed on admission
Accepted at [place] [facility]
I spent a total of 53 minutes with the patient or on the floor. More than 50% of this time involved counseling and coordination of care.
General: No Apparent Distress and Appears Chronically Ill
HEENT: PERRLA and Other (pale conjunctiva )
Respiratory: Decreased Breath Sounds
Cardiac: Regular Rhythm and S1/S2
GI: Soft and Nontender
Musculoskeletal: No Edema
Skin: Other (left leg calciphylaxis wounds )
Neuro: AO x 3
Psych: Calm
Anticipated Discharge: Within 24 hours
Subjective/Interval History
-
Date of Service: April 19, 2025
denies pain
Objective Data
-
Labs:
Laboratory Results
04/19/25
03:47
WBC 9.0
Hgb 8.8 L
Hct 25.9 L
Plt Count 303
Sodium 136
Potassium 3.3 L
Chloride 101
Carbon Dioxide 23
BUN 17
Creatinine 1.4 H
Glucose 86
Calcium 8.9
Vital Signs:
Vital Signs
Temp Pulse Resp BP Pulse Ox
97.8 F 70 15 197/74 97
04/19/25 11:00 04/19/25 06:03 04/19/25 06:00 04/19/25 06:03 04/19/25 06:00
I&O
04/18/25 04/19/25 04/20/25
06:59 06:59 06:59
Intake Total 100 / 100 1040 / 1040
Output Total 200 / 200
Balance -100 / -100 1040 / 1040
[2025-04-19] MEDS: ZOFRAN 4 MG IV (12:55)
--- NOTE | 2025-04-19 13:03 | W.PN.NEPH.PH ---
Today's Communication / Plan
-
HD tomorrow
start spironolactone
Assessment/Plan
-
IMP:
Hypoxic Respiratory Failure
Heart Failure unknown EF, Acute Exacerbation
Hypertensive Emergency
Essential HTN
mild hyperkalemia
ESRD on HD at [place] MWF, righ IJ HD catheter
Hx TIA
Recent hospitalizations at [facility]
Acute on chronic anemia
h/o GIB
HLD
Chronic Pain, Opiate Dependence
Calciphylaxis
Hypothyroidism
hyponatremia
Anxiety
Gastroparesis- GJ tube
Chronic Pancreatitis
Recent diagnosis of biliary malignancy
Hypoalbuminemia
Plan:
A/w sob, HTN emergency from vol overload/previously on peritoneal dialysis changed to hemodialysis status post foot infection at [facility] and has been at [facility] INFORMAT[facility] ANALYST
BP remains difficult to control -labile trend
suspect hyperaldo state , low renin and misti 11 with ratio 28
renal duplex was limited study
will start low dose of ALdactone
k repleting today
renal duplex was ordered r/o JASSON on initial consultation still pending
echo noted mild LVF, DDII, pulm HTN
sodium thiosulfate for caliphylaxis-with HD
renal diet and FR strictly
TF on hold-on D5 at 30cc/hr
Dialysis tomorrow
-
-
Date of Service: April 19, 2025
CC / HPI / ROS
-
Chief Complaint:
ESRD
History of Present Illness:
Hemoglobin 8.8 stable
bp labile, high most of the time
wt is significantly down
no fever. k low 3.3
Review of Systems:
improved sob on RA
no cp
Weight is down 10kg since admit
no nausea while TF on hold
Labs
-
Labs:
WBC 9.0 10^3/uL (4.8-10.8) 04/19/25 03:47
RBC 2.87 10^6/uL (4.20-5.40) L 04/19/25 03:47
Hgb 8.8 g/dL (12.0-16.0) L 04/19/25 03:47
Hct 25.9 % (37.0-47.0) L 04/19/25 03:47
Plt Count 303 10^3/uL (130-400) 04/19/25 03:47
Sodium 136 mmol/L (135-145) 04/19/25 03:47
Potassium 3.3 mmol/L (3.5-5.1) L 04/19/25 03:47
Chloride 101 mmol/L (98-107) 04/19/25 03:47
Carbon Dioxide 23 mmol/L (22-30) 04/19/25 03:47
BUN 17 mg/dl (7-17) 04/19/25 03:47
Creatinine 1.4 mg/dL (0.6-1.0) H 04/19/25 03:47
eGFR 41.49 04/19/25 03:47
Glucose 86 mg/dl (70-99) 04/19/25 03:47
Calcium 8.9 mg/dl (8.4-10.2) 04/19/25 03:47
Mge-F-Rtavnldcbiy Pept > 75428 pg/ml 04/13/25 09:43
Albumin 2.8 g/dl (3.5-5.0) L 04/13/25 09:43
Physical Exam
-
Vital Signs:
Vital Signs
Temp Pulse Resp BP Pulse Ox
97.8 F 70 15 197/74 97
04/19/25 11:00 04/19/25 06:03 04/19/25 06:00 04/19/25 06:03 04/19/25 06:00
Cardiovascular:: Regular rate and rhythm
Respiratory:: Bilateral: CTA (decreased)
Lung Excursion:: Normal
Abdomen:: Nontender and Soft
Extremity Edema:: None: Bilateral:
Simon Catheter: No
Other Findings::
leg in bandage for calciphylaxis
--- NOTE | 2025-04-19 13:53 | PN.CDI ---
CDI
- -
CDI:
Physician Documentation Request
Admit Date: 04/13/25 11:17
Dear Doctor Asim,
04/13 PCN: 'L medial heel with thin serosanguineous filled shallow blister, suspect healing stage 3 vs stage 2 PI. said it was down to muscle in the past and is now nearly healed. Sacrum with healing stage 3 PI, base pelaez mixed with pink,
periwound macerated.'
Physician documentation of the type and location of wounds is required for compliant documentation. Based on the above clinical findings and your assessment, please provide the following in your progress note:
1. Location of the ulcer/wound, including laterality.
2. Type (etiology) of ulcer/wound:
- Diabetic ulcer
- Arterial (ischemic) ulcer
- Traumatic wound
- Venous stasis ulcer
- Pressure (decubitus) ulcer
- Non-healing surgical wound
- Other
- Unable to determine
3. For a non-pressure ulcer, please indicate the depth/severity:
- Limited to the breakdown of skin
- With fat layer exposed
- With necrosis of muscle
- With necrosis of bone
- Other
- Unable to determine
4. If a pressure ulcer, please also include the stage* of the ulcer:
- Stage 1 - Skin intact, non-blanchable redness
- Stage 2 - Partial thickness loss of dermis, includes intact or open blister
- Stage 3 - Full thickness tissue not including bone, tendon or muscle
- Stage 4 - Full thickness tissue loss, including exposed bone, tendon or muscle
- Unstageable - Full thickness loss in which the base of the ulcer is covered by slough (yellow, pelaez, henriquez, green or brown) and/or eschar (pelaez, brown or black) in the wound bed.
- Unable to determine
Use of terms such as suspected, likely, concern for, or probable (associated with a specific diagnosis that is being evaluated, monitored, or treated as if it exists) are acceptable and can be coded in the inpatient setting, when documented at the
time of discharge.
Thank you,
Mary Perry RN, BSN
CDI Specialist
Available via [place] text
Please use your independent medical judgment in providing your response.
*Source: National Pressure Ulcer Advisory Panel (NPUAP)
--- NOTE | 2025-04-19 15:29 | CM ---
Received phone call from Peter Simpson; request for SNF is approved, from 04/18 to 04/23. NR to [facility] [phone] x [phone], fax [phone]. Auth # [id number].
Spoke with Aftab Lombardi; patient is setup with [facility] MWF, 5:45am start time, tentative start date 04/20.
Phone call to [facility] (ph [phone]); left message and provided auth info via [employer], [facility] and update that d/c on hold today due to constipation/vomiting.
Phone call to [facility], ; left message providing update re; SNF auth, updated Outpt HD facility & schedule, and d/c on hold today.
Plan [facility] with [facility] Outpt HD when medically ready.
--- NOTE | 2025-04-19 15:34 | CM ---
Pt has Nausea and vomiting today.
Pt for HD tomorrow.
Tatiana Karenmariangel; request for SNF is approved, from 04/18 to 04/23. NRD to [facility] [phone] x [phone], fax [phone]. Auth # [id number].
Yaima at [facility] acute rehab ph [phone] aware of auth and can accept her after HD.Address is : [address] [place] [address].
Spoke with Kenya at [facility]; #[phone] ext [phone] patient is setup with [facility] MWF, 5:45am start time, tentative start date 04/20. Informed Kenya pt will have HD at tomorrow.
Pt will have rehab at [facility] and Outpt HD MWF . Rehab will transport.
Plan [facility] with [facility] Out[facility] HD
[2025-04-19] MEDS: STERILE WATER FOR INJECTION IV (17:17)
[2025-04-19 17:25] LABS: Glucose - Point of Care 94 mg/dl (70-99)
[2025-04-19] MEDS: ALDACTONE 12.5 MG PO (17:29)
[2025-04-19] MEDS: TRANSDERM-SCOP 1 PATCH TRANSDERM (17:29)
[2025-04-19] MEDS: LIPITOR 20 MG TUBE (17:30)
--- NOTE | 2025-04-19 18:47 | PTCARENOTE ---
see nursing assessment and flowsheet. pt c/some nausea this am which she states is chronic. tube feeding resumed per order currently at 20 ml/hr with 10 ml/hr flush. pt is tolerating feeding and reports nausea is slightly diminished this afternoon
as compared to earlier. pt incontinent of mod/large amount soft formed stool.
[2025-04-19 21:21] LABS: Glucose - Point of Care 108 mg/dl (70-99)
[2025-04-19] MEDS: XALATAN OPHTHALMIC SOLUTION 1 DROP BOTH EYES (21:52)
[2025-04-19] MEDS: REMERON 15 MG TUBE (21:52)
[2025-04-19] MEDS: PEPCID neonatal/peds 10 MG TUBE (21:52)
[2025-04-20] VITALS (33 sets, daily range): BP systolic 101–189; BP diastolic 57–117; BMI 32.0
--- NOTE | 2025-04-20 00:10 | PTCARENOTE ---
TF maintained, pt tolerating. Pt refuses Q2T at times, education provided on importance of turning/repositioning to prevent skin breakdown. PRN hydralazine given for SBP>170. See VS documentation. Call garcia within reach. Pt demonstrates use. Care
ongoing.
[2025-04-20] MEDS: APRESOLINE 100 MG TUBE ×3 (03:51→21:09)
[2025-04-20 05:38] LABS: Hematocrit 28.8 % (37.0-47.0); Hemoglobin 9.5 g/dL (12.0-16.0); Mean Corp Hgb Conc. 33.0 g/dL (33.0-37.0); Mean Corpuscular Volume 92.0 fL (81.0-99.0); Nucleated Red Blood Cells % 0 %; Platelet Count 335 10^3/uL (130-400); Red Cell Dist. Width 16.9 % (11.5-14.5)
[2025-04-20 06:00] LABS: Blood Urea Nitrogen 22 mg/dl (7-17); Calcium 9.1 mg/dl (8.4-10.2); Carbon Dioxide 20 mmol/L (22-30); Chloride 101 mmol/L (98-107); Estimated Creatinine Clearance 31 ml/min; Glucose 130 mg/dl (70-99); Potassium 3.8 mmol/L (3.5-5.1); Sodium 136 mmol/L (135-145); eGFR 25.51
[2025-04-20] MEDS: SYNTHROID 50 MCG TUBE (06:04)
[2025-04-20] MEDS: ZOFRAN 4 MG IV (06:07)
--- NOTE | 2025-04-20 06:13 | PTCARENOTE ---
TF on hold for one hour for AM synthroid, pt with sudden onset nausea/vomiting. PRN zofran given per DEC. AM synthroid given per DEC. TF due to restart at 07:00. Will reassess at that time.
[2025-04-20 06:19] LABS: Glucose - Point of Care 128 mg/dl (70-99)
[2025-04-20] MEDS: NOVOLOG FLEXPEN-LOW RESISTANCE SC ×2 (06:19→13:28)
[2025-04-20] MEDS: RETACRIT 8000 UNITS IV (08:56)
[2025-04-20] MEDS: DESENEX/MITRAZOL/ZEASORB 1 APPLIC TOPICAL ×2 (09:00→21:09)
--- NOTE | 2025-04-20 09:29 | W.PN.NEPH.HD ---
Assessment
-
Patient seen on dialysis
Systolic blood pressure 177 at current UF of 3 kg via catheter
Aldactone added due to elevated aldosterone renin ratio to assist with hypertension from possible underlying mineralocorticoid mediated process
Patient normally receives thiosulfate for calciphylaxis however hospital is currently out of supplies
Progress Note - Hemodialysis
-
Date of Service: April 20, 2025
Duration: 30 minutes and 3 hours
Potassium Bath: 3
Calcium Bath: 2.5
Opti-Dialyzer: 160
Ultrafiltration: Other (3 kg as hemodynamically tolerate)
Blood Flow: 400
Dialysate Flow: 600
Heparin: None
EPO: 8000
[2025-04-20 12:30] LABS: Glucose - Point of Care 117 mg/dl (70-99)
[2025-04-20] MEDS: WELLBUTRIN REGULAR RELEASE 300 MG TUBE (12:35)
[2025-04-20] MEDS: CATAPRES 0.3 MG TUBE ×3 (12:38→21:11)
[2025-04-20] MEDS: CARAFATE SUSPENSION 1 GM TUBE ×2 (12:39→21:08)
[2025-04-20] MEDS: DEMADEX 100 MG TUBE (12:39)
[2025-04-20] MEDS: LOW STRENGTH ASPIRIN 81 MG TUBE (12:41)
[2025-04-20] MEDS: BUSPAR 30 MG TUBE ×2 (12:41→21:08)
[2025-04-20] MEDS: VITAMIN B-6 50 MG TUBE (12:43)
[2025-04-20] MEDS: HEPARIN 5000 UNITS SC ×2 (12:45→21:08)
[2025-04-20] MEDS: NSS (PRESERVATIVE FREE) 10 ML IV ×2 (12:47→21:07)
[2025-04-20] MEDS: PROTONIX IV 40 MG IV ×2 (12:47→21:07)
[2025-04-20] MEDS: TRUSOPT 2% OPHTHALMIC SOLUTION 1 DROP BOTH EYES ×2 (12:48→21:10)
[2025-04-20] MEDS: TIMOPTIC 0.5% OPHTHALMIC SOLUTION 1 DROP BOTH EYES ×2 (12:48→21:10)
--- NOTE | 2025-04-20 13:17 | W.PN.HOSP.TC ---
Today's Communication/Plan
-
Monitor vital signs see plan
HD today per nephrology
Intermittent nausea and vomiting, on Zofran
Titrate tube feeds to goal
Hopeful discharge in next 24 hours
monitor hgb
Assessment / Plan
Assessment / Plan
Ms. 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
presents to the ER from [facility] with shortness of breath.
CXR
IMPRESSION:
Radiographic findings highly suggestive of pulmonary edema pattern with associated pleural effusions.
Acute hypoxic Respiratory Failure secondary to acute flash pulmonary edema from hypertensive emergency and acute on chronic diastolic congestive heart failure
ESRD on HD
-patient has not missed HD sessions, on admission she volume overloaded on exam requiring urgent HD, FPE likely 2/2 hypertensive emergency (see below)
- Continue with HD per nephrology
-Nephrology consult appreciated
-HD per renal
-O2 support as needed
UTI
Urine culture without significant growth. Finished 3 days of antibiotic
Vomiting secondary to severe constipation
X-ray abdomen suggestive of constipation, status post enema, suppository. Continue with laxative. Now with multiple bowel movement
Restarted tube feeds, slowly increase tube feeds to goal
Acute on Chronic Anemia
-patient with recent hospitalization at [facility] for GI bleed where she was told she had esophageal irritation and prescribed carafate
-per , she has had multiple transfusions over past 2 months
-iron studies show inflammation
-per , she has never had capsule endoscopy; she has had multiple CT scans
-she received 2 units PRBC overnight 04/13-04/14 with more than appropriate rise
-given appropriate rise with transfusion, possible initial Hg in ER was outlier and patient presented more anemic? I do not see evidence of active bleeding now
Continue to monitor hemoglobin
-patient is on PLavix for PAD, per vascular benefits are with low risk. Okay to discontinue Plavix
-patient will need follow up with outpatient physicians, and close monitoring Hg as outpatient
Requested records however per medical records this came empty
Non ischemic Troponin elevation in setting of hypertensive emergency and fluid overload
Troponin peaked at 0.301 - appreciate Cardiology consult
- Echo 04/13 with stage II diastolic dysfunction, aortic sclerosis without stenosis, elevated PASP
Hypertensive Emergency
Essential HTN
- Nitro drip weaned off
-continue home regimen:
Clonidine 0.3mg tube TID
Doxazosin 2mg tube daily
Hydralazine 100mg tube written as q 6h - ordered for TID here
-patient was on Nifedipine in past, not on [facility] list, now on amlodipine
Renal artery ultrasound unable to visualize. Defer CT angiogram or MR angiogram to nephrology
Added Aldactone
Bile Duct Cancer
-per family, patient is not a candidate for treatment at this point. They are hopeful for treatment
once acute issues resolve
Recent GI Bleed with diagnosis of esophageal irritation
-continue PPI, IV BID for now
-continue SURVEYOR'S ASSISTANT carafate
Hx TIA
-SURVEYOR'S ASSISTANT aspirin
Recent hospitalizations at [facility]
-order in to obtain records; disk came however empty per medical records
HLD
-SURVEYOR'S ASSISTANT statin
Chronic Pain, Opiate Dependence
Calciphylaxis
-SURVEYOR'S ASSISTANT Oxycodone PRN
-IV sodium thiosulfate with HD
Hypothyroidism - SURVEYOR'S ASSISTANT Synthroid
Anxiety - SURVEYOR'S ASSISTANT Buspar
Gastroparesis
Chronic Pancreatitis
-recent placement G-J tube, need to obtain outside records
L medial heel with thin serosanguineous filled shallow blister, suspect healing stage 2 PI
Sacrum with healing stage 3 PI
DVT PPx SCD; heparin
FULL CODE - confirmed on admission
Accepted at [facility]
I spent a total of 52 minutes with the patient or on the floor. More than 50% of this time involved counseling and coordination of care.
General: No Apparent Distress and Appears Chronically Ill
HEENT: PERRLA and Other (pale conjunctiva )
Respiratory: Decreased Breath Sounds
Cardiac: Regular Rhythm and S1/S2
GI: Soft and Nontender
Musculoskeletal: No Edema
Skin: Other (left leg calciphylaxis wounds )
Neuro: AO x 3
Psych: Calm
Anticipated Discharge: Within 24 hours
Subjective/Interval History
-
Date of Service: April 20, 2025
denies pain
Objective Data
-
Labs:
Laboratory Results
04/20/25
04:59
WBC 8.4
Hgb 9.5 L
Hct 28.8 L
Plt Count 335
Sodium 136
Potassium 3.8
Chloride 101
Carbon Dioxide 20 L
BUN 22 H
Creatinine 2.1 H
Glucose 130 H
Calcium 9.1
Vital Signs:
Vital Signs
Temp Pulse Resp BP Pulse Ox
97.5 F 75 11 121/88 97
04/20/25 11:26 04/20/25 12:39 04/20/25 11:00 04/20/25 12:39 04/20/25 11:04
I&O
04/19/25 04/20/25 04/21/25
06:59 06:59 06:59
Intake Total 1040 / 1040 460 / 460
Balance 1040 / 1040 460 / 460
[2025-04-20] MEDS: MIRALAX TUBE (13:19)
[2025-04-20] MEDS: SENOKOT-S TUBE (13:19)
[2025-04-20] MEDS: SENNA SYRUP TUBE ×3 (13:20→21:56)
[2025-04-20] MEDS: QUESTRAN TUBE (13:20)
--- NOTE | 2025-04-20 13:43 | CM ---
EDDA spoke to Yaima at [facility]. Yaima advised that a bed available for admission tomorrow if medically stable. If pt is not cleared for discharge on Wednesday, please contact [phone] and ask to speak
with the supervisor toy parts former to notify them.
Plan: Transfer to [facility]
Address [address] [place] [id number].
Report: [phone]

Dialysis confirmed for Wednesday start of care (04/23/2025) at [facility]
Address: [address] [place] [id number].
Yaima notified of chair time; Facility will provide transport.
Pt to arrive at 5:35 am to complete intake, 5:45 am chair time
Report: [phone]
--- NOTE | 2025-04-20 14:28 | PN.CDI ---
CDI
- -
CDI:
Physician Documentation Request
Admit Date: 04/13/25 11:17
Dear Doctor Asim,
Patient admitted for heart failure.
04/19 Potassium level: 3.3
04/19 Potassium chloride 40 meq tube administered
Based on the above, could you clarify in the progress notes, the appropriate diagnosis, if significant, that supports the above abnormalities and additional evaluation, monitoring and/or treatment rendered:
Hypokalemia
Abnormal lab value insignificant
Other
Use of terms such as suspected, likely, concern for, or probable (associated with a specific diagnosis that is being evaluated, monitored, or treated as if it exists) are acceptable and can be coded in the inpatient setting, when documented at the
time of discharge.
Thank you,
Mary Perry RN, BSN
CDI Specialist
Available via [place] text
Please use your independent medical judgment in providing your response.
[2025-04-20] MEDS: SODIUM THIOSULFATE IV (15:06)
[2025-04-20] MEDS: ALDACTONE PO (17:07)
[2025-04-20] MEDS: CARDURA TUBE (17:07)
[2025-04-20] MEDS: NORVASC TUBE (17:07)
[2025-04-20] MEDS: STERILE WATER FOR INJECTION IV (17:08)
[2025-04-20 17:59] LABS: Glucose - Point of Care 167 mg/dl (70-99)
[2025-04-20] MEDS: LIPITOR 20 MG TUBE (18:06)
[2025-04-20] MEDS: NOVOLOG FLEXPEN-LOW RESISTANCE 1 UNITS SC (18:07)
[2025-04-20] MEDS: REMERON 15 MG TUBE (21:07)
[2025-04-20] MEDS: QUESTRAN 4 GRAM TUBE (21:07)
[2025-04-20] MEDS: MELATONIN 10 MG TUBE (21:07)
[2025-04-20] MEDS: XALATAN OPHTHALMIC SOLUTION 1 DROP BOTH EYES (21:12)
[2025-04-20] MEDS: PEPCID neonatal/peds 10 MG TUBE (21:13)
--- NOTE | 2025-04-20 22:31 | PTCARENOTE ---
Addendum entered by Glory Buchanan RN 04/20/25 23:44:
Meche YOON on floor and updated on conversation with pt's re: his concern for pt having temp. No further orders at this time.
Original Note:
PCT obtained oral temp on pt resulted 98.6. Pt's walking hallway looking for this RN. explained to this RN that he 'wanted it documented that I know my is having a fever right now because her temperature is 2 degrees higher than
her normal. I've lived with this woman all my life and I know when she is having a fever.' This RN explained to pt's that her heart rate is not high (77) and she does not feel warm/hot to touch. stated 'I'm concerned because Dr Dailey
stated she would be discharged tomorrow.' I explained to pt's that I would monitor pt throughout the night and his concern can be discussed with physician in am and that a note would be entered into her chart.' stated 'ok.' Will
continue to monitor.
[2025-04-21] VITALS (15 sets, daily range): BP systolic 142–174; BP diastolic 55–113; BMI 31.3
[2025-04-21 00:05] LABS: Glucose - Point of Care 181 mg/dl (70-99)
[2025-04-21] MEDS: FLUSH (NSS) 2 FLUSH IV ×4 (00:30→21:12)
[2025-04-21] MEDS: DILAUDID 0.5 MG IV (00:30)
[2025-04-21] MEDS: ZOFRAN 4 MG IV ×3 (01:05→16:02)
--- NOTE | 2025-04-21 01:08 | PTCARENOTE ---
Pt vomiting small amount of thin yellow secretions. Medicated with Zofran as ordered. Of note, pt recently received IV Dilaudid for back pain. Will continue to monitor.
[2025-04-21 04:58] LABS: Glucose - Point of Care 165 mg/dl (70-99)
[2025-04-21] MEDS: SYNTHROID 50 MCG TUBE (05:13)
[2025-04-21] MEDS: NOVOLOG FLEXPEN-LOW RESISTANCE 1 UNITS SC ×3 (05:13→12:48)
[2025-04-21] MEDS: APRESOLINE 100 MG TUBE ×3 (05:13→21:06)
[2025-04-21 05:47] LABS: Hematocrit 28.1 % (37.0-47.0); Hemoglobin 9.3 g/dL (12.0-16.0); Mean Corp Hgb Conc. 33.1 g/dL (33.0-37.0); Mean Corpuscular Volume 93.7 fL (81.0-99.0); Nucleated Red Blood Cells % 0 %; Platelet Count 320 10^3/uL (130-400); Red Cell Dist. Width 17.3 % (11.5-14.5)
[2025-04-21 06:15] LABS: Blood Urea Nitrogen 17 mg/dl (7-17); Calcium 9.0 mg/dl (8.4-10.2); Carbon Dioxide 25 mmol/L (22-30); Chloride 102 mmol/L (98-107); Estimated Creatinine Clearance 43 ml/min; Glucose 164 mg/dl (70-99); Potassium 3.7 mmol/L (3.5-5.1); Sodium 134 mmol/L (135-145); eGFR 38.20
[2025-04-21] MEDS: HEPARIN 5000 UNITS SC ×2 (08:52→21:05)
[2025-04-21] MEDS: PROTONIX IV 40 MG IV ×2 (08:52→21:05)
[2025-04-21] MEDS: CARAFATE SUSPENSION 1 GM TUBE ×2 (08:53→21:06)
[2025-04-21] MEDS: SENNA SYRUP 8.8 MG TUBE ×2 (08:53→21:06)
[2025-04-21] MEDS: NSS (PRESERVATIVE FREE) 10 ML IV ×2 (08:53→21:05)
[2025-04-21] MEDS: QUESTRAN 4 GRAM TUBE ×2 (08:53→21:06)
[2025-04-21] MEDS: MIRALAX 17 GRAMS TUBE (08:54)
[2025-04-21] MEDS: DEMADEX 100 MG TUBE (08:54)
[2025-04-21] MEDS: WELLBUTRIN REGULAR RELEASE 300 MG TUBE (08:55)
[2025-04-21] MEDS: CATAPRES 0.3 MG TUBE ×3 (08:55→21:07)
[2025-04-21] MEDS: LOW STRENGTH ASPIRIN 81 MG TUBE (08:56)
[2025-04-21] MEDS: ALDACTONE 12.5 MG PO (08:56)
--- NOTE | 2025-04-21 08:56 | W.PN.NEPH.PH ---
Today's Communication / Plan
-
Blood pressure appears to be somewhat improved with addition of
Next dialysis will be on Wednesday
Assessment/Plan
-
IMP:
Hypoxic Respiratory Failure
Heart Failure unknown EF, Acute Exacerbation
Hypertensive Emergency
Essential HTN
mild hyperkalemia
ESRD on HD at [facility] MWF, righ IJ HD catheter
Hx TIA
Recent hospitalizations at [facility]
Acute on chronic anemia
h/o GIB
HLD
Chronic Pain, Opiate Dependence
Calciphylaxis
Hypothyroidism
hyponatremia
Anxiety
Gastroparesis- GJ tube
Chronic Pancreatitis
Recent diagnosis of biliary malignancy
Hypoalbuminemia
Plan:
A/w sob, HTN emergency from vol overload/previously on peritoneal dialysis changed to hemodialysis status post foot infection at [facility] and has been at [facility]IN[facility]
BP remains difficult to control -labile trend
suspected hyperaldo state , low renin and misti 11 with ratio 28: now on Aldactone
renal duplex was limited study
echo noted mild LVF, DDII, pulm HTN
sodium thiosulfate for caliphylaxis-with HD
renal diet and FR strictly
Tube feeds back on but patient with emesis earlier this morning
Dialysis Wednesday
-
-
Date of Service: April 21, 2025
CC / HPI / ROS
-
Chief Complaint:
ESRD
History of Present Illness:
Hemoglobin 9.3 stable
bp labile, high most of the time
wt is significantly down
k 3.7
Vomiting overnight
Review of Systems:
improved sob on RA
Vomiting overnight
no cp
Weight is down 12kg since admit
Labs
-
Labs:
WBC 7.8 10^3/uL (4.8-10.8) 07/19/25 05:25
RBC 3.00 10^6/uL (4.20-5.40) L 04/21/25 05:25
Hgb 9.3 g/dL (12.0-16.0) L 04/21/25 05:25
Hct 28.1 % (37.0-47.0) L 04/21/25 05:25
Plt Count 320 10^3/uL (130-400) 04/21/25 05:25
Sodium 134 mmol/L (135-145) L 04/21/25 05:25
Potassium 3.7 mmol/L (3.5-5.1) 04/21/25 05:25
Chloride 102 mmol/L (98-107) 04/21/25 05:25
Carbon Dioxide 25 mmol/L (22-30) 04/21/25 05:25
BUN 17 mg/dl (7-17) 04/21/25 05:25
Creatinine 1.5 mg/dL (0.6-1.0) H 04/21/25 05:25
eGFR 38.20 04/21/25 05:25
Glucose 164 mg/dl (70-99) H 04/21/25 05:25
Calcium 9.0 mg/dl (8.4-10.2) 04/21/25 05:25
Ixq-S-Nhxqqxawzzr Pept > 71085 pg/ml 04/13/25 09:43
Albumin 2.8 g/dl (3.5-5.0) L 04/13/25 09:43
Physical Exam
-
Vital Signs:
Vital Signs
Temp Pulse Resp BP Pulse Ox
98.5 F 63 16 159/67 93
04/21/25 07:56 04/21/25 08:00 04/21/25 08:00 04/21/25 08:00 04/21/25 08:00
Cardiovascular:: Regular rate and rhythm
Respiratory:: Bilateral: CTA (decreased)
Lung Excursion:: Normal
Abdomen:: Nontender and Soft
Extremity Edema:: None: Bilateral:
Simon Catheter: No
Other Findings::
leg in bandage for calciphylaxis
[2025-04-21] MEDS: BUSPAR 30 MG TUBE ×2 (08:57→21:07)
[2025-04-21] MEDS: SENOKOT-S 1 TABLET TUBE (08:57)
[2025-04-21] MEDS: CARDURA 2 MG TUBE (08:58)
[2025-04-21] MEDS: NORVASC 5 MG TUBE (08:59)
[2025-04-21] MEDS: VITAMIN B-6 50 MG TUBE (08:59)
[2025-04-21] MEDS: TRUSOPT 2% OPHTHALMIC SOLUTION 1 DROP BOTH EYES ×2 (09:00→21:08)
[2025-04-21] MEDS: TIMOPTIC 0.5% OPHTHALMIC SOLUTION 1 DROP BOTH EYES ×2 (09:00→21:08)
[2025-04-21] MEDS: DESENEX/MITRAZOL/ZEASORB 1 APPLIC TOPICAL ×2 (09:01→21:07)
[2025-04-21] MEDS: APRESOLINE 10 MG IV (10:17)
--- NOTE | 2025-04-21 10:54 | PTCARENOTE ---
Pt had 2 vomit episodes given Zofran holding TF . Dr Dailey ordered Tigan, pt sleeping no N/V will let her sleep. at bedside.
[2025-04-21] MEDS: TIGAN 200 MG IM (11:02)
[2025-04-21 12:25] LABS: Glucose - Point of Care 163 mg/dl (70-99)
--- NOTE | 2025-04-21 13:26 | W.PN.HOSP.TC ---
Today's Communication/Plan
-
Monitor vitals
See plan
Trial of Tigan
Check abdominal x-ray
Restart tube feeds once nausea improves and abdominal x-ray looks okay
Discussed with spouse at bedside
hopeful dc soon
Assessment / Plan
Assessment / Plan
Ms. 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
presents to the ER from [facility] with shortness of breath.
CXR
IMPRESSION:
Radiographic findings highly suggestive of pulmonary edema pattern with associated pleural effusions.
Acute hypoxic Respiratory Failure secondary to acute flash pulmonary edema from hypertensive emergency and acute on chronic diastolic congestive heart failure
ESRD on HD
-patient has not missed HD sessions, on admission she volume overloaded on exam requiring urgent HD, FPE likely 2/2 hypertensive emergency (see below)
- Continue with HD per nephrology
-Nephrology consult appreciated
-HD per renal
-O2 support as needed
UTI
Urine culture without significant growth. Finished 3 days of antibiotic
Vomiting secondary to severe constipation
X-ray abdomen suggestive of constipation, status post enema, suppository. Continue with laxative. Now with multiple bowel movement
Restarted tube feeds, slowly increase tube feeds to goal
Trial of Tigan
If symptoms do not improve then likely will need GI imaging
Acute on Chronic Anemia
-patient with recent hospitalization at [facility] for GI bleed where she was told she had esophageal irritation and prescribed carafate
-per , she has had multiple transfusions over past 2 months
-iron studies show inflammation
-per , she has never had capsule endoscopy; she has had multiple CT scans
-she received 2 units PRBC overnight 04/13-04/14 with more than appropriate rise
-given appropriate rise with transfusion, possible initial Hg in ER was outlier and patient presented more anemic? I do not see evidence of active bleeding now
Continue to monitor hemoglobin
-patient is on PLavix for PAD, per vascular benefits are with low risk. Okay to discontinue Plavix
-patient will need follow up with outpatient physicians, and close monitoring Hg as outpatient
Requested records however per medical records this came empty
Non ischemic Troponin elevation in setting of hypertensive emergency and fluid overload
Troponin peaked at 0.301 - appreciate Cardiology consult
- Echo 04/13 with stage II diastolic dysfunction, aortic sclerosis without stenosis, elevated PASP
Hypertensive Emergency
Essential HTN
- Nitro drip weaned off
-continue home regimen:
Clonidine 0.3mg tube TID
Doxazosin 2mg tube daily
Hydralazine 100mg tube written as q 6h - ordered for TID here
-patient was on Nifedipine in past, not on [facility] list, now on amlodipine
Renal artery ultrasound unable to visualize. Defer CT angiogram or MR angiogram to nephrology
Added Aldactone
Hyponatremia
Monitor
Bile Duct Cancer
-per family, patient is not a candidate for treatment at this point. They are hopeful for treatment
once acute issues resolve
Recent GI Bleed with diagnosis of esophageal irritation
-continue PPI, IV BID for now
-continue NEON SIGN INSTALLER carafate
Hx TIA
-NEON SIGN INSTALLER aspirin
Recent hospitalizations at [facility]
-order in to obtain records; disk came however empty per medical records
HLD
-NEON SIGN INSTALLER statin
Chronic Pain, Opiate Dependence
Calciphylaxis
-NEON SIGN INSTALLER Oxycodone PRN
-IV sodium thiosulfate with HD
Hypothyroidism - NEON SIGN INSTALLER Synthroid
Anxiety - NEON SIGN INSTALLER Buspar
Gastroparesis
Chronic Pancreatitis
-recent placement G-J tube, need to obtain outside records
L medial heel with thin serosanguineous filled shallow blister, suspect healing stage 2 PI
Sacrum with healing stage 3 PI
DVT PPx SCD; heparin
FULL CODE - confirmed on admission
Accepted at [facility]
I spent a total of 52 minutes with the patient or on the floor. More than 50% of this time involved counseling and coordination of care.
General: No Apparent Distress and Appears Chronically Ill
HEENT: PERRLA and Other (pale conjunctiva )
Respiratory: Decreased Breath Sounds
Cardiac: Regular Rhythm and S1/S2
GI: Soft and Nontender
Musculoskeletal: No Edema
Skin: Other (left leg calciphylaxis wounds )
Neuro: AO x 3
Psych: Calm
Anticipated Discharge: Within 24 hours
Subjective/Interval History
-
Date of Service: April 21, 2025
intermittent vomiting
Objective Data
-
Labs:
Laboratory Results
04/21/25
05:25
WBC 7.8
Hgb 9.3 L
Hct 28.1 L
Plt Count 320
Sodium 134 L
Potassium 3.7
Chloride 102
Carbon Dioxide 25
BUN 17
Creatinine 1.5 H
Glucose 164 H
Calcium 9.0
Vital Signs:
Vital Signs
Temp Pulse Resp BP Pulse Ox
98.9 F 62 16 171/73 96
04/21/25 11:30 04/21/25 10:17 04/21/25 08:00 04/21/25 12:49 04/21/25 08:00
I&O
04/20/25 04/21/25 04/22/25
06:59 06:59 06:59
Intake Total 460 / 460 1360 / 1360
Balance 460 / 460 1360 / 1360
--- NOTE | 2025-04-21 16:20 | CM ---
Left voice mail for [facility] no d/c today from .
Wednesday CM will need to call back to contact [phone] and ask to speak with the boat cleaning supervisor to confirm bed available for Wednesday as patient is schedule to start HD Very early Wednesday morning. Yaima at [facility] is the contact CM set d/c up with prior to weekend.
Plan: Transfer to [facility]
Address [address] [place] [id number].
Report: [phone]

Dialysis confirmed for Wednesday start of care (04/23/2025) at [facility]
Address: [address] [place] [id number].
Yaima notified of chair time; Facility will provide transport.
Pt to arrive at 5:35 am to complete intake, 5:45 am chair time
Report: [phone]
--- NOTE | 2025-04-21 16:21 | PTCARENOTE ---
Pt nauseated TF remains on hold. dressings changed Pt had sm soft BM DR Dailey aware
[2025-04-21] MEDS: STERILE WATER FOR INJECTION IV (17:26)
[2025-04-21] MEDS: LIPITOR 20 MG TUBE (18:02)
[2025-04-21] MEDS: NOVOLOG FLEXPEN-LOW RESISTANCE SC ×2 (18:05→23:50)
[2025-04-21 18:16] LABS: Glucose - Point of Care 118 mg/dl (70-99)
[2025-04-21] MEDS: REMERON 15 MG TUBE (21:07)
[2025-04-21] MEDS: PEPCID neonatal/peds 10 MG TUBE (21:07)
[2025-04-21] MEDS: XALATAN OPHTHALMIC SOLUTION 1 DROP BOTH EYES (21:08)
[2025-04-21] MEDS: MELATONIN 10 MG TUBE (21:10)
[2025-04-21] MEDS: COMPAZINE 10 MG IV (21:12)
[2025-04-21 23:26] LABS: Glucose - Point of Care 115 mg/dl (70-99)
[2025-04-22] VITALS (15 sets, daily range): BP systolic 151–193; BP diastolic 55–108; BMI 30.9
--- NOTE | 2025-04-22 00:49 | PTCARENOTE ---
Pt resting comfortably throughout shift. N/V throughout day shift so pt is very tired/drowsy but arousable. TF's remain on hold after discussion with Nayla YOON. Receiving meds through peg tube without difficulty. VSS. Afebrile. SR/PQT on CM rate
60's. POX RA 93%. Can be incontinent urine vs. oliguric. Next HD Wednesday. Rest of assessment as documented. Wounds as documented. remains at bedside overnight. Call garcia remains within reach. Will continue to monitor.
[2025-04-22 03:36] LABS: Hematocrit 28.8 % (37.0-47.0); Hemoglobin 9.6 g/dL (12.0-16.0); Mean Corp Hgb Conc. 33.3 g/dL (33.0-37.0); Mean Corpuscular Volume 93.5 fL (81.0-99.0); Nucleated Red Blood Cells % 0 %; Platelet Count 280 10^3/uL (130-400); Red Cell Dist. Width 17.4 % (11.5-14.5)
[2025-04-22 03:56] LABS: Blood Urea Nitrogen 22 mg/dl (7-17); Calcium 9.2 mg/dl (8.4-10.2); Carbon Dioxide 24 mmol/L (22-30); Chloride 103 mmol/L (98-107); Estimated Creatinine Clearance 32 ml/min; Glucose 100 mg/dl (70-99); Potassium 3.8 mmol/L (3.5-5.1); Sodium 134 mmol/L (135-145); eGFR 27.04
[2025-04-22] MEDS: APRESOLINE 100 MG TUBE ×3 (05:04→20:03)
[2025-04-22] MEDS: SYNTHROID 50 MCG TUBE (05:04)
[2025-04-22] MEDS: NOVOLOG FLEXPEN-LOW RESISTANCE SC ×4 (05:04→23:48)
[2025-04-22 05:05] LABS: Glucose - Point of Care 93 mg/dl (70-99)
[2025-04-22] MEDS: ZOFRAN 4 MG IV (09:57)
[2025-04-22] MEDS: CARAFATE SUSPENSION 1 GM TUBE ×2 (09:58→20:04)
[2025-04-22] MEDS: PROTONIX IV 40 MG IV ×2 (09:58→20:04)
[2025-04-22] MEDS: HEPARIN 5000 UNITS SC ×2 (09:58→20:05)
[2025-04-22] MEDS: NSS (PRESERVATIVE FREE) 10 ML IV ×2 (09:58→20:05)
[2025-04-22] MEDS: MIRALAX 17 GRAMS TUBE (09:59)
[2025-04-22] MEDS: ALDACTONE 12.5 MG PO (09:59)
[2025-04-22] MEDS: QUESTRAN 4 GRAM TUBE ×2 (09:59→22:44)
[2025-04-22] MEDS: CATAPRES 0.3 MG TUBE ×3 (09:59→21:36)
[2025-04-22] MEDS: BUSPAR 30 MG TUBE ×2 (10:00→20:03)
[2025-04-22] MEDS: CARDURA 2 MG TUBE (10:00)
[2025-04-22] MEDS: WELLBUTRIN REGULAR RELEASE 300 MG TUBE (10:00)
[2025-04-22] MEDS: SENOKOT-S 1 TABLET TUBE (10:01)
[2025-04-22] MEDS: NORVASC 5 MG TUBE (10:02)
[2025-04-22] MEDS: DULCOLAX 10 MG RECTAL (10:02)
[2025-04-22] MEDS: DEMADEX 100 MG TUBE (10:02)
[2025-04-22] MEDS: LOW STRENGTH ASPIRIN 81 MG TUBE (10:02)
[2025-04-22] MEDS: DESENEX/MITRAZOL/ZEASORB 1 APPLIC TOPICAL ×2 (10:03→20:06)
[2025-04-22] MEDS: TIMOPTIC 0.5% OPHTHALMIC SOLUTION 1 DROP BOTH EYES ×2 (10:03→20:06)
[2025-04-22] MEDS: TRUSOPT 2% OPHTHALMIC SOLUTION 1 DROP BOTH EYES ×2 (10:03→20:07)
[2025-04-22] MEDS: VITAMIN B-6 50 MG TUBE (10:03)
--- NOTE | 2025-04-22 10:17 | W.PN.NEPH.PH ---
Addendum entered and electronically signed by Chuy Alvarado DO 04/22/25 10:30:
Aldactone titrated up from 12.5 to 25 mg
Original Note:
Today's Communication / Plan
-
Escalate Aldactone to 50 mg daily
Dialysis tomorrow, will continue dry weight reduction as hemodynamically tolerated
Assessment/Plan
-
IMP:
Hypoxic Respiratory Failure
Heart Failure unknown EF, Acute Exacerbation
Hypertensive Emergency
Essential HTN
mild hyperkalemia
ESRD on HD at [facility], [facility] IJ HD catheter
Hx TIA
Recent hospitalizations at [facility]
Acute on chronic anemia
h/o GIB
HLD
Chronic Pain, Opiate Dependence
Calciphylaxis
Hypothyroidism
hyponatremia
Anxiety
Gastroparesis- GJ tube
Chronic Pancreatitis
Recent diagnosis of biliary malignancy
Hypoalbuminemia
Plan:
A/w sob, HTN emergency from vol overload/previously on peritoneal dialysis changed to hemodialysis status post foot infection at [facility] and has been at [facility]
BP remains difficult to control -labile trend
suspected hyperaldo state , low renin and misti 11 with ratio 28: now on Aldactone, will titrate up to 50mg
renal duplex was limited study
echo noted mild LVF, DDII, pulm HTN, continue dry weight reduction as hemodynamically tolerated
sodium thiosulfate for caliphylaxis-with HD
renal diet and FR strictly
Tube feeds back off due to vomiting
Dialysis Wednesday,orders provided
-
-
Date of Service: April 22, 2025
CC / HPI / ROS
-
Chief Complaint:
ESRD
History of Present Illness:
Hemoglobin stable
bp labile,
wt is significantly down
Review of Systems:
improved sob on RA
no cp
Weight is down 13kg since admit
Still unable to tolerate tube feeds
Labs
-
Labs:
WBC 7.6 10^3/uL (4.8-10.8) 04/22/25 03:19
RBC 3.08 10^6/uL (4.20-5.40) L 04/22/25 03:19
Hgb 9.6 g/dL (12.0-16.0) L 04/22/25 03:19
Hct 28.8 % (37.0-47.0) L 04/22/25 03:19
Plt Count 280 10^3/uL (130-400) 04/22/25 03:19
Sodium 134 mmol/L (135-145) L 04/22/25 03:19
Potassium 3.8 mmol/L (3.5-5.1) 04/22/25 03:19
Chloride 103 mmol/L (98-107) 04/22/25 03:19
Carbon Dioxide 24 mmol/L (22-30) 04/22/25 03:19
BUN 22 mg/dl (7-17) H 04/22/25 03:19
Creatinine 2.0 mg/dL (0.6-1.0) H 04/22/25 03:19
eGFR 27.04 04/22/25 03:19
Glucose 100 mg/dl (70-99) H 04/22/25 03:19
Calcium 9.2 mg/dl (8.4-10.2) 04/22/25 03:19
Jhg-A-Ukzdfcmsnqb Pept > 86015 pg/ml 04/13/25 09:43
Albumin 2.8 g/dl (3.5-5.0) L 04/13/25 09:43
Physical Exam
-
Vital Signs:
Vital Signs
Temp Pulse Resp BP Pulse Ox
97.7 F 72 17 161/77 94
04/22/25 03:38 04/22/25 10:02 04/22/25 04:00 04/22/25 10:02 04/22/25 04:00
Cardiovascular:: Regular rate and rhythm
Respiratory:: Bilateral: CTA (decreased)
Lung Excursion:: Normal
Abdomen:: Nontender and Soft
Extremity Edema:: None: Bilateral:
Simon Catheter: No
Other Findings::
leg in bandage for calciphylaxis
[2025-04-22 12:13] LABS: Glucose - Point of Care 98 mg/dl (70-99)
--- NOTE | 2025-04-22 12:42 | W.PN.HOSP.TC ---
Today's Communication/Plan
-
Monitor vital signs see plan
Give Dulcolax now, if no improvement then will need enema
Hold tube feeds for now
Continue with laxatives
Hopeful discharge soon when vomiting resolves
Assessment / Plan
Assessment / Plan
Ms. 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
presents to the ER from [facility] with shortness of breath.
CXR
IMPRESSION:
Radiographic findings highly suggestive of pulmonary edema pattern with associated pleural effusions.
Acute hypoxic Respiratory Failure secondary to acute flash pulmonary edema from hypertensive emergency and acute on chronic diastolic congestive heart failure
ESRD on HD
-patient has not missed HD sessions, on admission she volume overloaded on exam requiring urgent HD, FPE likely 2/2 hypertensive emergency (see below)
- Continue with HD per nephrology
-Nephrology consult appreciated
-HD per renal
-O2 support as needed
UTI
Urine culture without significant growth. Finished 3 days of antibiotic
Vomiting secondary to severe constipation
X-ray abdomen suggestive of constipation, status post enema, suppository. Continue with laxative. Patient did have multiple bowel movements and tube feeds was restarted, patient continues to get intermittent nausea and vomiting. Repeat x-ray
abdomen suggestive of constipation. Give Dulcolax now. If no improvement then will need enema again. Hold tube feeds for now
If symptoms do not improve then likely will need GI imaging
Acute on Chronic Anemia
-patient with recent hospitalization at [facility] for GI bleed where she was told she had esophageal irritation and prescribed carafate
-per , she has had multiple transfusions over past 2 months
-iron studies show inflammation
-per , she has never had capsule endoscopy; she has had multiple CT scans
-she received 2 units PRBC overnight 04/13-04/14 with more than appropriate rise
-given appropriate rise with transfusion, possible initial Hg in ER was outlier and patient presented more anemic? I do not see evidence of active bleeding now
Continue to monitor hemoglobin
-patient is on PLavix for PAD, per vascular benefits are with low risk. Okay to discontinue Plavix
-patient will need follow up with outpatient physicians, and close monitoring Hg as outpatient
Requested records however per medical records this came empty
Non ischemic Troponin elevation in setting of hypertensive emergency and fluid overload
Troponin peaked at 0.301 - appreciate Cardiology consult
- Echo 04/13 with stage II diastolic dysfunction, aortic sclerosis without stenosis, elevated PASP
Hypertensive Emergency
Essential HTN
- Nitro drip weaned off
-continue home regimen:
Clonidine 0.3mg tube TID
Doxazosin 2mg tube daily
Hydralazine 100mg tube written as q 6h - ordered for TID here
-patient was on Nifedipine in past, not on [facility] list, now on amlodipine
Renal artery ultrasound unable to visualize. Defer CT angiogram or MR angiogram to nephrology
Added Aldactone
Hyponatremia
Monitor
Hypokalemia on 04/19
Which is now resolved
Bile Duct Cancer
-per family, patient is not a candidate for treatment at this point. They are hopeful for treatment
once acute issues resolve
Recent GI Bleed with diagnosis of esophageal irritation
-continue PPI, IV BID for now
-continue [employer] M[employer] SUPERINTENDENT carafate
Hx TIA
-SEED MILL SUPERINTENDENT aspirin
Recent hospitalizations at [facility]
-order in to obtain records; disk came however empty per medical records
HLD
-SEED MILL SUPERINTENDENT statin
Chronic Pain, Opiate Dependence
Calciphylaxis
-SEED M[employer] SUPERINTENDENT Oxycodone PRN
-IV sodium thiosulfate with HD
Hypothyroidism - SEED MILL SUPERINTENDENT Synthroid
Anxiety - SEED MILL SUPERINTENDENT Buspar
Gastroparesis
Chronic Pancreatitis
-recent placement G-J tube, need to obtain outside records
L medial heel with thin serosanguineous filled shallow blister, suspect healing stage 2 PI
Sacrum with healing stage 3 PI
DVT PPx SCD; heparin
FULL CODE - confirmed on admission
Accepted at [place] [facility]
I spent a total of 52 minutes with the patient or on the floor. More than 50% of this time involved counseling and coordination of care.
General: No Apparent Distress and Appears Chronically Ill
HEENT: PERRLA and Other (pale conjunctiva )
Respiratory: Decreased Breath Sounds
Cardiac: Regular Rhythm and S1/S2
GI: Soft and Nontender
Musculoskeletal: No Edema
Skin: Other (left leg calciphylaxis wounds )
Neuro: AO x 3
Psych: Calm
Anticipated Discharge: Within 24 hours
Subjective/Interval History
-
Date of Service: April 22, 2025
Objective Data
-
Labs:
Laboratory Results
04/22/25
03:19
WBC 7.6
Hgb 9.6 L
Hct 28.8 L
Plt Count 280
Sodium 134 L
Potassium 3.8
Chloride 103
Carbon Dioxide 24
BUN 22 H
Creatinine 2.0 H
Glucose 100 H
Calcium 9.2
Vital Signs:
Vital Signs
Temp Pulse Resp BP Pulse Ox
97.7 F 65 17 169/71 94
04/22/25 03:38 04/22/25 11:58 04/22/25 04:00 04/22/25 11:58 04/22/25 04:00
I&O
04/21/25 04/22/25 04/23/25
06:59 06:59 06:59
Intake Total 1360 / 1360 250 / 250
Output Total 250 / 250
Balance 1360 / 1360 0 / 0
[2025-04-22] MEDS: TRANSDERM-SCOP 1 PATCH TRANSDERM (15:00)
[2025-04-22] MEDS: APRESOLINE 10 MG IV (15:27)
[2025-04-22 19:51] LABS: Glucose - Point of Care 82 mg/dl (70-99)
[2025-04-22] MEDS: STERILE WATER FOR INJECTION IV (19:56)
--- NOTE | 2025-04-22 19:56 | PTCARENOTE ---
PAtient continued with intermittent nausea throughout the day. pt gagging with brushing of teeth and if HOB is lowered. Pt given PEG tube laxatives and Rectal suppository. She then passed a small hard stool, a small soft brown stool and large loose
stool.
[2025-04-22] MEDS: LIPITOR 20 MG TUBE (20:03)
[2025-04-22] MEDS: SENNA SYRUP 8.8 MG TUBE (20:03)
[2025-04-22] MEDS: REMERON 15 MG TUBE (21:36)
[2025-04-22] MEDS: PEPCID neonatal/peds 10 MG TUBE (21:38)
[2025-04-22] MEDS: XALATAN OPHTHALMIC SOLUTION 1 DROP BOTH EYES (21:40)
[2025-04-22 23:58] LABS: Glucose - Point of Care 77 mg/dl (70-99)
[2025-04-23] VITALS (31 sets, daily range): BP systolic 113–196; BP diastolic 53–85; PULSE 77; O2SAT 92–96; BMI 30.9
[2025-04-23] MEDS: APRESOLINE 100 MG TUBE ×3 (03:05→20:50)
[2025-04-23] MEDS: SYNTHROID 50 MCG TUBE (05:46)
[2025-04-23] MEDS: NOVOLOG FLEXPEN-LOW RESISTANCE SC ×4 (05:46→23:58)
[2025-04-23 05:47] LABS: Hematocrit 29.2 % (37.0-47.0); Hemoglobin 9.8 g/dL (12.0-16.0); Mean Corp Hgb Conc. 33.6 g/dL (33.0-37.0); Mean Corpuscular Volume 91.5 fL (81.0-99.0); Nucleated Red Blood Cells % 0 %; Platelet Count 283 10^3/uL (130-400); Red Cell Dist. Width 17.2 % (11.5-14.5)
[2025-04-23 05:55] LABS: Glucose - Point of Care 72 mg/dl (70-99)
[2025-04-23 06:15] LABS: Blood Urea Nitrogen 28 mg/dl (7-17); Calcium 9.3 mg/dl (8.4-10.2); Carbon Dioxide 21 mmol/L (22-30); Chloride 102 mmol/L (98-107); Estimated Creatinine Clearance 24 ml/min; Glucose 70 mg/dl (70-99); Potassium 3.9 mmol/L (3.5-5.1); Sodium 133 mmol/L (135-145); eGFR 19.74
--- NOTE | 2025-04-23 07:14 | W.PN.HOSP.TC ---
Today's Communication/Plan
-
resume TF and advance slowly
HD per renal
hopefully DC tomorrow
Assessment / Plan
Assessment / Plan
Ms. 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
presents to the ER from [facility] with shortness of breath.
CXR
IMPRESSION:
Radiographic findings highly suggestive of pulmonary edema pattern with associated pleural effusions.
Acute hypoxic Respiratory Failure secondary to acute flash pulmonary edema from hypertensive emergency and acute on chronic diastolic congestive heart failure
ESRD on HD
-patient has not missed HD sessions, on admission she was volume overloaded on ER exam requiring urgent HD, FPE likely 2/2 hypertensive emergency (see below)
-Continue with HD per nephrology
-Nephrology consult appreciated
-HD per renal
-she is off oxygen
UTI
Urine culture without significant growth. Finished 3 days of antibiotic
Vomiting secondary to severe constipation
X-ray abdomen suggestive of constipation, status post enema, suppository with persistent constipation and nausea
-now s/p multiple BM, she denies nausea
-will resume slow TF and advance as tolerated
-continue bowel regimen
Acute on Chronic Anemia
-patient with recent hospitalization at [facility] for GI bleed where she was told she had esophageal irritation and prescribed carafate
-per , she has had multiple transfusions over past 2 months
-iron studies show inflammation
-per , she has never had capsule endoscopy; she has had multiple CT scans
-she received 2 units PRBC overnight 04/13-04/14 with more than appropriate rise
-given appropriate rise with transfusion, possible initial Hg in ER was outlier and patient presented more anemic? I do not see evidence of active bleeding now
Continue to monitor hemoglobin
-patient is on PLavix for PAD, per vascular benefits are with low risk. Okay to discontinue Plavix
-patient will need follow up with outpatient physicians, and close monitoring Hg as outpatient
Requested records however per medical records this came empty
Non ischemic Troponin elevation in setting of hypertensive emergency and fluid overload
Troponin peaked at 0.301 - appreciate Cardiology consult
- Echo 04/13 with stage II diastolic dysfunction, aortic sclerosis without stenosis, elevated PASP
Hypertensive Emergency
Essential HTN
- Nitro drip weaned off
-continue home regimen:
Clonidine 0.3mg tube TID
Doxazosin 2mg tube daily
Hydralazine 100mg tube written as q 6h - ordered for TID here
-patient was on Nifedipine in past, not on [facility] list, now on amlodipine
Renal artery ultrasound unable to visualize. Defer CT angiogram or MR angiogram to nephrology
Added Aldactone
Hyponatremia
Monitor
Hypokalemia on 04/19
Which is now resolved
Bile Duct Cancer
-per family, patient is not a candidate for treatment at this point. They are hopeful for treatment
once acute issues resolve
Recent GI Bleed with diagnosis of esophageal irritation
-continue PPI, IV BID for now
-continue FORMULA MIXER carafate
Hx TIA
-FORMULA MIXER aspirin
Recent hospitalizations at [facility]
-order in to obtain records; disk came however empty per medical records
HLD
-FORMULA MIXER statin
Chronic Pain, Opiate Dependence
Calciphylaxis
-FORMULA MIXER Oxycodone PRN
-IV sodium thiosulfate with HD
Hypothyroidism - FORMULA MIXER Synthroid
Anxiety - FORMULA MIXER Buspar
Gastroparesis
Chronic Pancreatitis
-recent placement G-J tube, need to obtain outside records
L medial heel with thin serosanguineous filled shallow blister, suspect healing stage 2 PI
Sacrum with healing stage 3 PI
DVT PPx SCD; heparin
FULL CODE - confirmed on admission
Accepted at [facility]
I spent a total of 52 minutes with the patient or on the floor. More than 50% of this time involved counseling and coordination of care.
General: No Apparent Distress and Appears Chronically Ill
HEENT: PERRLA and Other (pale conjunctiva )
Respiratory: Decreased Breath Sounds
Cardiac: Regular Rhythm and S1/S2
GI: Soft and Nontender
Musculoskeletal: No Edema
Skin: Other (left leg calciphylaxis wounds )
Neuro: AO x 3
Psych: Calm
Anticipated Discharge: 24 - 48 hours
Subjective/Interval History
-
Date of Service: April 23, 2025
feeling well
she had multiple BM
denies nausea currently
no pain
Objective Data
-
Labs:
Laboratory Results
04/23/25
05:37
WBC 8.3
Hgb 9.8 L
Hct 29.2 L
Plt Count 283
Sodium 133 L
Potassium 3.9
Chloride 102
Carbon Dioxide 21 L
BUN 28 H
Creatinine 2.6 H
Glucose 70
Calcium 9.3
Vital Signs:
Vital Signs
Temp Pulse Resp BP Pulse Ox
97.6 F 69 16 174/60 94
04/23/25 07:12 04/23/25 06:00 04/23/25 06:00 04/23/25 06:00 04/23/25 06:00
I&O
04/22/25 04/23/25 04/24/25
06:59 06:59 06:59
Intake Total 250 / 250 350 / 350
Output Total 250 / 250 700 / 700
Balance 0 / 0 -350 / -350
Review of Systems
-
History Source: Patient
All other systems: Reviewed and negative
Physical Exam
-
General: No Apparent Distress and Appears Chronically Ill
HEENT: PERRLA and Other (pale conjunctiva )
Respiratory: Decreased Breath Sounds
Cardiac: Regular Rhythm and S1/S2
GI: Soft and Nontender
Musculoskeletal: No Edema
Skin: Warm, Dry and Other (left leg calciphylaxis wounds )
Neuro: AO x 3
Psych: Calm
Data Reviewed
-
Diagnostic Radiology: Report Reviewed by me
Labs: Labs Reviewed by me
[2025-04-23] MEDS: RETACRIT 8000 UNITS IV (08:41)
[2025-04-23] MEDS: HEPARIN 5000 UNITS SC ×2 (09:28→20:50)
[2025-04-23] MEDS: TRUSOPT 2% OPHTHALMIC SOLUTION 1 DROP BOTH EYES ×2 (09:31→20:53)
[2025-04-23] MEDS: TIMOPTIC 0.5% OPHTHALMIC SOLUTION 1 DROP BOTH EYES ×2 (09:31→20:52)
[2025-04-23] MEDS: SODIUM THIOSULFATE 350 GRAMS IV (10:37)
--- NOTE | 2025-04-23 10:43 | W.PN.NEPH.HD ---
Assessment
-
Seen on dialysis tolerating treatment
Progress Note - Hemodialysis
-
Date of Service: April 23, 2025
Duration: 30 minutes and 3 hours
Potassium Bath: 3
Calcium Bath: 2.5
Opti-Dialyzer: 160
Ultrafiltration: Other (3 kg as hemodynamically tolerate)
Blood Flow: 400
Dialysate Flow: 600
Heparin: None
EPO: 8000
[2025-04-23] MEDS: HEPARIN 4300 UNITS INTRACATH (11:21)
[2025-04-23 12:12] LABS: Glucose - Point of Care 65 mg/dl (70-99)
[2025-04-23] MEDS: WELLBUTRIN REGULAR RELEASE 300 MG TUBE (12:19)
[2025-04-23] MEDS: QUESTRAN 4 GRAM TUBE (12:20)
[2025-04-23] MEDS: MIRALAX 17 GRAMS TUBE (12:21)
[2025-04-23] MEDS: DEMADEX 100 MG TUBE (12:21)
[2025-04-23] MEDS: NORVASC 5 MG TUBE (12:22)
[2025-04-23] MEDS: NSS (PRESERVATIVE FREE) 10 ML IV ×2 (12:22→20:50)
[2025-04-23] MEDS: PROTONIX IV 40 MG IV ×2 (12:22→20:50)
[2025-04-23] MEDS: CARDURA 2 MG TUBE (12:23)
[2025-04-23] MEDS: LOW STRENGTH ASPIRIN 81 MG TUBE (12:23)
[2025-04-23] MEDS: ALDACTONE 25 MG PO (12:23)
[2025-04-23] MEDS: BUSPAR 30 MG TUBE ×2 (12:24→20:50)
[2025-04-23] MEDS: SENNA SYRUP 8.8 MG TUBE (12:25)
[2025-04-23] MEDS: CATAPRES 0.3 MG TUBE ×3 (12:25→20:50)
[2025-04-23] MEDS: DESENEX/MITRAZOL/ZEASORB 1 APPLIC TOPICAL ×2 (12:29→20:50)
[2025-04-23] MEDS: VITAMIN B-6 50 MG TUBE (12:29)
[2025-04-23] MEDS: CARAFATE SUSPENSION 1 GM TUBE ×2 (12:30→20:50)
[2025-04-23] MEDS: SENOKOT-S 1 TABLET TUBE (12:31)
[2025-04-23 12:40] LABS: Glucose - Point of Care 78 mg/dl (70-99)
--- NOTE | 2025-04-23 15:47 | CM ---
Patient from [facility] with with Hx ESRD on HD, gastroparesis with GJ tube, bile duct cancer with Dx Hypoxic Respiratory Failure, Pulmonary Edema, Heart Failure, UTI, Anemia. Room air. Nepro tube feeds. PT & OT; assist of 2, recommend
skilled rehab.
Message from Dr Howard; she is hoping to be able to discharge the patient tomorrow.
Spoke with [facility] (fax [phone]); provided update that patient is now medically ready for d/c to their SNF however insurance auth expires today. She agrees to accept the patient once updated auth is obtained.
Spoke with Peter [employer] distribution operation supervisor; request updated insurance auth beginning 04/24 for SNF, Pending Auth # [id number]. The assigned CM Sandra ([id number]) and her surgical supply assistant Jenna ([id number]) are both gone for the day. Can fax updated clinical to
fax [phone]---> sent via Active Fax.
Plan [facility] with [facility] once updated insurance auth is obtained.
[2025-04-23] MEDS: LIPITOR 20 MG TUBE (17:32)
--- NOTE | 2025-04-23 18:13 | PTCARENOTE ---
Addendum entered by Kenya Abraham RN 04/23/25 18:21:
Tube feeding started as ordered.
Original Note:
HD this am- tolerated well. BP started 190s/ 90 currently 120s/50. PT /OT eval and unable to get oob. difficulty in bending knees and very painful to turn. Turning q2 . Sacral foam changed today, Leg wound intact with prevelon boots intact.
EKG completed. Accu check 65 at noon- meds given via peg and started tube feeding repeat 78- Dr. Howard aware.
[2025-04-23] MEDS: STERILE WATER FOR INJECTION IV (18:38)
[2025-04-23 18:58] LABS: Glucose - Point of Care 96 mg/dl (70-99)
[2025-04-23] MEDS: REMERON 15 MG TUBE (20:50)
[2025-04-23] MEDS: SENNA SYRUP TUBE (20:52)
[2025-04-23] MEDS: QUESTRAN TUBE (20:52)
[2025-04-23] MEDS: ZOFRAN 4 MG IV (21:09)
[2025-04-23] MEDS: XALATAN OPHTHALMIC SOLUTION 1 DROP BOTH EYES (21:11)
[2025-04-23] MEDS: PEPCID neonatal/peds 10 MG TUBE (21:14)
--- NOTE | 2025-04-23 21:59 | PTCARENOTE ---
Caring for pt overnight. aaox3, pleasant. at bedside. NSR >QT. Remains on RA, no SOB. C/o generalized back pain. GJ tube. TF increased to 30ml/hr with 10ml flush. Pt had some nausea after administering meds & protonix (pt states protonix
makes her nauseous) zofran given. Fiber filled boots for her legs. LLE wound CDI. No edema. Q2T. R HD cath. Pale. Accu checks Q6hr. VSS. No other issues. Will monitor.
[2025-04-23 23:44] LABS: Glucose - Point of Care 109 mg/dl (70-99)
[2025-04-24] VITALS (7 sets, daily range): BP systolic 137–180; BP diastolic 60–83; BMI 29.8
[2025-04-24] MEDS: APRESOLINE 100 MG TUBE ×2 (05:00→12:34)
[2025-04-24] MEDS: NOVOLOG FLEXPEN-LOW RESISTANCE SC ×2 (05:06→13:48)
[2025-04-24 05:14] LABS: Glucose - Point of Care 117 mg/dl (70-99)
[2025-04-24] MEDS: SYNTHROID 50 MCG TUBE (06:11)
--- NOTE | 2025-04-24 08:15 | W.PN.HOSP.TC ---
Today's Communication/Plan
-
OK for discharge
Assessment / Plan
Assessment / Plan
Ms. 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
presents to the ER from [facility] with shortness of breath.
CXR
IMPRESSION:
Radiographic findings highly suggestive of pulmonary edema pattern with associated pleural effusions.
Acute hypoxic Respiratory Failure secondary to acute flash pulmonary edema from hypertensive emergency and acute on chronic diastolic congestive heart failure
ESRD on HD
-patient has not missed HD sessions, on admission she was volume overloaded on ER exam requiring urgent HD, FPE likely 2/2 hypertensive emergency (see below)
-Continue with HD per nephrology
-Nephrology consult appreciated
-HD per renal
-she is off oxygen
UTI
Urine culture without significant growth. Finished 3 days of antibiotic
Vomiting secondary to severe constipation
X-ray abdomen suggestive of constipation, status post enema, suppository with persistent constipation and nausea
-now s/p multiple BM, she denies nausea
-she is now tolerating TF
-continue bowel regimen at discharge
Acute on Chronic Anemia
-patient with recent hospitalization at [facility] for GI bleed where she was told she had esophageal irritation and prescribed carafate
-per , she has had multiple transfusions over past 2 months
-iron studies show inflammation
-per , she has never had capsule endoscopy; she has had multiple CT scans
-she received 2 units PRBC overnight 04/13-04/14 with more than appropriate rise
-given appropriate rise with transfusion, possible initial Hg in ER was outlier and patient presented more anemic? I do not see evidence of active bleeding now
Continue to monitor hemoglobin
-patient is on PLavix for PAD, per vascular benefits are with low risk. Okay to discontinue Plavix
-patient will need follow up with outpatient physicians, and close monitoring Hg as outpatient
Requested records however per medical records this came empty
Non ischemic Troponin elevation in setting of hypertensive emergency and fluid overload
Troponin peaked at 0.301 - appreciate Cardiology consult
- Echo 04/13 with stage II diastolic dysfunction, aortic sclerosis without stenosis, elevated PASP
Hypertensive Emergency
Essential HTN
- Nitro drip weaned off
-continue home regimen:
Clonidine 0.3mg tube TID
Doxazosin 2mg tube daily
Hydralazine 100mg tube written as q 6h - ordered for TID here
-patient was on Nifedipine in past, not on [facility] list, now on amlodipine
Renal artery ultrasound unable to visualize. Defer CT angiogram or MR angiogram to nephrology
Added Aldactone
Hyponatremia
Monitor
Hypokalemia on 04/19
Which is now resolved
Bile Duct Cancer
-per family, patient is not a candidate for treatment at this point. They are hopeful for treatment
once acute issues resolve
Recent GI Bleed with diagnosis of esophageal irritation
-continue PPI, IV BID for now
-continue [employer] carafate
Hx TIA
-MARKET B[employer]ET MAKER aspirin
Recent hospitalizations at [facility]
-order in to obtain records; disk came however empty per medical records
HLD
-MARKET BASKET [employer]KER statin
Chronic Pain, Opiate Dependence
Calciphylaxis
-MARKET BASKET MAKER Oxycodone PRN
-IV sodium thiosulfate with HD
Hypothyroidism - [employer] B[employer]KER Synthroid
Anxiety - [employer] B[employer]KER Buspar
Gastroparesis
Chronic Pancreatitis
-recent placement G-J tube, need to obtain outside records
L medial heel with thin serosanguineous filled shallow blister, suspect healing stage 2 PI
Sacrum with healing stage 3 PI
DVT PPx SCD; heparin
FULL CODE - confirmed on admission
Accepted at [facility]
I spent a total of 52 minutes with the patient or on the floor. More than 50% of this time involved counseling and coordination of care.
General: No Apparent Distress and Appears Chronically Ill
HEENT: PERRLA and Other (pale conjunctiva )
Respiratory: Decreased Breath Sounds
Cardiac: Regular Rhythm and S1/S2
GI: Soft and Nontender
Musculoskeletal: No Edema
Skin: Other (left leg calciphylaxis wounds )
Neuro: AO x 3
Psych: Calm
Anticipated Discharge: Today
Subjective/Interval History
-
Date of Service: April 24, 2025
tolerating tube feeds
no new concerns
having multiple BM with laxatives - will hold today
Objective Data
-
Vital Signs:
Vital Signs
Temp Pulse Resp BP Pulse Ox
98.4 F 71 20 180/70 95
04/24/25 03:02 04/24/25 04:00 04/24/25 04:00 04/24/25 04:00 04/24/25 04:00
I&O
04/23/25 04/24/25 04/25/25
06:59 06:59 06:59
Intake Total 350 / 350 400 / 400
Output Total 700 / 700 200 / 200
Balance -350 / -350 200 / 200
Review of Systems
-
History Source: Patient
All other systems: Reviewed and negative
Physical Exam
-
General: No Apparent Distress and Appears Chronically Ill
HEENT: PERRLA and Other (pale conjunctiva )
Respiratory: Decreased Breath Sounds
Cardiac: Regular Rhythm and S1/S2
GI: Soft and Nontender
Musculoskeletal: No Edema
Skin: Warm, Dry and Other (left leg calciphylaxis wounds )
Neuro: AO x 3
Psych: Calm
Data Reviewed
-
Diagnostic Radiology: Report Reviewed by me
Labs: Labs Reviewed by me
--- NOTE | 2025-04-24 08:32 | W.DS.TRANS ---
DC Summary - Body Shop Technician
-
Discharge Instructions:
Discharge Diagnosis/Procedures Acute hypoxic Respiratory Failure secondary to
acute flash pulmonary edema from hypertensive
emergency and acute on chronic diastolic
congestive heart failure
ESRD on hemodialysis
Urinary tract infection
Constipation
Acute on chronic anemia
Nonischemic myocardial injury
Hypertensive urgency
History of bile duct cancer
Diet Tube feeding,Other diet
Activity As tolerated,With assistance
Driving Restrictions Not until seen by your Dr
Bathing Restrictions None
Blood Work CBC and CMP at [facility] in one week
Instructions:
Stand-Alone Forms:
Changes to Home Medications: Yes
Discharge Medications:
DC Medications w/original date entered in [employer]
acetaminophen 325 mg tablet (Tylenol) 650 mg feeding tube Q6HPRN PRN mild pain 04/13/25
ammonium lactate 12 % topical cream 1 applic topical DAILYPRN PRN dry skin 04/13/25
aspirin 81 mg tablet,delayed release 81 mg feeding tube DAILY Blood Clot Prevention/Tx 04/13/25
bisacodyl 10 mg rectal suppository (Dulcolax (bisacodyl)) 10 mg PA DAILYPRN PRN constipation 04/13/25
bupropion HCl 100 mg tablet 300 mg PO DAILY g-tube/MENTAL 04/13/25
buspirone 30 mg tablet 30 mg feeding tube BID Antianxiety Agent 04/13/25
cholestyramine (with sugar) 4 gram powder for susp in a packet (Questran) 4 g feeding tube BID Gastrointestinal Issue 04/13/25
clonidine HCl 0.3 mg tablet 0.3 mg feeding tube TID Blood Pressure 04/13/25
colestipol 1 gram tablet (Colestid) 4 g PO BID g-tube/LIPIDS 04/13/25
dorzolamide-timolol (PF) 2 %-0.5 % eye drops in a dropperette 1 drp BOTH EYES BID Eye Condition 04/13/25
doxazosin 2 mg tablet 2 mg feeding tube DAILY BPH/HTN 04/13/25
famotidine 40 mg/5 mL (8 mg/mL) oral suspension 20 mg feeding tube HS Gastrointestinal Issue 04/13/25
gemfibrozil 600 mg tablet 600 mg feeding tube BID Antilipemic Agent 04/13/25
guaifenesin 200 mg/5 mL oral liquid 200 mg feeding tube Q4HPRN PRN cough 04/13/25
hydralazine 100 mg tablet 100 mg feeding tube Q8H Blood Pressure 04/13/25
hydroxyzine HCl 25 mg tablet 25 mg feeding tube Q6HPRN PRN itching 04/13/25
latanoprost 0.005 % eye drops 1 drp BOTH EYES HS Eye Condition 04/13/25
levothyroxine 50 mcg tablet (Synthroid) 50 mcg feeding tube DAILY Thyroid 04/13/25
melatonin 10 mg tablet 10 mg feeding tube HSPRN PRN sleep 04/13/25
mirtazapine 15 mg tablet 15 mg feeding tube HS Mental Health/Anxiety 04/13/25
nystatin 100,000 unit/gram topical powder 1 applic topical BID abd folds 04/13/25
omeprazole 40 mg capsule,delayed release 40 mg feeding tube DAILY GERD 04/13/25
pyridoxine (vitamin B6) 50 mg tablet 50 mg feeding tube DAILY Supplement 04/13/25
scopolamine base 1 mg over 3 days transdermal patch 1 patch transdermal Q3D Anticholinergic Agent 04/13/25
sennosides 8.6 mg-docusate sodium 50 mg tablet (Senna Plus) 1 tab-cap PO DAILY g-tube/CONSTIPATION 04/13/25
sodium thiosulfate 12.5 gram/50 mL (250 mg/mL) intravenous solution 25 g IV MOWEFR Antidote, Extravasation 04/13/25
sorbitol 70 % solution 30 ml PO DAILYPRN PRN constipation via g-tube 04/13/25
sucralfate 1 gram tablet (Carafate) 1 g feeding tube BID Gastrointestinal Issue 04/13/25
torsemide 100 mg tablet 100 mg feeding tube DAILY Fluid Retention/Swelling 04/13/25
vitamin B complex 1 tab feeding tube DAILY Supplement 04/13/25
ammonium lactate 12 % lotion 1 applic topical DAILYPRN PRN dry skin #0 grams 04/20/25
ondansetron HCl 4 mg tablet 4 mg feeding tube Q6H PRN nausea and vomiting #10 tabs 04/20/25
oxycodone 5 mg/5 mL oral solution 15 mg (15 mL) feeding tube Q6HPRN PRN severe pains 3 days #100 mL 04/20/25
amlodipine 5 mg tablet 5 mg feeding tube DAILY #30 tabs 04/24/25
polyethylene glycol 3350 17 gram oral powder packet (Miralax) 17 g feeding tube DAILY #0 ea 04/24/25
simvastatin 20 mg tablet 20 mg PO HS #30 tabs 04/24/25
spironolactone 25 mg tablet 25 mg PO DAILY #30 tabs 04/24/25
Home Medication Changes
Stop Plavix given risk of bleeding and need for frequent transfusions. Please follow up with your outpatient providers to discuss this change.
Continue aspirin 81mg daily.
Decrease Simvastatin from 40mg to 20mg (given interaction with Amlodipine)
You are newly started on Amlodipine 5mg daily and Spironolactone 25mg daily for high blood pressure.
Take Miralax every day to help prevent constipation (hold for loose stools). You may take twice a day if you are constipated.
Pending Results: No
[2025-04-24] MEDS: SENOKOT-S TUBE (08:35)
[2025-04-24] MEDS: MIRALAX TUBE (08:35)
[2025-04-24] MEDS: SENNA SYRUP TUBE (08:35)
[2025-04-24] MEDS: WELLBUTRIN REGULAR RELEASE 300 MG TUBE (08:36)
[2025-04-24] MEDS: CATAPRES 0.3 MG TUBE (08:36)
[2025-04-24] MEDS: DEMADEX 100 MG TUBE (08:36)
[2025-04-24] MEDS: VITAMIN B-6 50 MG TUBE (08:37)
[2025-04-24] MEDS: LOW STRENGTH ASPIRIN 81 MG TUBE (08:37)
[2025-04-24] MEDS: BUSPAR 30 MG TUBE (08:37)
[2025-04-24] MEDS: QUESTRAN 4 GRAM TUBE (08:37)
[2025-04-24] MEDS: ALDACTONE 25 MG PO (08:37)
[2025-04-24] MEDS: NORVASC 5 MG TUBE (08:37)
[2025-04-24] MEDS: CARDURA 2 MG TUBE (08:37)
[2025-04-24] MEDS: TIMOPTIC 0.5% OPHTHALMIC SOLUTION 1 DROP BOTH EYES (08:38)
[2025-04-24] MEDS: HEPARIN 5000 UNITS SC (08:38)
[2025-04-24] MEDS: NSS (PRESERVATIVE FREE) 10 ML IV (08:38)
[2025-04-24] MEDS: TRUSOPT 2% OPHTHALMIC SOLUTION 1 DROP BOTH EYES (08:38)
[2025-04-24] MEDS: PROTONIX IV 40 MG IV (08:39)
--- NOTE | 2025-04-24 10:36 | W.PN.NEPH.PH ---
Today's Communication / Plan
-
Dialysis tomorrow
Assessment/Plan
-
IMP:
Hypoxic Respiratory Failure
Heart Failure unknown EF, Acute Exacerbation
Hypertensive Emergency
Essential HTN
mild hyperkalemia
ESRD on HD at [place] MWF, righ IJ HD catheter
Hx TIA
Recent hospitalizations at [facility]
Acute on chronic anemia
h/o GIB
HLD
Chronic Pain, Opiate Dependence
Calciphylaxis
Hypothyroidism
hyponatremia
Anxiety
Gastroparesis- GJ tube
Chronic Pancreatitis
Recent diagnosis of biliary malignancy
Hypoalbuminemia
Plan:
A/w sob, HTN emergency from vol overload/previously on peritoneal dialysis changed to hemodialysis status post foot infection at [facility] and has been at [facility] [employer]
BP remains difficult to control -labile trend
suspected hyperaldo state , low renin and misti 11 with ratio 28: now on Aldactone, will titrate up to 50mg
renal duplex was limited study
echo noted mild LVF, DDII, pulm HTN, continue dry weight reduction as hemodynamically tolerated
sodium thiosulfate for caliphylaxis-with HD
renal diet and FR strictly
Tube feeds back off due to vomiting
Continue MWF
-
-
Date of Service: April 24, 2025
CC / HPI / ROS
-
Chief Complaint:
ESRD
History of Present Illness:
Hemoglobin stable
bp labile,
wt is significantly down
Review of Systems:
improved sob on RA
no cp
Weight is down 13kg since admit
Tube feed
Labs
-
Labs:
WBC 8.3 10^3/uL (4.8-10.8) 04/23/25 05:37
RBC 3.19 10^6/uL (4.20-5.40) L 04/23/25 05:37
Hgb 9.8 g/dL (12.0-16.0) L 04/23/25 05:37
Hct 29.2 % (37.0-47.0) L 04/23/25 05:37
Plt Count 283 10^3/uL (130-400) 04/23/25 05:37
Sodium 133 mmol/L (135-145) L 04/23/25 05:37
Potassium 3.9 mmol/L (3.5-5.1) 04/23/25 05:37
Chloride 102 mmol/L (98-107) 04/23/25 05:37
Carbon Dioxide 21 mmol/L (22-30) L 04/23/25 05:37
BUN 28 mg/dl (7-17) H 04/23/25 05:37
Creatinine 2.6 mg/dL (0.6-1.0) H 04/23/25 05:37
eGFR 19.74 04/23/25 05:37
Glucose 70 mg/dl (70-99) 04/23/25 05:37
Calcium 9.3 mg/dl (8.4-10.2) 04/23/25 05:37
Qor-S-Jmrapktwjrm Pept > 72478 pg/ml 04/13/25 09:43
Albumin 2.8 g/dl (3.5-5.0) L 04/13/25 09:43
Physical Exam
-
Vital Signs:
Vital Signs
Temp Pulse Resp BP Pulse Ox
98.4 F 80 20 147/63 95
04/24/25 03:02 04/24/25 08:37 04/24/25 04:00 04/24/25 08:37 04/24/25 04:00
Cardiovascular:: Regular rate and rhythm
Respiratory:: Bilateral: CTA (decreased)
Lung Excursion:: Normal
Abdomen:: Nontender and Soft
Extremity Edema:: None: Bilateral:
Simon Catheter: No
Other Findings::
leg in bandage for calciphylaxis
[2025-04-24] MEDS: CARAFATE SUSPENSION TUBE (11:02)
--- NOTE | 2025-04-24 11:09 | PTCARENOTE ---
Pt for d.c. today to [facility]. RN attempted to call report x2. hotel desk clerk transferred call to the unit where no one answered and then call was disconnected. Will continue efforts to call report. Pt for ambulance pickling machine operator at 1300
--- NOTE | 2025-04-24 11:44 | SUR.PHASEI ---
Still unable to reach RN for report at [facility]. Left voicemail
--- NOTE | 2025-04-24 12:17 | CM ---
Patient from [facility] with with Hx ESRD on HD, gastroparesis with GJ tube, bile duct cancer with Dx Hypoxic Respiratory Failure, Pulmonary Edema, Heart Failure, UTI, Anemia. Room air. Nepro tube feeds. PT & OT; assist of 2, recommend
skilled rehab.
Spoke with nurse Bibi who confirms she is allowed to send 2 bottles Nepro with the patient.
Spoke with Yaima, [facility] (fax [phone]); she has the updated insurance auth left on her answering machine yesterday. They are able to accept the patient today. Yaima says they ordered Nepro for patient however have
not received it yet- she requested Nepro be sent with patient- she is aware we are permitted to send 2 bottles Nepro with the patient today. Transport to [facility] was arranged by the SNF for outpt HD tomorrow. Script for Oxycodone faxed to
SNF. The ph for report [phone], fax [phone].
Met with patient and spoke with Aramis; both agree with d/c today to [facility] by ambulance. IMM completed. will meet patient at SNF today.
Plan [facility] today by ambulance, with [facility] HD.
[2025-04-24] MEDS: DESENEX/MITRAZOL/ZEASORB 1 APPLIC TOPICAL (12:33)
[2025-04-24 13:18] LABS: Glucose - Point of Care 157 mg/dl (70-99)
--- NOTE | 2025-04-24 14:30 | W.DCSUMMARY ---
Discharge Summary
Discharge Data
Date of Admission: 04/13/25
Date of Discharge: 04/24/25
-
Pending Results: No
Hospital Course
Discharging Physician : Dr. Shahrzad Howard
Disposition : SNF
Primary care physician : Dr. Mario Peres
Principal Discharge diagnosis :
Acute hypoxic Respiratory Failure secondary to acute flash pulmonary edema from hypertensive emergency and acute on chronic diastolic congestive heart failure
ESRD on hemodialysis
Urinary tract infection
Constipation
Acute on chronic anemia
Nonischemic myocardial injury
Hypertensive urgency
History of bile duct cancer
Hospital Course :
Ms. 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
presents to the ER from [facility] with shortness of breath. She was found to be in tachypneic with RR in 30's, pulse 102 and BP 219/103. Labs with WBC 12.8, Hg 7.1, K+ 5.4, CO2 22. CXR suggestive of pulmonary edema.
Patient was admitted to the IMU for urgent hemodialysis in setting of hypertensive emergency and flash pulmonary edema. Nephrology and Cardiology were consulted. Her respiratory status improved with fluid removal with hemodialysis. She had mild
Troponin elevation in setting of nonischemic myocardial injury 2/2 fluid overload. TTE without regional wall motion abnormality, mild to moderate MR and TR noted.
Patient's Hg on admit was 7.2 then dropped to 5.8 post dialysis without evidence of cassia bleeding. She received 2 units PRBC with appropriate rise and Hg remained stable through remainder of hospital course. It is 9.8 on day of discharge. Patient
has required multiple transfusions over past several months. Case discussed with Vascular surgery who stated OK to hold Plavix as risks of bleeding and life threatening anemia outweigh benefits at this point. Patient to follow up closely with
outpatient providers.
Patient was started on Amlodipine and Spironolactone to help manage hypertension. Suspected hyperaldosterone state with ARR 28.
Hospital course complicated by nausea/vomiting and inability to tolerate tube feeds in setting of constipation. She was treated with a bowel regimen and after multiple stools her nausea is resolved, and TF have reached goal.
*Please see daily progress notes for more details of hospital stay.
Time spent on discharge was 40 minutes.
Important imaging findings :
TTE 04/13/25
CONCLUSIONS
Normal biventricular size and systolic function without regional wall motion
abnormality.
Mild concentric left ventricular hypertrophy.
Stage II diastolic dysfunction suggestive of abnormal relaxation and increased
filling pressures.
Moderate left atrial enlargement.
Mitral annular calcification.
Mild to moderate mitral regurgitation.
Aortic sclerosis without stenosis.
Mild to moderate tricuspid regurgitation.
Elevated pulmonary artery pressure, estimated PASP 45-50 mmHg.
No prior study available for comparison.
Indications:
acute heart failure
Procedure findings :
Discharge Plan
-
Patient Disposition: Alf/SNF
Discharge Diagnosis/Procedures: Acute hypoxic Respiratory Failure secondary to acute flash pulmonary edema from hypertensive emergency and acute on chronic diastolic congestive heart failure
ESRD on hemodialysis
Urinary tract infection
Constipation
Acute on chronic anemia
Nonischemic myocardial injury
Hypertensive urgency
History of bile duct cancer
Condition: Fair
Diet: Tube feeding and Other diet
Activity: With assistance and As tolerated
Driving Restrictions: Not until seen by your Dr
Bathing Restrictions: None
Blood Work: CBC and CMP at SNF in one week
Activity Restrictions/Additional Instructions:
Wound Care Instructions
Sacrum: clean with saline, skin prep periwound, smear of Honey gel, adaptic and dry dressing daily.
Heels: Silicone foams change q other day. (*If L medial heel starts to drain add adaptic and dry gauze dressing instead of foam.)
L leg: clean with saline, or soap and water, adaptic, abd pad and bill change q other day and prn drainage.
Ammonium lactate lotion to dry skin on body daily and prn dryness
fungal powder to skin folds bid.
Air mattress with turning schedule
offloading heel boots when in bed
bariatric air cushion when sitting
Can take both boots and air cushion upon discharge
Follow up at wound care center call for an appointment.
Referrals:
Stoney Mcneill MD [Active, Cardiology]
Mario Peres DO [Family Provider, Internal Medicine] - in less than 1 week
Kya Robbins MD [Active, Nephrology]
Additional Discharge Medication Instructions: Stop Plavix given risk of bleeding and need for frequent transfusions. Please follow up with your outpatient providers to discuss this change.
Continue aspirin 81mg daily.
Decrease Simvastatin from 40mg to 20mg (given interaction with Amlodipine)
You are newly started on Amlodipine 5mg daily and Spironolactone 25mg daily for high blood pressure.
Take Miralax every day to help prevent constipation (hold for loose stools). You may take twice a day if you are constipated.
Prescriptions:
New
ammonium lactate 12 % Lotion
1 applic topical DAILYPRN PRN (Reason: dry skin) Qty: 0 0RF
ondansetron HCl 4 mg tablet
4 mg feeding tube Q6H PRN (Reason: nausea and vomiting) Qty: 10 0RF
spironolactone 25 mg Tablet
25 mg PO DAILY Qty: 30 0RF
amlodipine 5 mg Tablet
5 mg feeding tube DAILY Qty: 30 0RF
simvastatin 20 mg tablet
20 mg PO HS Qty: 30 0RF
oxycodone 5 mg/5 mL Solution
15 mg feeding tube Q6HPRN PRN (Reason: severe pains) Qty: 100 0RF
Continued
latanoprost 0.005 % Drops
1 drp BOTH EYES HS
acetaminophen [Tylenol] 325 mg Tablet
650 mg feeding tube Q6HPRN PRN (Reason: mild pain)
sodium thiosulfate 12.5 gram/50 mL (250 mg/mL) Solution
25 g IV MOWEFR
Rx Instructions:
okay to give 300ml bag
sucralfate [Carafate] 1 gram Tablet
1 g feeding tube BID
sennosides-docusate sodium [Senna Plus] 8.6-50 mg Tablet
1 tab-cap PO DAILY
clonidine HCl 0.3 mg Tablet
0.3 mg feeding tube TID
omeprazole 40 mg Capsule,Delayed Release(Dr/Ec)
40 mg feeding tube DAILY
aspirin 81 mg Tablet,Delayed Release (Dr/Ec)
81 mg feeding tube DAILY
bupropion HCl 100 mg Tablet
300 mg PO DAILY
torsemide 100 mg Tablet
100 mg feeding tube DAILY
gemfibrozil 600 mg Tablet
600 mg feeding tube BID
levothyroxine [Synthroid] 50 mcg Tablet
50 mcg feeding tube DAILY
bisacodyl [Dulcolax (bisacodyl)] 10 mg Suppository
10 mg OK DAILYPRN PRN (Reason: constipation)
hydralazine 100 mg Tablet
100 mg feeding tube Q8H
buspirone 30 mg Tablet
30 mg feeding tube BID
pyridoxine (vitamin B6) 50 mg Tablet
50 mg feeding tube DAILY
vitamin B complex Tablet
1 tab feeding tube DAILY
hydroxyzine HCl 25 mg Tablet
25 mg feeding tube Q6HPRN PRN (Reason: itching)
ammonium lactate 12 % Cream
1 applic TOPICAL DAILYPRN PRN (Reason: dry skin)
mirtazapine 15 mg Tablet
15 mg feeding tube HS
famotidine 40 mg/5 mL (8 mg/mL) Suspension For Reconstitution
20 mg feeding tube HS
nystatin 100,000 unit/gram Powder
1 applic TOPICAL BID
scopolamine base 1 mg over 3 days Patch 3 Day
1 patch TRANSDERMAL Q3D
sorbitol 70 % Solution
30 ml PO DAILYPRN PRN (Reason: constipation via g-tube)
colestipol [Colestid] 1 gram Tablet
4 g PO BID
doxazosin 2 mg Tablet
2 mg feeding tube DAILY
guaifenesin 200 mg/5 mL Liquid
200 mg feeding tube Q4HPRN PRN (Reason: cough)
cholestyramine (with sugar) [Questran] 4 gram Powder In Packet
4 g feeding tube BID
dorzolamide-timolol (PF) 2-0.5 % Dropperette
1 drp BOTH EYES BID
melatonin 10 mg Tablet
10 mg feeding tube HSPRN PRN (Reason: sleep)
Changed
polyethylene glycol 3350 [Miralax] 17 gram Powder In Packet
17 g feeding tube DAILY Qty: 0 0RF
Rx Instructions:
Ok to increase it to twice a day if constipated. Hold for loose stools.
Discontinued
oxycodone 5 mg/5 mL Solution
15 mg feeding tube Q6HPRN PRN (Reason: severe pains)
clopidogrel [Plavix] 75 mg Tablet
75 mg feeding tube DAILY
simvastatin [Zocor] 40 mg Tablet
40 mg feeding tube HS
Discharge Orders:
Discharge Patient (As Directed); Ordered 04/24/25
Ordered By: Shahrzad Howard
Discharge Date and Time
Discharge Date/Time: 04/24/25 13:33
Print Language: [email or web address]
== END 2025-04-24 13:33 | DRG 291 ==
LOC: IMU 11:17
PROVIDERS: Internal Medicine; Internal Medicine Nephrology; Specialist; ADMITTING PHYSICIAN Student in an Organized Health Care Education/Training Program; CONSULT PHYSICIAN Internal Medicine; EMERGENCY PHYSICIAN Emergency Medicine; FAMILY PHYSICIAN Internal Medicine
PROC: 5A09357 Assistance with Respiratory Ventilation, Less than 24 Consecutive Hours, Continuous Positive Airway Pressure (ICD-10-PCS; 2025-04-13)
PROC: 30233N1 Transfusion of Nonautologous Red Blood Cells into Peripheral Vein, Percutaneous Approach (ICD-10-PCS; 2025-04-13)
PROC: 5A1D70Z Performance of Urinary Filtration, Intermittent, Less than 6 Hours Per Day (ICD-10-PCS; 2025-04-13)
DX: I13.2 Hypertensive heart and chronic kidney disease with heart failure and with stage 5 chronic kidney disease, or end stage renal disease (principal); I50.33 Acute on chronic diastolic (congestive) heart failure; L89.153 Pressure ulcer of sacral region, stage 3; J96.01 Acute respiratory failure with hypoxia; N18.6 End stage renal disease; I16.1 Hypertensive emergency; K86.1 Other chronic pancreatitis; F11.20 Opioid dependence, uncomplicated; C24.0 Malignant neoplasm of extrahepatic bile duct; E87.1 Hypo-osmolality and hyponatremia; N39.0 Urinary tract infection, site not specified; I5A Non-ischemic myocardial injury (non-traumatic); E03.9 Hypothyroidism, unspecified; K21.9 Gastro-esophageal reflux disease without esophagitis; E83.59 Other disorders of calcium metabolism; E11.22 Type 2 diabetes mellitus with diabetic chronic kidney disease; E11.43 Type 2 diabetes mellitus with diabetic autonomic (poly)neuropathy; G89.29 Other chronic pain; F41.9 Anxiety disorder, unspecified; E88.09 Other disorders of plasma-protein metabolism, not elsewhere classified; I34.0 Nonrheumatic mitral (valve) insufficiency; I70.0 Atherosclerosis of aorta; K59.00 Constipation, unspecified; D63.8 Anemia in other chronic diseases classified elsewhere; K31.84 Gastroparesis; I34.81 Nonrheumatic mitral (valve) annulus calcification; I07.1 Rheumatic tricuspid insufficiency; L89.622 Pressure ulcer of left heel, stage 2; E78.00 Pure hypercholesterolemia, unspecified; E87.5 Hyperkalemia; E87.6 Hypokalemia; Z86.73 Personal history of transient ischemic attack (TIA), and cerebral infarction without residual deficits; Z93.1 Gastrostomy status; Z99.2 Dependence on renal dialysis; Z79.02 Long term (current) use of antithrombotics/antiplatelets; Z95.820 Peripheral vascular angioplasty status with implants and grafts; Z87.19 Personal history of other diseases of the digestive system; Z88.0 Allergy status to penicillin; Z88.8 Allergy status to other drugs, medicaments and biological substances; Z91.040 Latex allergy status; Z79.82 Long term (current) use of aspirin; Z79.890 Hormone replacement therapy
CPT/HCPCS: 71045; 74018; 80048; 80053; 80061; 81003; 81015; 82088; 82728; 82805; 82962; 83036; 83540; 83550; 83735; 83880; 84244; 84484; 85018; 85025; 85027; 86704; 86705; 86706; 86850; 86900; 86901; 86920; 87070; 87086; 87340; 93005; 93306; 93975; 94660; 96374; 97110; 97163; 97167; 97535; 99291; G0257; P9016; P9047; Q5106